=== PATIENT | male | born 1970 | race Hispanic/Latino ===

== ENCOUNTER 2024-02-09 08:09 | Inpatient (IN) | payer SELFPAY ==
[~2024-02-09] VITALS: Ht 175.3 cm; Wt 96.5 kg
--- NOTE | 2024-02-09 08:23 | EKG ---
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
--- NOTE | 2024-02-09 08:32 | ERN ---
General Chief Complaint: Shortness of Breath Stated Complaint: SOB X 1 MONTH Time Seen by MD: 08:11 Source: patient History of Present Illness Initial Comments Patient is a 54-year-old male coming in to be evaluated for shortness of breath. Per patient he has been having this shortness of breath every morning for one month. He states he walks around and the symptoms improved on their own. He also states that he has a history of high blood pressure but has not been taking his medication. Allergies: Coded Allergies: No Known Drug Allergies (Unverified Allergy, Intermediate, 02/09/24) Past Medical History Past Medical History: Hypertension Past Surgical History: None ROS Dictation CONSTITUTIONAL: No chills, no fever, no weakness, no diaphoresis, no malaise. HEAD/FACE: No signs of trauma. EENT: No eye pain, no blurred vision, no tearing, no double vision, no ear pain, no ear discharge, no nose pain, no nasal congestion, no throat pain, no throat swelling, no mouth pain. RESPIRATORY: No cough, no orthopnea, no SOB, no stridor, no wheezing. CARDIOVASCULAR: No chest pain, no edema, no palpitations, no syncope. GASTROINTESTINAL/ABDOMINAL: No abdominal pain, no constipation, no diarrhea, no nausea, no vomiting. GENITOURINARY: No abnormal discharge, no dysuria, no frequent urination, no hematuria. No complaints of pain in the genitals. MUSCULOSKELETAL: No back pain, no gout, no joint pain, no joint swelling, no muscle pain, no muscle stiffness, no neck pain. INTEGUMENTARY: No change in color, no change in hair/nails, no dryness, no lesion, no lumps, no rash. NEUROLOGICAL/PSYCH: No anxiety, not depressed, no emotional problem, no headache, no numbness, no pre-existing deficit, no history of seizures, no tremors, no weakness. HEMATOLOGIC/LYMPHATIC: Not anemic, no history of blood clots, no apparent bleeding, no bruising, glands not swollen. All Systems Negative, Except as Noted. Physical Exam Physical Exam Dictation VITAL SIGNS: Reviewed. GENERAL APPEARANCE: Alert, oriented x3, no acute distress, obese. HEAD AND FACE: Non-traumatic. EYES: PERRL, pink conjunctivas, eyelid no trauma, anterior chamber clear. EARS: Pinnas intact and no signs of trauma or erythema. Ear canals clear and no discharge. TMs no erythema. NOSE: No discharge, no bleeding. OROPHARYNX: Mouth normal, teeth no caries, tongue pink. Pharynx clear, no erythema. Tonsils no exudates, no abscesses noted. Mucous membrane moist. NECK: Supple, non-tender, no thyromegaly, no masses, no JVD, no bruits. BREAST: Deferred. CHEST: No tenderness, no crepitus, no paradoxical movement, no retractions. LUNGS: Clear, well-ventilated, symmetric, no rales, no wheezing, no rhonchi, no stridor, good breath sounds bilaterally. HEART: Regular rate, regular rhythm, no murmur, no gallops. VASCULAR: No peripheral edema. ABDOMEN: Soft, positive bowel sounds, nondistended, no guarding, nontender, no rebound, no masses no hepatomegaly, no splenomegaly, no Payne's sign, no hernias. RECTAL: Deferred. GENITAL: Deferred. NEUROLOGICAL: Normal speech, gross motor function intact, gross sensory function intact. MUSCULOSKELETAL: Neck nontender, full range of motion, back nontender, full range of motion. EXTREMITIES: Nontender, full range of motion. SKIN: Color pink, dry, no turgor, no rash, no lacerations, no abrasions, no contusions. LYMPHATICS: Deferred. Results Laboratory and Microbiology Lab and Micro Result Laboratory Tests Test 02/09/24 08:34 02/09/24 10:11 White Blood Count 6.1 K/uL (4.8-10.8) Red Blood Count 5.71 MIL/uL (4.50-6.20) Hemoglobin 16.6 g/dL (14.0-18.0) Hematocrit 48.9 % (42-54) Mean Corpuscular Volume 85.6 fL (79-99) Mean Corpuscular Hemoglobin 29.1 pg (27.0-33.0) Mean Corpuscular Hemoglobin Concent 33.9 g/dL (32.0-36.0) Red Cell Distribution Width 12.9 % (11.0-15.5) Platelet Count 156 K/uL (130-400) Mean Platelet Volume 10.8 fL (7.5-10.5) H Immature Granulocyte % (Auto) 0.2 % (0-1) Neutrophils (%) (Auto) 64.8 % (40.0-77.0) Lymphocytes (%) (Auto) 25.7 % (21.0-51.0) Monocytes (%) (Auto) 6.9 % (3.0-13.0) Eosinophils (%) (Auto) 2.1 % (0.0-8.0) Basophils (%) (Auto) 0.3 % (0.0-5.0) Neutrophils # (Auto) 3.9 K/uL (1.8-7.7) Lymphocytes # (Auto) 1.6 K/uL (1.0-4.8) Monocytes # (Auto) 0.4 K/uL (0.1-1.0) Eosinophils # (Auto) 0.13 K/uL (0.00-0.70) Basophils # (Auto) 0.02 K/uL (0.00-0.20) Absolute Immature Granulocyte (auto 0.01 K/uL (0-1) Nucleated Red Blood Cells 0.0 % (0.0-0.19) Prothrombin Time 10.6 SEC (9.6-11.6) Prothromb Time International Ratio 0.98 (0.85-1.15) Activated Partial Thromboplast Time 27.1 SEC (26.3-35.5) Sodium Level 143 mmol/L (136-145) Potassium Level 3.3 mmol/L (3.5-5.1) L Chloride Level 104 mmol/L (101-111) Carbon Dioxide Level 31 mmol/L (21-32) Blood Urea Nitrogen 8 mg/dL (7-18) Creatinine 0.9 mg/dL (0.5-1.3) Glomerular Filtration Rate Calc 100 mL/min (>90) Random Glucose 106 mg/dL (70-105) H Total Calcium 8.6 mg/dL (8.5-10.1) Magnesium Level 1.90 mg/dL (1.80-2.40) Total Creatine Kinase 126 U/L (21-232) Troponin I High Sensitivity 641 ng/L (4-75) *H 652 ng/L (4-75) *H B-Type Natriuretic Peptide 144 pg/mL (0-100) H Labs Reviewed?: Yes EKG/XRAY/US/CT/MRI EKG Comment 02/09/2024 time 7:49 a.m. Ventricular rate [address] wave elevation or depression [place] 182 MDM MDM: Differential diagnosis: Rationale: Tests considered and ordered secondary to shared decision making include: Previous outside records reviewed: Old ER visits. Risk of complication and/or morbidity or mortality of patient management: None Medications-Per medication reconciliation Need for hospitalization: Patient does not meet criteria for hospitalization. Need for emergency major/minor surgery: No There are no social concerns with this patient. Prescription drug management Prescriptions will include symptomatic care Patient's prior external medical records from other ER visits were reviewed by me as indicated. Prior testing and results from previous visits were reviewed. Prior tests were taken into account with medical decision making and resource utilization, independent historian/historians were used to obtain complete medical history. I independently interpreted the test that were performed, results were reviewed by me and considered findings on radiology if ordered. Medical management and examination interpretation discussions were had by me with other qualified healthcare professionals as indicated for the patient's care. ED Course Orders Procedure Category Date Status Time 12 Lead Ekg Tracing- EKG 02/09/24 Complete Technical 08:15 Cbc With Differential LAB 02/09/24 Complete 08:22 Prothrombin Time With LAB 02/09/24 Complete INR 08:22 B-Type Natriuretic LAB 02/09/24 Complete Peptide 08:22 Chest 1vw RAD 02/09/24 Resulted 08:22 Magnesium LAB 02/09/24 Complete 08:22 Creatine Kinase, Total LAB 02/09/24 Complete 08:22 Troponin I High LAB 02/09/24 Complete Sensitivity 08:22 Urinalysis Profile LAB 02/09/24 Logged 08:22 Partial LAB 02/09/24 Complete Thromboplastin Time 08:22 Basic Metabolic Panel LAB 02/09/24 Complete 08:22 Troponin I High LAB 02/09/24 Complete Sensitivity 09:50 Aspirin 325mg Tab PHA 02/09/24 Complete (Aspirin 325mg Tab) 10:00 Heparin 5,000 Unit PHA 02/09/24 In Process Vial (Heparin 5,000 U 10:00 Labetalol 20mg Syg PHA 02/09/24 Complete (Trandate 20mg Syg) 12:00 Clonidine Hcl 0.2 Mg PHA 02/09/24 Complete Tablet (Catapres 0. 12:00 Vital Signs(Adult CPOE 02/09/24 Transmitted Hospitalist) 12:02 Nurse To Enter Home CPOE 02/09/24 Transmitted Medication 12:02 Admit Orders ADM 02/09/24 Transmitted 12:02 Edm Admit Bridge Order ADM 02/09/24 Transmitted 12:02 Current Medications Medications (Trade) Dose Ordered Sig/Chris Route PRN Reason Start Time Stop Time Status Last Admin Dose Admin Aspirin (Aspirin 325mg Tab) 325 mg ONCE ONCE PO 02/09/24 10:00 02/09/24 10:01 DC Clonidine HCl (CATApres 0.2 MG TAB) 0.2 mg ONCE ONCE PO 02/09/24 12:00 02/09/24 12:01 DC Heparin Sodium (Porcine) (HEParin 5,000 UNIT VIAL) 5,000 unit Q12H SQ 02/09/24 10:00 03/10/24 09:59 Labetalol HCl (TRANdate 20MG SYG) 10 mg ONCE ONCE IV 02/09/24 12:00 02/09/24 12:02 DC Vital Signs Date Time Temp Pulse Resp B/P (MAP) Pulse Ox O2 Delivery O2 Flow Rate FiO2 02/09/24 08:11 98.6 101 20 226/145 96 Room Air 0 Critical Care Note Comments Critical Care Procedure Note Authorized and Performed by: Total critical care time: Approximately 36 minutes Due to a high probability of clinically significant, life threatening deterioration, the patient required my highest level of preparedness to intervene emergently and I personally spent this critical care time directly and personally managing the patient. This critical care time included obtaining a history; examining the patient; pulse oximetry; ordering and review of studies; arranging urgent treatment with development of a management plan; evaluation of patient's response to treatment; frequent reassessment; and, discussions with other providers. This critical care time was performed to assess and manage the high probability of imminent, life-threatening deterioration that could result in multi-organ failure. It was exclusive of separately billable procedures and treating other patients and teaching time. Please see MDM section and the rest of the note for further information on pa tient assessment and treatment. DX & DISP Disposition: Inpatient Decision to Admit Time: 12:17 Departure Impression: Primary Impression: NSTEMI (non-ST elevated myocardial infarction) Condition: Stable Referrals: NONE (PCP) I have reviewed, & agreed with my scribe's, documentation. (Entered by Carola Sam, acting as a scribe for Dr. Fay) I personally scribed for SIMIN FAY MD ([email or web address]) on 02/09/24 at 09:52. Electronically submitted by Carola Sam ([email or web address]). SIMIN FAY MD Feb 09, 2024 08:32
[2024-02-09 08:42] LABS: BASOPHILS # (AUTO) 0.02 K/uL (0.00-0.20); BASOPHILS % (AUTO) 0.3 % (0.0-5.0); EOSINOPHILS # (AUTO) 0.13 K/uL (0.00-0.70); EOSINOPHILS % (AUTO) 2.1 % (0.0-8.0); HEMATOCRIT 48.9 % (42-54); IMMATURE GRANULOCYTE ABSOLUTE 0.01 K/uL (0-1); LYMPHOCYTES # (AUTO) 1.6 K/uL (1.0-4.8); LYMPHOCYTES % (AUTO) 25.7 % (21.0-51.0); MEAN CORPUSCULAR HEMOGLOBIN 29.1 pg (27.0-33.0); MEAN CORPUSCULAR HGB CONC 33.9 g/dL (32.0-36.0); MEAN CORPUSCULAR VOLUME 85.6 fL (79-99); MONOCYTES # (AUTO) 0.4 K/uL (0.1-1.0); MONOCYTES % (AUTO) 6.9 % (3.0-13.0); NEUTROPHILS # (AUTO) 3.9 K/uL (1.8-7.7); NEUTROPHILS % (AUTO) 64.8 % (40.0-77.0); PLATELET COUNT (AUTO) 156 K/uL (130-400); RED BLOOD CELL COUNT(AUTO) 5.71 MIL/uL (4.50-6.20); RED CELL DISTRIBUTION WIDTH 12.9 % (11.0-15.5); WHITE BLOOD COUNT (AUTO) 6.1 K/uL (4.8-10.8)
[2024-02-09 08:50] LABS: CREATININE 0.9 mg/dL (0.5-1.3); POTASSIUM 3.3 mmol/L (3.5-5.1)
[2024-02-09 08:54] LABS: INR 0.98 (0.85-1.15); PROTHROMBIN TIME 10.6 SEC (9.6-11.6)
[2024-02-09 08:55] LABS: MAGNESIUM 1.9 mg/dL (1.80-2.40); PARTIAL THROMBOPLASTIN TIME 27.1 SEC (26.3-35.5)
[2024-02-09 09:11] LABS: B-TYPE NATRIURETIC PEPTIDE 144 pg/mL (0-100)
[2024-02-09] MEDS ORDERED: HEParin 5,000 UNIT VIAL SQ SCH (10:00)
--- NOTE | 2024-02-09 10:37 | HMCIMG ---
CHEST 1VW REASON: sob COMPARISON: None. FINDINGS: Single view of the chest was obtained. Lungs are clear. Heart size is normal. There is no pulmonary vascular congestion. Mediastinum and bony thorax appear unremarkable. IMPRESSION: 1. Normal single view chest x-ray.
[2024-02-09] MEDS ORDERED: LAbetaLOL 20MG SYG IV ONE (12:00)
--- NOTE | 2024-02-09 13:43 | HP ---
[facility] Date of Service: Feb 09, 2024 Time of Service: 13:28 HISTORY OF PRESENT ILLNESS: [ ] This is a 54-year-old male that presents in ER with concerns of shortness a breath. Onset one week, however today was different shortness of breast duration was longer. He reports he only happens in the morning when he is getting dressed to go to work. Patient also reports edema to lower extremity occasionally over the past week. Associated symptoms racing of the heart. Denied chest pain,or dizziness Patient denies smoking but does report drinks alcohol on a daily basis eight beers daily. Patient has significant medical history hypertension hyperlipidemia however noncompliance with medication treatment. Labs in ER: Troponin 641 and 652 with a BNP of 144. vital sign on arrival : Blood pressure on arrival of 226/145mmHg with a hr of 101. Labetalol 10 mg IV. We will start on losartan ACS protocol aspirin statin therapy initiated. ACS protocol was initiated in ED. REVIEW OF SYSTEMS CONSTITUTIONAL: Denies fevers, chills, or night sweats. No unintentional weight loss reported. NEUROLOGICAL: Denies headache, amaurosis fugax, motor weakness, sensory deficit, vertigo/spinning sensation, gait abnormalities, or tremors. ENT: No hearing loss, otalgia, otorrhea, rhinitis, rhinorrhea, hoarseness, or sore throat. CARDIOVASCULAR: Denies any exertional angina, dyspnea on exertion, orthopnea, paroxysmal nocturnal dyspnea, palpitations, life-threatening arrhythmias, claudication. PULMONARY: Denies any shortness of breath, cough, phlegm/sputum, hemoptysis, pleuritic chest pain. SLEEP: Denies morning headaches, daytime somnolence or napping. Denies difficulty falling asleep, staying asleep, waking from sleep. Denies knowledge of snoring. GASTROINTESTINAL: Denies any type of dysphagia to either liquids or solids. Denies nausea, vomiting, pyrosis, early satiety, abdominal pain, diarrhea, constipation, or changes in stool consistency or caliber. Denies coffee-ground emesis, hematemesis, hematochezia, or melanotic stools. GENITOURINARY: Denies frequency, urgency, nocturia, hematuria or incontinence (Storage/Irritative symptoms.) Low urinary stream, straining to void, urinary intermittency or hesitancy, splitting of the voiding stream, terminal dribbling. ENDOCRINOLOGIC: Denies polyuria, polydipsia, polyphagia or heat/cold intolerances. HEMATOLOGIC: Denies thrombophilia/previous clots, or coagulopathy/bleeding disorders. ONCOLOGIC: Denies personal history of malignancy. DERMATOLOGIC: Denies rashes or pruritus. PSYCHIATRIC: Denies any suicidal or homicidal ideation. Denies hallucinations. PAST MEDICAL HISTORY: [ ] HTN hyperlipidemia PAST SURGICAL HISTORY: [ ]None PAST SOCIAL HISTORY: [ ] Denies smoking tobacco products and marijuana cocaine use Drinks alcohol beers 8-12 on a daily basis FAMILY HISTORY: [ ] Heart disease Coded Allergies: No Known Drug Allergies (Unverified Allergy, Intermediate, 02/09/24) PHYSICAL EXAM GENERAL APPEARANCE: The patient is awake, alert, and oriented, in no acute cardiopulmonary distress. NEUROLOGICAL: Cranial nerves II-XII grossly intact. Motor is 5/5 in bilateral upper and lower extremities proximal to distal. No sensory deficits. HEENT: Face is symmetric. Pupils are equal and reactive. Extraocular movements are intact. NECK: Supple. No JVD. No thyromegaly. No submental, submandibular, pre- /postauricular, occipital or supraclavicular lymphadenopathy. CHEST: Normal chest expansion. No Telemetry. LUNGS: Absence of any rales, rhonchi or any wheezing. CARDIOVASCULAR: Regular. S1 and S2 normal. No appreciable rubs, murmurs or gallops. ABDOMEN: Soft, nontender, and nondistended. There is no rebound, voluntary guarding, or rigidity. : Deferred. No Keller. EXTREMITIES: Non-edematous and not cyanotic. No clubbing. Good capillary refill. SKIN: No skin breakdown. Vital Sign (Last 24 Hours) 02/09/24 08:11 Temp 98.6 Pulse 101 Resp 20 B/P (MAP) 226/145 Pulse Ox 96 O2 Delivery Room Air O2 Flow Rate 0 LABS: Laboratory: Test 02/09/24 10:11 02/09/24 08:34 Range/Units Troponin I High Sensitivity 652 *H 4-75 ng/L White Blood Count 6.1 4.8-10.8 K/uL Red Blood Count 5.71 4.50-6.20 MIL/uL Hemoglobin 16.6 14.0-18.0 g/dL Hematocrit 48.9 42-54 % Mean Corpuscular Volume 85.6 79-99 fL Mean Corpuscular Hemoglobin 29.1 27.0-33.0 pg Mean Corpuscular Hemoglobin Concent 33.9 32.0-36.0 g/dL Red Cell Distribution Width 12.9 11.0-15.5 % Platelet Count 156 130-400 K/uL Mean Platelet Volume 10.8 H 7.5-10.5 fL Immature Granulocyte % (Auto) 0.2 0-1 % Neutrophils (%) (Auto) 64.8 40.0-77.0 % Lymphocytes (%) (Auto) 25.7 21.0-51.0 % Monocytes (%) (Auto) 6.9 3.0-13.0 % Eosinophils (%) (Auto) 2.1 0.0-8.0 % Basophils (%) (Auto) 0.3 0.0-5.0 % Neutrophils # (Auto) 3.9 1.8-7.7 K/uL Lymphocytes # (Auto) 1.6 1.0-4.8 K/uL Monocytes # (Auto) 0.4 0.1-1.0 K/uL Eosinophils # (Auto) 0.13 0.00-0.70 K/uL Basophils # (Auto) 0.02 0.00-0.20 K/uL Absolute Immature Granulocyte (auto 0.01 0-1 K/uL Nucleated Red Blood Cells 0.0 0.0-0.19 % Prothrombin Time 10.6 9.6-11.6 SEC Prothromb Time International Ratio 0.98 0.85-1.15 Activated Partial Thromboplast Time 27.1 26.3-35.5 SEC Sodium Level 143 136-145 mmol/L Potassium Level 3.3 L 3.5-5.1 mmol/L Chloride Level 104 101-111 mmol/L Carbon Dioxide Level 31 21-32 mmol/L Blood Urea Nitrogen 8 7-18 mg/dL Creatinine 0.9 0.5-1.3 mg/dL Glomerular Filtration Rate Calc 100 >90 mL/min Random Glucose 106 H 70-105 mg/dL Total Calcium 8.6 8.5-10.1 mg/dL Magnesium Level 1.90 1.80-2.40 mg/dL Total Creatine Kinase 126 21-232 U/L B-Type Natriuretic Peptide 144 H 0-100 pg/mL Current Medications Medications (Trade) Dose Ordered Sig/Chris Route PRN Reason Start Time Stop Time Status Last Admin Dose Admin Heparin Sodium (Porcine) (HEParin 5,000 UNIT VIAL) 5,000 unit Q12H SQ 02/09/24 10:00 03/10/24 09:59 DIAGNOSTICS / RADIOLOGY: [ ] ASSESSMENT: NSTEMI POA suspecting type II UT in the setting of uncontrolled blood pressure POA HTN urgency POA Tachycardia POA Dyspnea with minimal exertion POA ETOH abuse POA hypokalemia POA PLAN: [ ] admit to [facility] consult: Conservation Biology Professor Test: Echo to evaluate LV function CE: x1 at 1400 -mountain or glacier guide Recommend against therapeutic anticoagulation at this time as troponin elevation likely secondary to uncontrolled HTN due to risk of subsequent bleeding labs: lipid panel, TSH ACS protocol: asa , statin and losartan 50 mg po daily. first dose now CIWA protocol provided counseling social work assistant for community resources. Replace electrolytes as needed per protocol goal is to keep potassium above four and magnesium above 2 PRN: MEDICATIONS Tylenol 650 mg po every 4 hrs for fever Zofran 4 mg IV every 6 hrs for n/v Hydralazine 10 mg IV every 4 hrs systolic pressure > 160 Supportive measures: DVT ppx, GI ppx all questions answered time spent: > 35 min Supervising MD: Dr. Sanderson c/d ATTESTATION BY PHYSICIAN I have seen and examined the patient. I reviewed the documentation, medical decision making, and treatment plan as noted by the mid-level provider above. I agree with the findings and plan of care. Mine Sanderson MD, ELIZABETH NP Feb 09, 2024 13:43
--- NOTE | 2024-02-09 13:59 | CONS ---
[facility] CARDIOLOGY CONSULTATION REPORT Cardiology consultation note dictated for Belia Crowe MD Date Patient Seen: Feb 09, 2024 Requesting Physician: Kathrine Alanis NP Reason for Consultation: NSTEMI History of Present Illness: This is a 54-year-old male with a past medical history of HTN, noncompliance, and drinks 12 bottles of 12oz beers daily who presented to the ED with complaints of shortness of breath for a 1 month duration. Cardiology was consulted for NSTEMI. The patient admits to daily shortness of breath upon waking and walking to the restroom first thing in the morning with orthopnea for approximately one month, but today was the worst he felt and decided to seek medical treatment. He currently denies chest pain, palpitations, dizziness, nausea, vomiting, fever or cough. EKG demonstrated NSR with a hr of 99bpm with LVH and left atrial enlargement. Troponin 641 and 652 with a BNP of 144. Blood pressure on arrival of 226/145mmHg with a hr of 101. Past Medical History: As per HPI and summarize below Past Surgical History: None. Family History: The patient's mother had hypertension and breast cancer. The patient's father had prostate cancer. Social History: The patient lives with a friend, he is in [place] working but lives in another state. Habits: The patient denies tobacco or illicit drug use. He drinks 12 bottles of 12oz beers daily. Home Meds: None Current Meds: Current Medications Medications Dose Ordered Sig/Chris Start Time Stop Time Status Last Admin Enoxaparin Sodium 80 mg DAILY 02/10/24 09:00 03/11/24 08:59 Acetaminophen 650 mg Q4H PRN 02/09/24 14:00 03/10/24 13:59 Aspirin 81 mg DAILY 02/10/24 09:00 03/11/24 08:59 Atorvastatin Calcium 20 mg HS 02/09/24 21:00 03/10/24 20:59 Magnesium Sulfate 50 ml @ 0 mls/hr PROTOCOL PRN 02/09/24 14:00 03/10/24 13:59 Potassium Chloride 100 ml @ 100 mls/hr AD PRN 02/09/24 14:00 03/10/24 13:59 Potassium Chloride 20 meq AD PRN 02/09/24 14:00 03/10/24 13:59 Potassium Chloride 20 meq AD PRN 02/09/24 14:00 03/10/24 13:59 Thiamine HCl 100 mg ONCE ONCE 02/09/24 14:00 02/09/24 14:01 Thiamine HCl 100 mg DAILY 02/10/24 09:00 03/11/24 08:59 Review of Systems: CONST: No fever, fatigue, or weight changes. EYES: No recent vision problems. ENT: No congestion, ear pain, or sore throat. C/V: No chest pain, palpitations, or edema. RESP: No cough, congestion, wheezing or shortness of breath. GI: No abdominal pain, nausea, vomiting, constipation, or diarrhea. : No incontinence or dysuria. SKIN: No rash. NEURO: No headache, focal numbness or weakness, dizziness, or seizures. PSYCH: No depression or anxiety. HEME: No abnormal bruising or bleeding. LYMPH: No swollen glands. Physical Examination: GENERAL: No acute distress. HEAD: Normal with no signs of head trauma. EYES: PERRLA, EOMI, conjunctiva and sclera normal. ENT: Hearing grossly intact, normal oropharynx. NECK: Supple without JVD. There is no tenderness, lymphadenopathy, or masses. No thyromegaly. Normal carotid upstrokes without bruits. LUNGS: Clear breath sounds bilaterally. No wheezes, or rhonchi. HEART: Normal rate and rhythm. Normal S1 and S2 without murmurs, gallop or rub. VASC: Peripheral pulses +2 bilaterally. ABD: Bowel sounds normal, soft, nontender, no masses, no organomegaly. No audible bruits. : Not examined LYMPH: No lymphadenopathy noted. EXT: No clubbing, cyanosis or edema. SKIN: No rashes or lesions noted. NEURO: Awake, alert, and oriented x3. No focal sensory or strength deficits noted. Vital Signs (last 8hr) Date Time Temp Pulse Resp B/P (MAP) Pulse Ox O2 Delivery O2 Flow Rate FiO2 02/09/24 08:11 98.6 101 20 226/145 96 Room Air 0 Laboratory: Hematology Labs: Test 02/09/24 08:34 Range/Units White Blood Count 6.1 4.8-10.8 K/uL Red Blood Count 5.71 4.50-6.20 MIL/uL Hemoglobin 16.6 14.0-18.0 g/dL Hematocrit 48.9 42-54 % Mean Corpuscular Volume 85.6 79-99 fL Mean Corpuscular Hemoglobin 29.1 27.0-33.0 pg Mean Corpuscular Hemoglobin Concent 33.9 32.0-36.0 g/dL Red Cell Distribution Width 12.9 11.0-15.5 % Platelet Count 156 130-400 K/uL Mean Platelet Volume 10.8 H 7.5-10.5 fL Immature Granulocyte % (Auto) 0.2 0-1 % Neutrophils (%) (Auto) 64.8 40.0-77.0 % Lymphocytes (%) (Auto) 25.7 21.0-51.0 % Monocytes (%) (Auto) 6.9 3.0-13.0 % Eosinophils (%) (Auto) 2.1 0.0-8.0 % Basophils (%) (Auto) 0.3 0.0-5.0 % Neutrophils # (Auto) 3.9 1.8-7.7 K/uL Lymphocytes # (Auto) 1.6 1.0-4.8 K/uL Monocytes # (Auto) 0.4 0.1-1.0 K/uL Eosinophils # (Auto) 0.13 0.00-0.70 K/uL Basophils # (Auto) 0.02 0.00-0.20 K/uL Absolute Immature Granulocyte (auto 0.01 0-1 K/uL Nucleated Red Blood Cells 0.0 0.0-0.19 % Chemistry Labs: Test 02/09/24 10:11 02/09/24 08:34 Range/Units Troponin I High Sensitivity 652 *H 4-75 ng/L Sodium Level 143 136-145 mmol/L Potassium Level 3.3 L 3.5-5.1 mmol/L Chloride Level 104 101-111 mmol/L Carbon Dioxide Level 31 21-32 mmol/L Blood Urea Nitrogen 8 7-18 mg/dL Creatinine 0.9 0.5-1.3 mg/dL Glomerular Filtration Rate Calc 100 >90 mL/min Random Glucose 106 H 70-105 mg/dL Total Calcium 8.6 8.5-10.1 mg/dL Magnesium Level 1.90 1.80-2.40 mg/dL Total Creatine Kinase 126 21-232 U/L B-Type Natriuretic Peptide 144 H 0-100 pg/mL Coagulation Labs: Test 02/09/24 08:34 Range/Units Prothrombin Time 10.6 9.6-11.6 SEC Prothromb Time International Ratio 0.98 0.85-1.15 Activated Partial Thromboplast Time 27.1 26.3-35.5 SEC Diagnostics / Radiology: Impression and Plan: Hypertensive emergency NSTEMI Noncompliance Daily alcohol consumption of 12 bottles of 12oz beers Hypertensive emergency Blood pressure at 0811 of 226/145mmHg with a hr of 101, no additional readings have been entered -Recheck BP NSTEMI, type II [place] in the setting of uncontrolled blood pressure EKG demonstrated NSR with a hr of 99bpm with LVH and left atrial enlargement Ti 641 and 652 -Echocardiogram to assess LV function -Continue aspirin and statin -Recommend against therapeutic anticoagulation at this time as troponin elevation likely secondary to uncontrolled HTN due to risk of subsequent bleeding. Will follow up with third troponin and if significant uptrend, with improved control of BP, can initiate heparin gtt pending further evaluation/echo. 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
[2024-02-09] MEDS ORDERED: MAGNESIUM 2GM PREMIX 50ML 50 ML IV PRN (14:00)
[2024-02-09] MEDS ORDERED: PoTASSium chloRIDE 20MEQ/100ML 100 ML IV PRN (14:00)
[2024-02-09] MEDS ORDERED: PoTASSium chl 10% ELIXIR 20MEQ 20 MEQ/15 ML UDCUP PO PRN (14:00)
[2024-02-09] MEDS ORDERED: acetaMINOPHEN 325 MG TAB PO PRN (14:00)
[2024-02-09 14:14] LABS: THYROID STIMULATING HORMONE 1.6 uIU/mL (0.36-3.74)
--- NOTE | 2024-02-09 15:49 | NUR ---
BEDDED TO ER 19 AT THIS TIME
[2024-02-09] MEDS: PoTASSium chloRIDE 20MEQ ER 20 MEQ ERTAB PO ONE (15:57)
[2024-02-09] MEDS: THIAMINE HCL 100 MG TABLET PO ONE (15:58)
[2024-02-09] MEDS: ASPIRIN 81MG CHEW TAB ONE (15:58)
[2024-02-09] MEDS: LoSARTan 50 MG TABLET PO ONE (15:58)
[2024-02-09] MEDS: cloNIDine HCL 0.2 MG TABLET PO ONE (15:58)
[2024-02-09] MEDS: ASPIRIN 325MG TAB PO ONE (16:01)
[2024-02-09] MEDS: ASPIRIN 325MG TAB ONE (16:06)
--- NOTE | 2024-02-09 16:09 | NUR ---
GIVEN URINAL FOR UA ORDER
[2024-02-09] MEDS: LAbetaLOL 20MG SYG IV PRN (17:28)
--- NOTE | 2024-02-09 18:10 | NUR ---
PATIENT STATES HAS ZERO HOME MEDICATIONS TO REPORT
[2024-02-09] MEDS: atorVAStatin 20 MG TABLET PO SCH (21:46)
--- NOTE | 2024-02-10 05:11 | HMCSR ---
APPROVED REPORT EXAM: Two-dimensional and M-mode echocardiogram with Doppler and color Doppler. INDICATION ICD: Shortness of breath R06.02 2D Dimensions RVDd4.0 cmLVEF(%)40.0 (>50%)LVED Vol(simp.)180.0 mL IVSd1.3 (0.7-1.1cm)FS(%)20 %LVES Vol(simp.)120.0 mL LVDd5.6 (3.8-5.6cm)LA (2D)4.9 (1.6-4.0cm)LVEF(%, simp.)33 % PWd1.4 (0.7-1.1cm)Ao Root(2D)3.5 (2.0-3.7cm)LA ESV INDEX (4CH)36.30 mL/m2 IVSs1.5 cmLVOT diam2.5 (1.8-2.4cm)LA ESV INDEX (2CH)44.20 mL/m2 LVDs4.5 (2.5-4.0cm)IVC diam1.9 cmLA ESV INDEX (BP)43.60 mL/m2 PWs2.2 cm Deformation Strain Apical 4-9.0 % Apical 2-10.0 % Apical 3-11.0 % Global Strain-10.0 % M-Mode Dimensions EPSS2.0 cm LA (MM)4.9 (1.6-4.0cm) Ao Root(MM)3.8 (2.0-3.7cm) Aortic Valve AoV VTI0.2 mAo Mean GR3.0 mmHgLVOT VTI0.13 m ALISHA (VMAX)3.4 cm2AVA (VTI) 3.4 cm2 Mitral Valve MV E Bmte986.0 cm/sDECEL Ounx431 ms MV A Vmax48.4 cm/sP 1/2 T82 ms E/A ratio2.4MVA (PHT)2.7 cm2 MR Max PG63 mmHg TDI E/E' Rbrdsj31.2E/E' Tmldkbb49.6 Medial E' Peak V4.30 cm/sLateral E' Peak V4.40 cm/s Pulmonary Valve PV VTI0.19 mPV Mean GR2 mmHg PI End Joana. Gil 133.0 cm/s Left Ventricle The left ventricle is mildly dilated. GLS -10% There is global hypokinesis of the left ventricle. Mil d concentric left ventricular hypertrophy. LVEF is 30-35%. Stage II diastolic dysfunction. Right Ventricle The right ventricle is normal size. The right ventricular systolic function is normal. Atria The left atrium is moderately dilated. The right atrium size is normal. Aortic Valve The aortic valve is normal in structure. No aortic regurgitation is present. There is no aortic valvu lar stenosis. Mitral Valve The mitral valve is normal in structure. There is trivial mitral valve regurgitation noted. There is no mitral valve stenosis. Tricuspid Valve The tricuspid valve is normal in structure. There is no tricuspid valve regurgitation noted. Pulmonic Valve The pulmonary valve is normal in structure. There is no pulmonic valvular regurgitation. Great Vessels The aortic root is normal in size. The IVC is normal in size and collapses >50% with inspiration. Pericardium There is no pericardial effusion. Other Information Quality : GoodRhythm : NSR Conclusion There is global hypokinesis of the left ventricle. LVEF is 30-35%. Mild concentric left ventricular hypertrophy. Stage II diastolic dysfunction. The left atrium is moderately dilated.
--- NOTE | 2024-02-10 05:30 | NUR ---
DR MOCK AT BEDSIDE TO EVALUATE PATIENT
--- NOTE | 2024-02-10 05:33 | PN ---
[facility] CARDIOLOGY PROGRESS NOTE Date Patient Seen: Feb 10, 2024 Time of Visit: 05:30 Problem List: Hypertension Elevated troponin Interval History: Seen in ER holding No complaints No chest pain this morning Denies dyspnea. Physical Examination: GENERAL: [No acute distress.] HEAD: [Normal with no signs of head trauma.] NECK: [Normal carotid upstrokes without bruits.] LUNGS: [Clear breath sounds bilaterally. No wheezes, or rhonchi.] HEART: [Normal rate and rhythm. Normal S1 and S2 without murmurs, gallop or rub.] VASC: [Peripheral pulses +2 bilaterally.] ABD: [Bowel sounds normal, soft, nontender] EXT: [No clubbing, cyanosis or edema.] SKIN: [No rashes or lesions noted.] NEURO: [Awake, alert, and oriented x3. No focal sensory or strength deficits noted.] Laboratory: [ ] Hematology Labs: Test 02/09/24 08:34 Range/Units White Blood Count 6.1 4.8-10.8 K/uL Red Blood Count 5.71 4.50-6.20 MIL/uL Hemoglobin 16.6 14.0-18.0 g/dL Hematocrit 48.9 42-54 % Mean Corpuscular Volume 85.6 79-99 fL Mean Corpuscular Hemoglobin 29.1 27.0-33.0 pg Mean Corpuscular Hemoglobin Concent 33.9 32.0-36.0 g/dL Red Cell Distribution Width 12.9 11.0-15.5 % Platelet Count 156 130-400 K/uL Mean Platelet Volume 10.8 H 7.5-10.5 fL Immature Granulocyte % (Auto) 0.2 0-1 % Neutrophils (%) (Auto) 64.8 40.0-77.0 % Lymphocytes (%) (Auto) 25.7 21.0-51.0 % Monocytes (%) (Auto) 6.9 3.0-13.0 % Eosinophils (%) (Auto) 2.1 0.0-8.0 % Basophils (%) (Auto) 0.3 0.0-5.0 % Neutrophils # (Auto) 3.9 1.8-7.7 K/uL Lymphocytes # (Auto) 1.6 1.0-4.8 K/uL Monocytes # (Auto) 0.4 0.1-1.0 K/uL Eosinophils # (Auto) 0.13 0.00-0.70 K/uL Basophils # (Auto) 0.02 0.00-0.20 K/uL Absolute Immature Granulocyte (auto 0.01 0-1 K/uL Nucleated Red Blood Cells 0.0 0.0-0.19 % Chemistry Labs: Test 02/09/24 15:18 02/09/24 10:11 02/09/24 08:34 Range/Units Troponin I High Sensitivity 578 *H 4-75 ng/L Triglycerides Level 232 H 30-200 mg/dL Cholesterol Level 180 <200 mg/dL LDL Cholesterol 94 0-99 mg/dL HDL Cholesterol 53 29-71 mg/dL Thyroid Stimulating Hormone (TSH) 1.60 0.36-3.74 uIU/mL Sodium Level 143 136-145 mmol/L Potassium Level 3.3 L 3.5-5.1 mmol/L Chloride Level 104 101-111 mmol/L Carbon Dioxide Level 31 21-32 mmol/L Blood Urea Nitrogen 8 7-18 mg/dL Creatinine 0.9 0.5-1.3 mg/dL Glomerular Filtration Rate Calc 100 >90 mL/min Random Glucose 106 H 70-105 mg/dL Total Calcium 8.6 8.5-10.1 mg/dL Magnesium Level 1.90 1.80-2.40 mg/dL Total Creatine Kinase 126 21-232 U/L B-Type Natriuretic Peptide 144 H 0-100 pg/mL Coagulation Labs: Test 02/09/24 15:18 02/09/24 08:34 Range/Units D-Dimer Quantitative (PE/DVT) 248 0-500 ng/mL Prothrombin Time 10.6 9.6-11.6 SEC Prothromb Time International Ratio 0.98 0.85-1.15 Activated Partial Thromboplast Time 27.1 26.3-35.5 SEC Diagnostics / Radiology: Conclusion There is global hypokinesis of the left ventricle. LVEF is 30-35%. Mild concentric left ventricular hypertrophy. Stage II diastolic dysfunction. The left atrium is moderately dilated. DICTATED BY: SHERLY MAXWELL DO DATE: 02/09/24 3255 Impression and Plan: Elevated troponin Hypertensive emergency New onset cardiomyopathy with LVEF 30-35% Heavy ETOH use Diastolic dysfunction Continue aspirin, statin Start terrell-i/arb due to underlying cardiomyopathy Add low dose beta michelle CCTA v lexiscan to evaluate for ischemia given cardiomyopathy SHERLY MAXWELL DO Feb 10, 2024 05:33
[2024-02-10] MEDS ORDERED: ENOXAPARIN SODIUM 80 MG/0.8 ML SQ SCH (09:00)
[2024-02-10] MEDS: ASPIRIN 81MG CHEW TAB PO SCH (09:14)
[2024-02-10] MEDS: LoSARTan 50 MG TABLET PO SCH (09:15)
[2024-02-10] MEDS: metoPROLOL tartRATE 25 MG TAB PO SCH (09:15)
[2024-02-10] MEDS: THIAMINE HCL 100 MG TABLET PO SCH (09:15)
[2024-02-10 09:41] LABS: APPEARANCE,URINE CLEAR (CLEAR); BILIRUBIN,URINE NEGATIVE (NEGATIVE); COLOR,URINE YELLOW (YELLOW); GLUCOSE, URINE (UA) NEGATIVE (NEGATIVE); KETONES,URINE NEGATIVE (NEGATIVE); LEUKOCYTE ESTERASE ,URINE NEGATIVE Leu/uL (NEGATIVE); NITRATE,URINE NEGATIVE (NEGATIVE); OCCULT BLOOD,URINE NEGATIVE (NEGATIVE); PH,URINE 5.5 (5.0-8.0); PROTEIN,URINE 20 mg/dL (NEGATIVE); UROBILINOGEN,URINE 0.2 mg/dL (0.2-1.0)
[2024-02-10 09:42] LABS: AMPHET/METH SCREEN,URINE NEGATIVE (NEGATIVE); BARBITURATE SCREEN, URINE NEGATIVE (NEGATIVE); BENZODIAZEPINES SCREEN,URINE NEGATIVE (NEGATIVE); CANNABINOID SCREEN,URINE NEGATIVE (NEGATIVE); COCAINE SCREEN,URINE NEGATIVE (NEGATIVE); OPIATE SCREEN,URINE NEGATIVE (NEGATIVE); PHENCYCLIDINE SCREEN,URINE NEGATIVE (NEGATIVE)
[2024-02-10 09:44] LABS: ADD UA MICROSCOPIC YES
[2024-02-10 09:46] LABS: MUCUS,URINE RARE LPF (None Seen); RBC,URINE 0-1 /HPF (0-1); SQUAMOUS EPITHELIAL CELL,UR RARE /HPF (0-2)
--- NOTE | 2024-02-10 10:33 | PN ---
[facility] PROGRESS NOTE Date of Service: Feb 10, 2024 Time of Service: 10:27 SUBJECTIVE: [ ] This is a 54-year-old male that presents in ER with concerns of shortness a breath. Onset one week, however today was different shortness of breast duration was longer. He reports he only happens in the morning when he is getting dressed to go to work. Patient also reports edema to lower extremity occasionally over the past week. Associated symptoms racing of the heart. Denied chest pain,or dizziness Patient denies smoking but does report drinks alcohol on a daily basis eight beers daily. Patient has significant medical history hypertension hyperlipidemia however noncompliance with medication treatment. 02/10/2024 patient is seen and examined in ER holding [address] Jimenez patient was seen by bolt man's appreciate their input. Echo new onset of cardiomyopathy with LV EF of 30-35% diastolic dysfunction. Scheduled CCTA with Lexiscan. Patient denies no chest pain or shortness a breath. We will follow- up on Lexiscan results. REVIEW OF SYSTEMS CONSTITUTIONAL: Denies fevers, chills, or night sweats. No unintentional weight loss reported. NEUROLOGICAL: Denies headache, amaurosis fugax, motor weakness, sensory deficit, vertigo/spinning sensation, gait abnormalities, or tremors. ENT: No hearing loss, otalgia, otorrhea, rhinitis, rhinorrhea, hoarseness, or sore throat. CARDIOVASCULAR: Denies any exertional angina, dyspnea on exertion, orthopnea, paroxysmal nocturnal dyspnea, palpitations, life-threatening arrhythmias, claudication. PULMONARY: Denies any shortness of breath, cough, phlegm/sputum, hemoptysis, pleuritic chest pain. SLEEP: Denies morning headaches, daytime somnolence or napping. Denies difficulty falling asleep, staying asleep, waking from sleep. Denies knowledge of snoring. GASTROINTESTINAL: Denies any type of dysphagia to either liquids or solids. Denies nausea, vomiting, pyrosis, early satiety, abdominal pain, diarrhea, constipation, or changes in stool consistency or caliber. Denies coffee-ground emesis, hematemesis, hematochezia, or melanotic stools. GENITOURINARY: Denies frequency, urgency, nocturia, hematuria or incontinence (Storage/Irritative symptoms.) Low urinary stream, straining to void, urinary intermittency or hesitancy, splitting of the voiding stream, terminal dribbling. ENDOCRINOLOGIC: Denies polyuria, polydipsia, polyphagia or heat/cold intoleranc es. HEMATOLOGIC: Denies thrombophilia/previous clots, or coagulopathy/bleeding disorders. ONCOLOGIC: Denies personal history of malignancy. DERMATOLOGIC: Denies rashes or pruritus. PSYCHIATRIC: Denies any suicidal or homicidal ideation. Denies hallucinations. PHYSICAL EXAM GENERAL APPEARANCE: The patient is awake, alert, and oriented, in no acute cardiopulmonary distress. NEUROLOGICAL: Cranial nerves II-XII grossly intact. Motor is 5/5 in bilateral upper and lower extremities proximal to distal. No sensory deficits. HEENT: Face is symmetric. Pupils are equal and reactive. Extraocular movements are intact. NECK: Supple. No JVD. No thyromegaly. No submental, submandibular, pre- /postauricular, occipital or supraclavicular lymphadenopathy. CHEST: Normal chest expansion. No Telemetry. LUNGS: Absence of any rales, rhonchi or any wheezing. CARDIOVASCULAR: Regular. S1 and S2 normal. No appreciable rubs, murmurs or gallops. ABDOMEN: Soft, nontender, and nondistended. There is no rebound, voluntary guarding, or rigidity. : Deferred. No Keller. EXTREMITIES: Non-edematous and not cyanotic. No clubbing. Good capillary refill. SKIN: No skin breakdown. Vital Signs (last 8hr) Date Time Temp Pulse Resp B/P (MAP) Pulse Ox O2 Delivery O2 Flow Rate FiO2 02/10/24 08:55 98.8 73 19 155/93 98 Room Air* 0 02/10/24 07:45 98.8 82 19 153/87 98 Room Air* 0 02/10/24 06:25 57 19 144/80 98 Room Air* 0 02/10/24 05:14 55 20 146/88 96 Room Air* 0 02/10/24 03:44 71 19 135/88 96 Room Air* 0 21 LABS: Laboratory: Test 02/10/24 09:27 02/09/24 15:18 02/09/24 10:11 02/09/24 08:34 Range/Units Urine Color YELLOW YELLOW Urine Appearance CLEAR CLEAR Urine pH 5.5 5.0-8.0 Urine Specific [place] 1.027 1.001-1.031 Urine Protein 20 H NEGATIVE mg/dL Urine Glucose (UA) NEGATIVE NEGATIVE mg/dL Urine Ketones NEGATIVE NEGATIVE mg/dL Urine Occult Blood NEGATIVE NEGATIVE Urine Nitrate NEGATIVE NEGATIVE Urine Bilirubin NEGATIVE NEGATIVE mg/dL Urine Urobilinogen 0.2 0.2-1.0 mg/dL Urine Leukocyte Esterase NEGATIVE NEGATIVE Shine/uL Urine RBC 0-1 0-1 /HPF Urine WBC 2-5 H 0-1 /HPF Urine Squamous Epithelial Cells RARE 0-2 /HPF Urine Bacteria None None Seen /HPF Urine Opiates Screen NEGATIVE NEGATIVE Urine Barbiturates Screen NEGATIVE NEGATIVE Urine Phencyclidine Screen NEGATIVE NEGATIVE Urine Amphetamines Screen NEGATIVE NEGATIVE Urine Benzodiazepines Screen NEGATIVE NEGATIVE Urine Cocaine Screen NEGATIVE NEGATIVE Urine Marijuana (THC) Screen NEGATIVE NEGATIVE D-Dimer Quantitative (PE/DVT) 248 0-500 ng/mL Troponin I High Sensitivity 578 *H 4-75 ng/L Triglycerides Level 232 H 30-200 mg/dL Cholesterol Level 180 <200 mg/dL LDL Cholesterol 94 0-99 mg/dL HDL Cholesterol 53 29-71 mg/dL Thyroid Stimulating Hormone (TSH) 1.60 0.36-3.74 uIU/mL White Blood Count 6.1 4.8-10.8 K/uL Red Blood Count 5.71 4.50-6.20 MIL/uL Hemoglobin 16.6 14.0-18.0 g/dL Hematocrit 48.9 42-54 % Mean Corpuscular Volume 85.6 79-99 fL Mean Corpuscular Hemoglobin 29.1 27.0-33.0 pg Mean Corpuscular Hemoglobin Concent 33.9 32.0-36.0 g/dL Red Cell Distribution Width 12.9 11.0-15.5 % Platelet Count 156 130-400 K/uL Mean Platelet Volume 10.8 H 7.5-10.5 fL Immature Granulocyte % (Auto) 0.2 0-1 % Neutrophils (%) (Auto) 64.8 40.0-77.0 % Lymphocytes (%) (Auto) 25.7 21.0-51.0 % Monocytes (%) (Auto) 6.9 3.0-13.0 % Eosinophils (%) (Auto) 2.1 0.0-8.0 % Basophils (%) (Auto) 0.3 0.0-5.0 % Neutrophils # (Auto) 3.9 1.8-7.7 K/uL Lymphocytes # (Auto) 1.6 1.0-4.8 K/uL Monocytes # (Auto) 0.4 0.1-1.0 K/uL Eosinophils # (Auto) 0.13 0.00-0.70 K/uL Basophils # (Auto) 0.02 0.00-0.20 K/uL Absolute Immature Granulocyte (auto 0.01 0-1 K/uL Nucleated Red Blood Cells 0.0 0.0-0.19 % Prothrombin Time 10.6 9.6-11.6 SEC Prothromb Time International Ratio 0.98 0.85-1.15 Activated Partial Thromboplast Time 27.1 26.3-35.5 SEC Sodium Level 143 136-145 mmol/L Potassium Level 3.3 L 3.5-5.1 mmol/L Chloride Level 104 101-111 mmol/L Carbon Dioxide Level 31 21-32 mmol/L Blood Urea Nitrogen 8 7-18 mg/dL Creatinine 0.9 0.5-1.3 mg/dL Glomerular Filtration Rate Calc 100 >90 mL/min Random Glucose 106 H 70-105 mg/dL Total Calcium 8.6 8.5-10.1 mg/dL Magnesium Level 1.90 1.80-2.40 mg/dL Total Creatine Kinase 126 21-232 U/L B-Type Natriuretic Peptide 144 H 0-100 pg/mL Current Medications Medications (Trade) Dose Ordered Sig/Chris Route PRN Reason Start Time Stop Time Status Last Admin Dose Admin Acetaminophen (TYLenol 325MG TAB) 650 mg Q4H PRN PO TEMPERATURE GREATER THAN 101.5 02/09/24 14:00 03/10/24 13:59 Aspirin (Aspirin 81mg Chew Tab) 81 mg DAILY PO 02/10/24 09:00 03/11/24 08:59 02/10/24 09:14 81 MG Atorvastatin Calcium (LIPItor 20MG) 20 mg HS PO 02/09/24 21:00 03/10/24 20:59 02/09/24 21:46 20 MG Enoxaparin Sodium (Lovenox 80mg) 80 mg DAILY SQ 02/10/24 09:00 02/09/24 14:53 DC Heparin Sodium (Porcine) (HEParin 5,000 UNIT VIAL) 5,000 unit Q12H SQ 02/09/24 10:00 02/09/24 13:46 DC Labetalol HCl (TRANdate 20MG SYG) 10 mg Q6H PRN IV systolic > 160 02/09/24 15:30 03/10/24 15:29 02/09/24 17:28 10 MG Losartan Potassium (CozAAR 50 mg TAB) 50 mg DAILY PO 02/10/24 09:00 03/11/24 08:59 02/10/24 09:15 50 MG Magnesium Sulfate 50 ml @ 0 mls/hr PROTOCOL PRN IV low mag level 02/09/24 14:00 03/10/24 13:59 Metoprolol Tartrate (loprESSOR) 12.5 mg BID PO 02/10/24 09:00 03/11/24 08:59 02/10/24 09:15 12.5 MG Potassium Chloride 100 ml @ 100 mls/hr AD PRN IV POTASSIUM PROTOCOL 02/09/24 14:00 03/10/24 13:59 Potassium Chloride (K-Dur/Klor-Con 20meq) 20 meq AD PRN PO POTASSIUM PROTOCOL 02/09/24 14:00 03/10/24 13:59 Potassium Chloride (KCl 10% Elixir 20meq/15ml) 20 meq AD PRN PO POTASSIUM PROTOCOL 02/09/24 14:00 03/10/24 13:59 Thiamine HCl (Vitamin B-1) 100 mg DAILY PO 02/10/24 09:00 03/11/24 08:59 02/10/24 09:15 100 MG DIAGNOSTICS / RADIOLOGY: [ ] ASSESSMENT: NSTEMI POA Acute heart failure with diastolic dysfunction EF of 30-35%. POA New onset of cardiomyopathy EF 30-35% POA suspecting type II [place] in the setting of uncontrolled blood pressure POA HTN urgency POA Tachycardia POA Dyspnea with minimal exertion POA ETOH abuse POA hypokalemia POA PLAN: [ ] admit to [facility] consult: Certified Anesthesiologist Assistant Test: Echo to evaluate LV function noted -bolt man scheduled for CCTA lexiscan Cardiology's started low dose metoprolol 12.5 twice a day losartan 50 mg p.o. daily. Continue aspirin and statin therapy [facility] protocol provided counseling social organization professor for community resources. Replace electrolytes as needed per protocol goal is to keep potassium above four and magnesium above 2 PRN: MEDICATIONS Tylenol 650 mg po every 4 hrs for fever Zofran 4 mg IV every 6 hrs for n/v Hydralazine 10 mg IV every 4 hrs systolic pressure > 160 Supportive measures: DVT ppx, GI ppx all questions answered Supervising MD: Dr. Jimenez c/d ATTESTATION BY PHYSICIAN I have seen and examined the patient. I reviewed the documentation, medical decision making, and treatment plan as noted by the mid-level provider above. I agree with the findings and plan of care. DOMO JIMENEZ MD, ELIZABETH NP Feb 10, 2024 10:33
[2024-02-10] MEDS ORDERED: metoPROLOL tartRATE 1 MG/ML 5ML VIAL IV ONE (13:10)
[2024-02-10] MEDS ORDERED: IOHEXOL 350 MG/ML 100ML INFUS..BTL IV ONE (13:13)
[2024-02-10] MEDS ORDERED: NITROGLYCERIN 4.1 GM SPRAY TL ONE (13:14)
--- NOTE | 2024-02-10 15:00 | HMCIMG ---
CT CARDIAC ANGIO W/CONT. CCTA REASON: ELEVATED TROPONIN COMPARISON: None TECHNIQUE: Images are obtained through the heart in the axial plane before and during bolus IV contrast infusion, 100 cc Omnipaque 350. 2-D and 3-D multiplanar reconstruction images were then performed. The injection had to be repeated once due to motion artifact on the first sequence, total contrast volume was 200 cc. FINDINGS: This dictation is for the noncardiac findings only. Cardiac and coronary artery findings are reported separately. Visualized portions of the lungs are clear. There is normal-appearing pulmonary interstitium. There is no hilar or mediastinal lymphadenopathy. Chest wall structures appear unremarkable. IMPRESSION: 1. Unremarkable noncardiac portions of CT cardiac angiography.
--- NOTE | 2024-02-10 15:39 | NUR ---
DCP: HOME Pt is from [place], in the [place] working. Pt states job will last thru Feb and then he will return. Pt rents a room here and has home in [place] with Cally Resendez [phone]. Pt states he is independent, no DME o in home care services. When needed, goes to Day clinic in [place], has no PCP or insurance. Pt eager to return work and will dc to rented room at pa Addendum: 02/10/24 at 1542 by SHANTEL VELARDE SS Amended: Links added.
[2024-02-10 16:50] VITALS: BP 166/92; PULSE 73; RESP 18; TEMP 97.8; O2SAT 97
[2024-02-10] MEDS: PoTASSium chloRIDE 20MEQ ER 20 MEQ ERTAB PO PRN (19:20)
[2024-02-10 20:00] VITALS: BP 178/109; PULSE 74; RESP 16; TEMP 97.8; O2SAT 97
[2024-02-10 23:55] VITALS: BP 183/103; PULSE 66; RESP 16; TEMP 97.8
[2024-02-11] VITALS (7 sets, daily range): BP systolic 142–189; BP diastolic 93–135; PULSE 64–80; RESP 18–20; TEMP 97.5–98.2; O2SAT 98
[2024-02-11] MEDS: hydrALAZine 20MG/ML VIAL IV PRN (00:23)
[2024-02-11 05:19] LABS: BASOPHILS # (AUTO) 0.02 K/uL (0.00-0.20); BASOPHILS % (AUTO) 0.3 % (0.0-5.0); EOSINOPHILS # (AUTO) 0.08 K/uL (0.00-0.70); EOSINOPHILS % (AUTO) 1.1 % (0.0-8.0); HEMATOCRIT 47.1 % (42-54); IMMATURE GRANULOCYTE ABSOLUTE 0.02 K/uL (0-1); LYMPHOCYTES # (AUTO) 1.9 K/uL (1.0-4.8); LYMPHOCYTES % (AUTO) 25.9 % (21.0-51.0); MEAN CORPUSCULAR HEMOGLOBIN 28.9 pg (27.0-33.0); MEAN CORPUSCULAR HGB CONC 32.3 g/dL (32.0-36.0); MEAN CORPUSCULAR VOLUME 89.5 fL (79-99); MONOCYTES # (AUTO) 0.6 K/uL (0.1-1.0); MONOCYTES % (AUTO) 7.5 % (3.0-13.0); NEUTROPHILS # (AUTO) 4.9 K/uL (1.8-7.7); NEUTROPHILS % (AUTO) 64.9 % (40.0-77.0); PLATELET COUNT (AUTO) 147 K/uL (130-400); RED BLOOD CELL COUNT(AUTO) 5.26 MIL/uL (4.50-6.20); RED CELL DISTRIBUTION WIDTH 13.2 % (11.0-15.5); WHITE BLOOD COUNT (AUTO) 7.5 K/uL (4.8-10.8)
[2024-02-11 05:29] LABS: MAGNESIUM 2.1 mg/dL (1.80-2.40); POTASSIUM 4.2 mmol/L (3.5-5.1)
--- NOTE | 2024-02-11 07:29 | PN ---
[facility] CARDIOLOGY PROGRESS NOTE Date Patient Seen: Feb 11, 2024 Time of Visit: 07:27 Problem List: Hypertension Elevated troponin Interval History: Pending CCTA results Physical Examination: GENERAL: [No acute distress.] HEAD: [Normal with no signs of head trauma.] NECK: [Normal carotid upstrokes without bruits.] LUNGS: [Clear breath sounds bilaterally. No wheezes, or rhonchi.] HEART: [Normal rate and rhythm. Normal S1 and S2 without murmurs, gallop or rub.] VASC: [Peripheral pulses +2 bilaterally.] ABD: [Bowel sounds normal, soft, nontender] EXT: [No clubbing, cyanosis or edema.] SKIN: [No rashes or lesions noted.] NEURO: [Awake, alert, and oriented x3. No focal sensory or strength deficits noted.] Laboratory: [ ] Hematology Labs: Test 02/11/24 05:13 Range/Units White Blood Count 7.5 4.8-10.8 K/uL Red Blood Count 5.26 4.50-6.20 MIL/uL Hemoglobin 15.2 14.0-18.0 g/dL Hematocrit 47.1 42-54 % Mean Corpuscular Volume 89.5 79-99 fL Mean Corpuscular Hemoglobin 28.9 27.0-33.0 pg Mean Corpuscular Hemoglobin Concent 32.3 32.0-36.0 g/dL Red Cell Distribution Width 13.2 11.0-15.5 % Platelet Count 147 130-400 K/uL Mean Platelet Volume 11.1 H 7.5-10.5 fL Immature Granulocyte % (Auto) 0.3 0-1 % Neutrophils (%) (Auto) 64.9 40.0-77.0 % Lymphocytes (%) (Auto) 25.9 21.0-51.0 % Monocytes (%) (Auto) 7.5 3.0-13.0 % Eosinophils (%) (Auto) 1.1 0.0-8.0 % Basophils (%) (Auto) 0.3 0.0-5.0 % Neutrophils # (Auto) 4.9 1.8-7.7 K/uL Lymphocytes # (Auto) 1.9 1.0-4.8 K/uL Monocytes # (Auto) 0.6 0.1-1.0 K/uL Eosinophils # (Auto) 0.08 0.00-0.70 K/uL Basophils # (Auto) 0.02 0.00-0.20 K/uL Absolute Immature Granulocyte (auto 0.02 0-1 K/uL Nucleated Red Blood Cells 0.0 0.0-0.19 % Chemistry Labs: Test 02/11/24 05:13 02/09/24 15:18 02/09/24 10:11 02/09/24 08:34 Range/Units Sodium Level 146 H 136-145 mmol/L Potassium Level 4.2 3.5-5.1 mmol/L Chloride Level 109 101-111 mmol/L Carbon Dioxide Level 32 21-32 mmol/L Blood Urea Nitrogen 12 7-18 mg/dL Creatinine 1.0 0.5-1.3 mg/dL Glomerular Filtration Rate Calc 88 >90 mL/min Random Glucose 99 70-105 mg/dL Total Calcium 8.9 8.5-10.1 mg/dL Magnesium Level 2.10 1.80-2.40 mg/dL Troponin I High Sensitivity 578 *H 4-75 ng/L Triglycerides Level 232 H 30-200 mg/dL Cholesterol Level 180 <200 mg/dL LDL Cholesterol 94 0-99 mg/dL HDL Cholesterol 53 29-71 mg/dL Thyroid Stimulating Hormone (TSH) 1.60 0.36-3.74 uIU/mL Total Creatine Kinase 126 21-232 U/L B-Type Natriuretic Peptide 144 H 0-100 pg/mL Coagulation Labs: Test 02/09/24 15:18 02/09/24 08:34 Range/Units D-Dimer Quantitative (PE/DVT) 248 0-500 ng/mL Prothrombin Time 10.6 9.6-11.6 SEC Prothromb Time International Ratio 0.98 0.85-1.15 Activated Partial Thromboplast Time 27.1 26.3-35.5 SEC Impression and Plan: Elevated troponin Hypertensive emergency New onset cardiomyopathy with LVEF 30-35% Heavy ETOH use Diastolic dysfunction Continue aspirin, statin Continue terrell/arb, with transition to ARNI as outpatient Continue beta michelle, transition to extended release upon discharge Pending CCTA results Hypertension continues to be uncontrolled. Add spironolactone as part of HFREF GDMT, for improved control of BP, in setting of hypokalemia Due to LVEF <35%, will arrange for LifeVest upon discharge. SHERLY MAXWELL 14, 2024 07:29
[2024-02-11] MEDS ORDERED: ASPI-1005 PO (08:17)
[2024-02-11] MEDS ORDERED: ATOR20TA65 PO (08:17)
[2024-02-11] MEDS ORDERED: THIA100T91 PO (08:17)
[2024-02-11] MEDS ORDERED: LOSA-418 PO (08:17)
[2024-02-11] MEDS ORDERED: SPIR25TA6 PO (08:17)
[2024-02-11] MEDS ORDERED: METO25 PO (08:17)
--- NOTE | 2024-02-11 08:23 | PN ---
[facility] PROGRESS NOTE Date of Service: Feb 11, 2024 Time of Service: 08:20 SUBJECTIVE: [ ] This is a 54-year-old male that presents in ER with concerns of shortness a breath. Onset one week, however today was different shortness of breast duration was longer. He reports he only happens in the morning when he is getting dressed to go to work. Patient also reports edema to lower extremity occasionally over the past week. Associated symptoms racing of the heart. Denied chest pain,or dizziness Patient denies smoking but does report drinks alcohol on a daily basis eight beers daily. Patient has significant medical history hypertension hyperlipidemia however noncompliance with medication treatment. 02/10/2024 patient is seen and examined in ER holding [address] Jimenez patient was seen by shadowgraph operator's appreciate their input. Echo new onset of cardiomyopathy with LV EF of 30-35% diastolic dysfunction. Scheduled CCTA with Lexiscan. Patient denies no chest pain or shortness a breath. We will follow- up on Lexiscan results. 02/11/24 patient is seen and examined with Dr. Jimenez room 321. Review shadowgraph operator's note in detail patient will need LifeVest upon discharge given to EF of 35%. Blood pressure medication being adjusted shadowgraph operator's added sp ironolactone this morning blood pressure 182/117 overnight patient was given hydralazine. This morning blood pressure 142/93. The patient complained of abd discomfort, having bowel movement will get CT abd/pelvis now will follow up results. REVIEW OF SYSTEMS CONSTITUTIONAL: Denies fevers, chills, or night sweats. No unintentional weight loss reported. NEUROLOGICAL: Denies headache, amaurosis fugax, motor weakness, sensory deficit, vertigo/spinning sensation, gait abnormalities, or tremors. ENT: No hearing loss, otalgia, otorrhea, rhinitis, rhinorrhea, hoarseness, or sore throat. CARDIOVASCULAR: Denies any exertional angina, dyspnea on exertion, orthopnea, paroxysmal nocturnal dyspnea, palpitations, life-threatening arrhythmias, claudication. PULMONARY: Denies any shortness of breath, cough, phlegm/sputum, hemoptysis, pleuritic chest pain. SLEEP: Denies morning headaches, daytime somnolence or napping. Denies difficulty falling asleep, staying asleep, waking from sleep. Denies knowledge of snoring. GASTROINTESTINAL: Denies any type of dysphagia to either liquids or solids. Denies nausea, vomiting, pyrosis, early satiety, abdominal pain, diarrhea, constipation, or changes in stool consistency or caliber. Denies coffee-ground emesis, hematemesis, hematochezia, or melanotic stools. GENITOURINARY: Denies frequency, urgency, nocturia, hematuria or incontinence (Storage/Irritative symptoms.) Low urinary stream, straining to void, urinary intermittency or hesitancy, splitting of the voiding stream, terminal dribbling. ENDOCRINOLOGIC: Denies polyuria, polydipsia, polyphagia or heat/cold intolerances. HEMATOLOGIC: Denies thrombophilia/previous clots, or coagulopathy/bleeding disorders. ONCOLOGIC: Denies personal history of malignancy. DERMATOLOGIC: Denies rashes or pruritus. PSYCHIATRIC: Denies any suicidal or homicidal ideation. Denies hallucinations. PHYSICAL EXAM GENERAL APPEARANCE: The patient is awake, alert, and oriented, in no acute cardiopulmonary distress. NEUROLOGICAL: Cranial nerves II-XII grossly intact. Motor is 5/5 in bilateral upper and lower extremities proximal to distal. No sensory deficits. HEENT: Face is symmetric. Pupils are equal and reactive. Extraocular movements are intact. NECK: Supple. No JVD. No thyromegaly. No submental, submandibular, pre- /postauricular, occipital or supraclavicular lymphadenopathy. CHEST: Normal chest expansion. No Telemetry. LUNGS: Absence of any rales, rhonchi or any wheezing. CARDIOVASCULAR: Regular. S1 and S2 normal. No appreciable rubs, murmurs or gallops. ABDOMEN: Soft, nontender, and nondistended. There is no rebound, voluntary guarding, or rigidity. : Deferred. No Keller. EXTREMITIES: Non-edematous and not cyanotic. No clubbing. Good capillary refill. SKIN: No skin breakdown. Vital Signs (last 8hr) Date Time Temp Pulse Resp B/P (MAP) Pulse Ox O2 Delivery O2 Flow Rate FiO2 02/11/24 04:14 72 142/93 02/11/24 03:33 98.1 75 20 182/117 98 Room Air 02/11/24 03:14 182/117 LABS: Laboratory: Test 02/11/24 05:13 02/10/24 09:27 02/09/24 15:18 02/09/24 10:11 Range/Units White Blood Count 7.5 4.8-10.8 K/uL Red Blood Count 5.26 4.50-6.20 MIL/uL Hemoglobin 15.2 14.0-18.0 g/dL Hematocrit 47.1 42-54 % Mean Corpuscular Volume 89.5 79-99 fL Mean Corpuscular Hemoglobin 28.9 27.0-33.0 pg Mean Corpuscular Hemoglobin Concent 32.3 32.0-36.0 g/dL Red Cell Distribution Width 13.2 11.0-15.5 % Platelet Count 147 130-400 K/uL Mean Platelet Volume 11.1 H 7.5-10.5 fL Immature Granulocyte % (Auto) 0.3 0-1 % Neutrophils (%) (Auto) 64.9 40.0-77.0 % Lymphocytes (%) (Auto) 25.9 21.0-51.0 % Monocytes (%) (Auto) 7.5 3.0-13.0 % Eosinophils (%) (Auto) 1.1 0.0-8.0 % Basophils (%) (Auto) 0.3 0.0-5.0 % Neutrophils # (Auto) 4.9 1.8-7.7 K/uL Lymphocytes # (Auto) 1.9 1.0-4.8 K/uL Monocytes # (Auto) 0.6 0.1-1.0 K/uL Eosinophils # (Auto) 0.08 0.00-0.70 K/uL Basophils # (Auto) 0.02 0.00-0.20 K/uL Absolute Immature Granulocyte (auto 0.02 0-1 K/uL Nucleated Red Blood Cells 0.0 0.0-0.19 % Sodium Level 146 H 136-145 mmol/L Potassium Level 4.2 3.5-5.1 mmol/L Chloride Level 109 101-111 mmol/L Carbon Dioxide Level 32 21-32 mmol/L Blood Urea Nitrogen 12 7-18 mg/dL Creatinine 1.0 0.5-1.3 mg/dL Glomerular Filtration Rate Calc 88 >90 mL/min Random Glucose 99 70-105 mg/dL Total Calcium 8.9 8.5-10.1 mg/dL Magnesium Level 2.10 1.80-2.40 mg/dL Urine Color YELLOW YELLOW Urine Appearance CLEAR CLEAR Urine pH 5.5 5.0-8.0 Urine Specific [place]actus 1.027 1.001-1.031 Urine Protein 20 H NEGATIVE mg/dL Urine Glucose (UA) NEGATIVE NEGATIVE mg/dL Urine Ketones NEGATIVE NEGATIVE mg/dL Urine Occult Blood NEGATIVE NEGATIVE Urine Nitrate NEGATIVE NEGATIVE Urine Bilirubin NEGATIVE NEGATIVE mg/dL Urine Urobilinogen 0.2 0.2-1.0 mg/dL Urine Leukocyte Esterase NEGATIVE NEGATIVE Shine/uL Urine RBC 0-1 0-1 /HPF Urine WBC 2-5 H 0-1 /HPF Urine Squamous Epithelial Cells RARE 0-2 /HPF Urine Bacteria None None Seen /HPF Urine Opiates Screen NEGATIVE NEGATIVE Urine Barbiturates Screen NEGATIVE NEGATIVE Urine Phencyclidine Screen NEGATIVE NEGATIVE Urine Amphetamines Screen NEGATIVE NEGATIVE Urine Benzodiazepines Screen NEGATIVE NEGATIVE Urine Cocaine Screen NEGATIVE NEGATIVE Urine Marijuana (THC) Screen NEGATIVE NEGATIVE D-Dimer Quantitative (PE/DVT) 248 0-500 ng/mL Troponin I High Sensitivity 578 *H 4-75 ng/L Triglycerides Level 232 H 30-200 mg/dL Cholesterol Level 180 <200 mg/dL LDL Cholesterol 94 0-99 mg/dL HDL Cholesterol 53 29-71 mg/dL Thyroid Stimulating Hormone (TSH) 1.60 0.36-3.74 uIU/mL Test 02/09/24 08:34 Range/Units Prothrombin Time 10.6 9.6-11.6 SEC Prothromb Time International Ratio 0.98 0.85-1.15 Activated Partial Thromboplast Time 27.1 26.3-35.5 SEC Total Creatine Kinase 126 21-232 U/L B-Type Natriuretic Peptide 144 H 0-100 pg/mL Current Medications Medications (Trade) Dose Ordered Sig/Chris Route PRN Reason Start Time Stop Time Status Last Admin Dose Admin Acetaminophen (TYLenol 325MG TAB) 650 mg Q4H PRN PO TEMPERATURE GREATER THAN 101.5 02/09/24 14:00 03/10/24 13:59 Aspirin (Aspirin 81mg Chew Tab) 81 mg DAILY PO 02/10/24 09:00 03/11/24 08:59 02/10/24 09:14 81 MG Atorvastatin Calcium (LIPItor 20MG) 20 mg HS PO 02/09/24 21:00 03/10/24 20:59 02/10/24 21:07 20 MG Enoxaparin Sodium (Lovenox 80mg) 80 mg DAILY SQ 02/10/24 09:00 02/09/24 14:53 DC Heparin Sodium (Porcine) (HEParin 5,000 UNIT VIAL) 5,000 unit Q12H SQ 02/09/24 10:00 02/09/24 13:46 DC Hydralazine HCl (APRESOLine 20MG INJ) 10 mg Q6H PRN IV ADMINISTER FOR SBP > 160 02/11/24 00:30 03/12/24 00:29 02/11/24 00:23 10 MG Labetalol HCl (TRANdate 20MG SYG) 10 mg Q6H PRN IV systolic > 160 02/09/24 15:30 03/10/24 15:29 02/11/24 03:14 10 MG Losartan Potassium (CozAAR 50 mg TAB) 50 mg DAILY PO 02/10/24 09:00 03/11/24 08:59 02/10/24 09:15 50 MG Magnesium Sulfate 50 ml @ 0 mls/hr PROTOCOL PRN IV low mag level 02/09/24 14:00 03/10/24 13:59 Metoprolol Tartrate (loprESSOR) 12.5 mg BID PO 02/10/24 09:00 03/11/24 08:59 02/10/24 21:07 12.5 MG Potassium Chloride 100 ml @ 100 mls/hr AD PRN IV POTASSIUM PROTOCOL 02/09/24 14:00 03/10/24 13:59 Potassium Chloride (K-Dur/Klor-Con 20meq) 20 meq AD PRN PO POTASSIUM PROTOCOL 02/09/24 14:00 03/10/24 13:59 02/11/24 01:28 20 MEQ Potassium Chloride (KCl 10% Elixir 20meq/15ml) 20 meq AD PRN PO POTASSIUM PROTOCOL 02/09/24 14:00 03/10/24 13:59 Spironolactone (Aldactone 25mg) 25 mg DAILY PO 02/11/24 09:00 03/12/24 08:59 Thiamine HCl (Vitamin B-1) 100 mg DAILY PO 02/10/24 09:00 03/11/24 08:59 02/10/24 09:15 100 MG DIAGNOSTICS / RADIOLOGY: [ ] ASSESSMENT: NSTEMI POA Acute heart failure with diastolic dysfunction EF of 30-35%. POA New onset of cardiomyopathy EF 30-35% POA suspecting type II NM in the setting of uncontrolled blood pressure POA HTN urgency POA Tachycardia POA Dyspnea with minimal exertion POA ETOH abuse POA hypokalemia POA abd pain PLAN: [ ] admit to PCCU with telemetry monitoring consult: [employer] LifeVest upon discharge -shadowgraph operator scheduled for CCTA lexiscan noted Cardiology's started low dose metoprolol 12.5 twice a day losartan 50 mg p.o. daily. Spironolactone was added for control of BP Continue aspirin and statin therapy CT abd/pelvis wo contrast CIWA protocol provided counseling community mental health social worker for community resources. Replace electrolytes as needed per protocol goal is to keep potassium above four and magnesium above 2 PRN: MEDICATIONS Tylenol 650 mg po every 4 hrs for fever Zofran 4 mg IV every 6 hrs for n/v Hydralazine 10 mg IV every 4 hrs systolic pressure > 160 Supportive measures: DVT ppx, GI ppx all questions answered Case management life vest Supervising MD: Dr. Jimenez c/d ATTESTATION BY PHYSICIAN I have seen and examined the patient. I reviewed the documentation, medical decision making, and treatment plan as noted by the mid-level provider above. I agree with the findings and plan of care. DOMO JIMENEZ MD, ELIZABETH NP Feb 11, 2024 08:23
[2024-02-11] MEDS: SPIRONOLACTONE 25 MG TAB PO SCH (09:22)
--- NOTE | 2024-02-11 15:19 | NUR ---
Discharge Planning: Contact number is for patient's daughter at . Pending Dr. Crowe to fill out Medical Order Form. Flagged and placed in front of chart. Nurse Kacy made aware. Spoke to Kari at [facility]. States to fax face sheet and clinicals to get account started. States will f/u tomorow with CM to continue referral. Will e-mail pre-filled Patient Assistance Program Application to be filled out and faxed back. (Pt. is non-funded)
--- NOTE | 2024-02-11 15:44 | HMCIMG ---
CT ABDOMEN/PELVIS W/O CONTRAST REASON: abd pain COMPARISON: None. FINDINGS: Lung bases are clear. There are no focal liver lesions. There are normal-appearing kidneys.. Spleen and pancreas appear unremarkable. The gallbladder appears normal as well. Bowel loops appear unremarkable. This includes normal appearance of the appendix There is no evidence of free fluid or intraperitoneal air. There are no focal fluid collections. Aorta and retroperitoneum appear normal as do pelvic soft tissue structures. There is a minimal periumbilical ventral hernia containing only mesenteric fat. Osseous structures appear unremarkable. IMPRESSION: 1. No acute finding on noncontrast CT abdomen and pelvis. 2. Minimal pedicle ventral hernia containing only mesenteric fat. CT was performed with one or more following dose reduction techniques: automated exposure control, adjustment of the mA and kv according to patient's size, or use of a iterative reconstruction technique.
[2024-02-11] MEDS: hydrALAZine 25MG TABLET PO SCH (16:59)
--- NOTE | 2024-02-11 18:00 | NUR ---
PATIENT ALERT, ORIENTED IN PERSON, TIME AND PLACE. NO SIGNS OF RESPIRATORY DISTRESS. BOWEL SOUNDS PRESENT IN ALL FOUR ABDOMINAL QUADRANTS. DORSALIS PEDIS PULSE PRESENT AND STRONG IN ALL FOUR ABDOMINAL QUADRANTS. PATIENT VERBALIZED NOT FEELING CHEST PAIN OR ANY DISCOMFORT THROUGHOUT HE DAY. NOTIFY [facility] NURSE PRACTITIONER AND DR. MAXWELL ABOUT PATIENTS ELEVATED BLOOD PRESSURE THROUGHOUT THE DAY. (SEE DOCTORS ORDERS) DISCUSSED PLAN OF CARE, PAIN MANAGEMENT. PATIENT VERBALIZED UNDERSTANDING.
[2024-02-11] MEDS: metoPROLOL tartRATE 25 MG TAB PO SCH (21:57)
[2024-02-12] VITALS (9 sets, daily range): BP systolic 150–185; BP diastolic 96–117; PULSE 56–76; RESP 16–20; TEMP 97.5–98.9; O2SAT 98
[2024-02-12 05:41] LABS: BASOPHILS # (AUTO) 0.02 K/uL (0.00-0.20); BASOPHILS % (AUTO) 0.3 % (0.0-5.0); EOSINOPHILS # (AUTO) 0.11 K/uL (0.00-0.70); EOSINOPHILS % (AUTO) 1.4 % (0.0-8.0); HEMATOCRIT 52.9 % (42-54); IMMATURE GRANULOCYTE ABSOLUTE 0.02 K/uL (0-1); LYMPHOCYTES # (AUTO) 2.5 K/uL (1.0-4.8); LYMPHOCYTES % (AUTO) 30.8 % (21.0-51.0); MEAN CORPUSCULAR HEMOGLOBIN 29.7 pg (27.0-33.0); MEAN CORPUSCULAR HGB CONC 32.5 g/dL (32.0-36.0); MEAN CORPUSCULAR VOLUME 91.4 fL (79-99); MONOCYTES # (AUTO) 0.5 K/uL (0.1-1.0); MONOCYTES % (AUTO) 6.8 % (3.0-13.0); NEUTROPHILS # (AUTO) 4.9 K/uL (1.8-7.7); NEUTROPHILS % (AUTO) 60.4 % (40.0-77.0); PLATELET COUNT (AUTO) 151 K/uL (130-400); RED BLOOD CELL COUNT(AUTO) 5.79 MIL/uL (4.50-6.20); RED CELL DISTRIBUTION WIDTH 13.3 % (11.0-15.5)
[2024-02-12 06:14] LABS: B-TYPE NATRIURETIC PEPTIDE 442 pg/mL (0-100)
[2024-02-12 06:20] LABS: ALBUMIN 3.7 g/dL (3.5-5.0); MAGNESIUM 2.1 mg/dL (1.80-2.40); POTASSIUM 3.9 mmol/L (3.5-5.1); TOTAL PROTEIN, SERUM 7.7 g/dL (6.0-8.3)
--- NOTE | 2024-02-12 07:36 | PN ---
[facility] CARDIOLOGY PROGRESS NOTE Date Patient Seen: Feb 12, 2024 Time of Visit: 07:34 Problem List: Hypertension Elevated troponin Interval History: Pending CCTA results Blood pressures continue to be uncontrolled. Patient reports feeling unwell at IV antihypertensive hydralazine administration again this AM. Physical Examination: GENERAL: [No acute distress.] HEAD: [Normal with no signs of head trauma.] NECK: [Normal carotid upstrokes without bruits.] LUNGS: [Clear breath sounds bilaterally. No wheezes, or rhonchi.] HEART: [Normal rate and rhythm. Normal S1 and S2 without murmurs, gallop or rub.] VASC: [Peripheral pulses +2 bilaterally.] ABD: [Bowel sounds normal, soft, nontender] EXT: [No clubbing, cyanosis or edema.] SKIN: [No rashes or lesions noted.] NEURO: [Awake, alert, and oriented x3. No focal sensory or strength deficits noted.] Laboratory: [ ] Hematology Labs: Test 02/12/24 04:59 Range/Units White Blood Count 8.0 4.8-10.8 K/uL Red Blood Count 5.79 4.50-6.20 MIL/uL Hemoglobin 17.2 14.0-18.0 g/dL Hematocrit 52.9 42-54 % Mean Corpuscular Volume 91.4 79-99 fL Mean Corpuscular Hemoglobin 29.7 27.0-33.0 pg Mean Corpuscular Hemoglobin Concent 32.5 32.0-36.0 g/dL Red Cell Distribution Width 13.3 11.0-15.5 % Platelet Count 151 130-400 K/uL Mean Platelet Volume 11.7 H 7.5-10.5 fL Immature Granulocyte % (Auto) 0.3 0-1 % Neutrophils (%) (Auto) 60.4 40.0-77.0 % Lymphocytes (%) (Auto) 30.8 21.0-51.0 % Monocytes (%) (Auto) 6.8 3.0-13.0 % Eosinophils (%) (Auto) 1.4 0.0-8.0 % Basophils (%) (Auto) 0.3 0.0-5.0 % Neutrophils # (Auto) 4.9 1.8-7.7 K/uL Lymphocytes # (Auto) 2.5 1.0-4.8 K/uL Monocytes # (Auto) 0.5 0.1-1.0 K/uL Eosinophils # (Auto) 0.11 0.00-0.70 K/uL Basophils # (Auto) 0.02 0.00-0.20 K/uL Absolute Immature Granulocyte (auto 0.02 0-1 K/uL Nucleated Red Blood Cells 0.0 0.0-0.19 % Chemistry Labs: Test 02/12/24 04:59 Range/Units Sodium Level 143 136-145 mmol/L Potassium Level 3.9 3.5-5.1 mmol/L Chloride Level 107 101-111 mmol/L Carbon Dioxide Level 26 21-32 mmol/L Blood Urea Nitrogen 13 7-18 mg/dL Creatinine 1.0 0.5-1.3 mg/dL Glomerular Filtration Rate Calc 88 >90 mL/min Random Glucose 96 70-105 mg/dL Total Calcium 9.2 8.5-10.1 mg/dL Magnesium Level 2.10 1.80-2.40 mg/dL Total Bilirubin 1.0 0.2-1.0 mg/dL Aspartate Amino Transf (AST/SGOT) 25 10-37 U/L Alanine Aminotransferase (ALT/SGPT) 34 12-78 U/L Alkaline Phosphatase 110 50-136 U/L B-Type Natriuretic Peptide 442 H 0-100 pg/mL Total Protein 7.7 6.0-8.3 g/dL Albumin 3.7 3.5-5.0 g/dL Impression and Plan: Elevated troponin Hypertensive emergency. Hypertension continues to be uncontrolled. New onset cardiomyopathy with LVEF 30-35% Heavy ETOH use Diastolic dysfunction Continue aspirin, statin Continue spironolactone. Discontinue losartan. Start Entresto 49-51 BID and uptitrate as tolerated. Increased beta michelle. Appears to be maximally tolerated due to HRs into the 50s. Will transition to once daily extended release for ease of use. Monitor for continued reaction (flushed, tachycardia) to hydralazine, with discontinuation if observed. Due to LVEF <35%, LifeVest upon discharge. Order signed 02/11/24. Pending CCTA results. If no significant coronary artery disease, blood pressure controlled with BP <150 mmHg, and LifeVest received, patient cleared for discharge. SHERLY MAXWELL DO Feb 12, 2024 07:36
[2024-02-12] MEDS: SACUBITRIL/VALSARTAN 1 EACH TABLET PO SCH (08:55)
[2024-02-12] MEDS: metOPROLol sucCINATE 50 MG TAB.SR.24H PO SCH (08:55)
--- NOTE | 2024-02-12 11:39 | PN ---
[facility] PROGRESS NOTE Date of Service: Feb 12, 2024 Time of Service: 11:32 SUBJECTIVE: [ ] This is a 54-year-old male that presents in ER with concerns of shortness a breath. Onset one week, however today was different shortness of breast duration was longer. He reports he only happens in the morning when he is getting dressed to go to work. Patient also reports edema to lower extremity occasionally over the past week. Associated symptoms racing of the heart. Denied chest pain,or dizziness Patient denies smoking but does report drinks alcohol on a daily basis eight beers daily. Patient has significant medical history hypertension hyperlipidemia however noncompliance with medication treatment. 02/10/2024 patient is seen and examined in ER holding [address] Jimenez patient was seen by java software developer's appreciate their input. Echo new onset of cardiomyopathy with LV EF of 30-35% diastolic dysfunction. Scheduled CCTA with Lexiscan. Patient denies no chest pain or shortness a breath. We will follow- up on Lexiscan results. 02/11/24 patient is seen and examined with Dr. Jimenez room 321. Review java software developer's note in detail patient will need LifeVest upon discharge given to EF of 35%. Blood pressure medication being adjusted java software developer's added sp ironolactone this morning blood pressure 182/117 overnight patient was given hydralazine. This morning blood pressure 142/93. The patient complained of abd discomfort, having bowel movement will get CT abd/pelvis now will follow up results. 02/12/24: patient seen and examined . Patient continues uncontrolled blood pressure java software developer's adjusted now patient is on Toprol-XL 50 p.o. daily Norvasc5 mg p.o. b.i.d. harm losartan 50 mg p.o. b.i.d. we will start hydralazine given to patient became flushed. Patient is pending LifeVest no chest pain events overnight. REVIEW OF SYSTEMS CONSTITUTIONAL: Denies fevers, chills, or night sweats. No unintentional weight loss reported. NEUROLOGICAL: Denies headache, amaurosis fugax, motor weakness, sensory deficit, vertigo/spinning sensation, gait abnormalities, or tremors. ENT: No hearing loss, otalgia, otorrhea, rhinitis, rhinorrhea, hoarseness, or sore throat. CARDIOVASCULAR: Denies any exertional angina, dyspnea on exertion, orthopnea, paroxysmal nocturnal dyspnea, palpitations, life-threatening arrhythmias, claudication. PULMONARY: Denies any shortness of breath, cough, phlegm/sputum, hemoptysis, pleuritic chest pain. SLEEP: Denies morning headaches, daytime somnolence or napping. Denies difficulty falling asleep, staying asleep, waking from sleep. Denies knowledge of snoring. GASTROINTESTINAL: Denies any type of dysphagia to either liquids or solids. Denies nausea, vomiting, pyrosis, early satiety, abdominal pain, diarrhea, constipation, or changes in stool consistency or caliber. Denies coffee-ground emesis, hematemesis, hematochezia, or melanotic stools. GENITOURINARY: Denies frequency, urgency, nocturia, hematuria or incontinence (Storage/Irritative symptoms.) Low urinary stream, straining to void, urinary intermittency or hesitancy, splitting of the voiding stream, terminal dribbling. ENDOCRINOLOGIC: Denies polyuria, polydipsia, polyphagia or heat/cold intolerances. HEMATOLOGIC: Denies thrombophilia/previous clots, or coagulopathy/bleeding disorders. ONCOLOGIC: Denies personal history of malignancy. DERMATOLOGIC: Denies rashes or pruritus. PSYCHIATRIC: Denies any suicidal or homicidal ideation. Denies hallucinations. PHYSICAL EXAM GENERAL APPEARANCE: The patient is awake, alert, and oriented, in no acute cardiopulmonary distress. NEUROLOGICAL: Cranial nerves II-XII grossly intact. Motor is 5/5 in bilateral upper and lower extremities proximal to distal. No sensory deficits. HEENT: Face is symmetric. Pupils are equal and reactive. Extraocular movements are intact. NECK: Supple. No JVD. No thyromegaly. No submental, submandibular, pre- /postauricular, occipital or supraclavicular lymphadenopathy. CHEST: Normal chest expansion. No Telemetry. LUNGS: Absence of any rales, rhonchi or any wheezing. CARDIOVASCULAR: Regular. S1 and S2 normal. No appreciable rubs, murmurs or gallops. ABDOMEN: Soft, nontender, and nondistended. There is no rebound, voluntary guarding, or rigidity. : Deferred. No Keller. EXTREMITIES: Non-edematous and not cyanotic. No clubbing. Good capillary refill. SKIN: No skin breakdown. Vital Signs (last 8hr) Date Time Temp Pulse Resp B/P (MAP) Pulse Ox O2 Delivery O2 Flow Rate FiO2 02/12/24 08:00 98.1 76 18 150/96 98 Room Air 02/12/24 04:00 99.0 56 20 172/112 98 Room Air LABS: Laboratory: Test 02/12/24 04:59 Range/Units White Blood Count 8.0 4.8-10.8 K/uL Red Blood Count 5.79 4.50-6.20 MIL/uL Hemoglobin 17.2 14.0-18.0 g/dL Hematocrit 52.9 42-54 % Mean Corpuscular Volume 91.4 79-99 fL Mean Corpuscular Hemoglobin 29.7 27.0-33.0 pg Mean Corpuscular Hemoglobin Concent 32.5 32.0-36.0 g/dL Red Cell Distribution Width 13.3 11.0-15.5 % Platelet Count 151 130-400 K/uL Mean Platelet Volume 11.7 H 7.5-10.5 fL Immature Granulocyte % (Auto) 0.3 0-1 % Neutrophils (%) (Auto) 60.4 40.0-77.0 % Lymphocytes (%) (Auto) 30.8 21.0-51.0 % Monocytes (%) (Auto) 6.8 3.0-13.0 % Eosinophils (%) (Auto) 1.4 0.0-8.0 % Basophils (%) (Auto) 0.3 0.0-5.0 % Neutrophils # (Auto) 4.9 1.8-7.7 K/uL Lymphocytes # (Auto) 2.5 1.0-4.8 K/uL Monocytes # (Auto) 0.5 0.1-1.0 K/uL Eosinophils # (Auto) 0.11 0.00-0.70 K/uL Basophils # (Auto) 0.02 0.00-0.20 K/uL Absolute Immature Granulocyte (auto 0.02 0-1 K/uL Nucleated Red Blood Cells 0.0 0.0-0.19 % Sodium Level 143 136-145 mmol/L Potassium Level 3.9 3.5-5.1 mmol/L Chloride Level 107 101-111 mmol/L Carbon Dioxide Level 26 21-32 mmol/L Blood Urea Nitrogen 13 7-18 mg/dL Creatinine 1.0 0.5-1.3 mg/dL Glomerular Filtration Rate Calc 88 >90 mL/min Random Glucose 96 70-105 mg/dL Total Calcium 9.2 8.5-10.1 mg/dL Magnesium Level 2.10 1.80-2.40 mg/dL Total Bilirubin 1.0 0.2-1.0 mg/dL Aspartate Amino Transf (AST/SGOT) 25 10-37 U/L Alanine Aminotransferase (ALT/SGPT) 34 12-78 U/L Alkaline Phosphatase 110 50-136 U/L B-Type Natriuretic Peptide 442 H 0-100 pg/mL Total Protein 7.7 6.0-8.3 g/dL Albumin 3.7 3.5-5.0 g/dL Current Medications Medications (Trade) Dose Ordered Sig/Chris Route PRN Reason Start Time Stop Time Status Last Admin Dose Admin Acetaminophen (TYLenol 325MG TAB) 650 mg Q4H PRN PO TEMPERATURE GREATER THAN 101.5 02/09/24 14:00 03/10/24 13:59 Aspirin (Aspirin 81mg Chew Tab) 81 mg DAILY PO 02/10/24 09:00 03/11/24 08:59 02/12/24 08:55 81 MG Atorvastatin Calcium (LIPItor 20MG) 20 mg HS PO 02/09/24 21:00 03/10/24 20:59 02/11/24 21:57 20 MG Enoxaparin Sodium (Lovenox 80mg) 80 mg DAILY SQ 02/10/24 09:00 02/09/24 14:53 DC Heparin Sodium (Porcine) (HEParin 5,000 UNIT VIAL) 5,000 unit Q12H SQ 02/09/24 10:00 02/09/24 13:46 DC Hydralazine HCl (APRESOLine 20MG INJ) 10 mg Q6H PRN IV ADMINISTER FOR SBP > 160 02/11/24 00:30 03/12/24 00:29 02/12/24 04:23 10 MG Hydralazine HCl ([id number] TAB) 25 mg TID PO 02/11/24 16:00 02/12/24 10:44 DC 02/12/24 08:55 25 MG Labetalol HCl (TRANdate 20MG SYG) 10 mg Q6H PRN IV systolic > 160 02/09/24 15:30 03/10/24 15:29 02/11/24 13:07 10 MG Losartan Potassium (CozAAR 50 mg TAB) 50 mg DAILY PO 02/10/24 09:00 02/12/24 07:34 DC 02/11/24 09:22 50 MG Magnesium Sulfate 50 ml @ 0 mls/hr PROTOCOL PRN IV low mag level 02/09/24 14:00 03/10/24 13:59 Metoprolol Succinate (TopROL XL) 50 mg DAILY PO 02/12/24 09:00 03/13/24 08:59 02/12/24 08:55 50 MG Metoprolol Tartrate (loprESSOR) 12.5 mg BID PO 02/10/24 09:00 02/11/24 18:02 DC 02/11/24 09:22 12.5 MG Metoprolol Tartrate (loprESSOR) 25 mg BID PO 02/11/24 21:00 02/12/24 07:38 DC 02/11/24 21:57 25 MG Potassium Chloride 100 ml @ 100 mls/hr AD PRN IV POTASSIUM PROTOCOL 02/09/24 14:00 03/10/24 13:59 Potassium Chloride (K-Dur/Klor-Con 20meq) 20 meq AD PRN PO POTASSIUM PROTOCOL 02/09/24 14:00 03/10/24 13:59 02/11/24 01:28 20 MEQ Potassium Chloride (KCl 10% Elixir 20meq/15ml) 20 meq AD PRN PO POTASSIUM PROTOCOL 02/09/24 14:00 03/10/24 13:59 Sacubitril/ Valsartan (Entresto 49 Mg-51 Mg Tablet) 1 each [id number] PO 02/12/24 09:00 03/13/24 08:59 02/12/24 08:55 1 EACH Spironolactone (Aldactone 25mg) 25 mg DAILY PO 02/11/24 09:00 03/12/24 08:59 02/12/24 08:56 25 MG Thiamine HCl (Vitamin B-1) 100 mg DAILY PO 02/10/24 09:00 03/11/24 08:59 02/12/24 08:56 100 MG DIAGNOSTICS / RADIOLOGY: [ ] ASSESSMENT: NSTEMI POA Acute heart failure with diastolic dysfunction EF of 30-35%. POA New onset of cardiomyopathy EF 30-35% POA suspecting type II [place] in the setting of uncontrolled blood pressure POA HTN urgency POA Tachycardia POA Dyspnea with minimal exertion POA ETOH abuse POA hypokalemia POA abd pain PLAN: [ ] admit to PCCU with telemetry monitoring consult: Machine Filler LifeVest upon discharge case management; order was signed changes made to BP meds: started the patient on toprol xl 50 mg daily losartan 50 mg po bid, Norvasc 5 mg bid. will stop Hydralazine po due to flushing to skin. will cont with Spironolactone, aspirin and statin therapy CT abd/pelvis wo contrast noted CIWA protocol provided counseling social scientist for community resources. Replace electrolytes as needed per protocol goal is to keep potassium above four and magnesium above 2 PRN: MEDICATIONS Tylenol 650 mg po every 4 hrs for fever Zofran 4 mg IV every 6 hrs for n/v Hydralazine 10 mg IV every 4 hrs systolic pressure > 160 Supportive measures: DVT ppx, GI ppx all questions answered Case management life vest in process Supervising MD: Dr. Jimenez c/d ATTESTATION BY PHYSICIAN I have seen and examined the patient. I reviewed the documentation, medical decision making, and treatment plan as noted by the mid-level provider above. I agree with the findings and plan of care. DOMO JIMENEZ MD, ELIZABETH NP Feb 12, 2024 11:39
--- NOTE | 2024-02-12 12:34 | CARDIOLOGY ---
RAD REPORT: [facility] CT ANGIO RADIOLOGY REPORT: CORONARY CT ANGIOGRAPHY DATE: Feb 12, 2024 QUALITY: Excellent CLINICAL HISTORY AND INDICATION: [ HTN ] TECHNIQUE: After obtaining a preliminary rig manager image, contrast imaging performed on an Aquillon [id number] scanner. A dedicated, limited window, coronary imaging protocol was used, with single breath-hold, retrospective ECG gating, and automated arrhythmia rejection. 100 cc of low osmolar contrast agent: Omnipaque 350 was delivered via a 18-gauge IV catheter in the right antecubital fossa, using a power injector and followed by 60 cc of normal saline bolus as a chaser. Collimated images were reformatted at 0.5 mm intervals, and sent to an offline independent workstation for interpretation, using 3D anatomic reconstructions: Curved multiplanar reconstructions, maximum intensity projections, and multiplanar imaging. 10 mg IV metoprolol was administered prior to scanning. 0.8 mg SL nitroglycerin was given. CORONARY ARTERY DESCRIPTIONS: The coronary arteries arise in normal position. Left main coronary artery: Normal caliber vessel that bifurcates into the LAD and LCx. No stenosis. Left anterior descending coronary artery: Normal caliber vessel and gives rise to diagonal and septal branches. Heavily calcified proximal LAD. Left circumflex coronary artery: Normal caliber, nondominant and gives rise to a large OM branch. Heavily calcified proximal to mid LCx. Right coronary artery: Large, dominant vessel giving rise to the PL and PDA branches. No stenosis. Lila Topete MD Cardiovascular Disease [facility] LILA TOPETE MD Feb 12, 2024 12:34
--- NOTE | 2024-02-12 13:00 | NUR ---
cm note referral faxed to [employer]. and spoke to michelle russell at [employer], and states still pending some info from pt, met with pt regarding attempting to get bria life vest. and states that he has been trying to get a w2 or paystub from bank and unable to obtain. will continue to call his work. requested info on priciing. call made to Michelle russell with [email or web address] at [phone] and states did receive clinical, but still pending info on bria assist, informed pt trying to obtaine still. pt requested private pay rates. states private pay rate for pt is $4,350 for life vest rental for one month. and will need a supervisor food checkers and cashiers's check for full amount. updated Tavon AHUJA and states to continue to work with pt and try to get info needed for [employer]. for now.
--- NOTE | 2024-02-12 13:11 | NUR ---
NOTIFY DR MAXWELL OF BP 169/113. ORDERS RECEIVE TO PROCEED WITH PRN LABETALOL
[2024-02-13] VITALS (8 sets, daily range): BP systolic 154–175; BP diastolic 91–131; PULSE 57–68; RESP 17–20; TEMP 97.8–98.2; O2SAT 96–98
--- NOTE | 2024-02-13 09:31 | PN ---
[facility] PROGRESS NOTE Date of Service: Feb 13, 2024 Time of Service: 09:26 SUBJECTIVE: [ ] This is a 54-year-old male that presents in ER with concerns of shortness a breath. Onset one week, however today was different shortness of breast duration was longer. He reports he only happens in the morning when he is getting dressed to go to work. Patient also reports edema to lower extremity occasionally over the past week. Associated symptoms racing of the heart. Denied chest pain,or dizziness Patient denies smoking but does report drinks alcohol on a daily basis eight beers daily. Patient has significant medical history hypertension hyperlipidemia however noncompliance with medication treatment. 02/10/2024 patient is seen and examined in ER holding [address] Hicks patient was seen by die try out worker's appreciate their input. Echo new onset of cardiomyopathy with LV EF of 30-35% diastolic dysfunction. Scheduled CCTA with Lexiscan. Patient denies no chest pain or shortness a breath. We will follow- up on Lexiscan results. 02/11/24 patient is seen and examined with Dr. Hicks room 321. Review die try out worker's note in detail patient will need LifeVest upon discharge given to EF of 35%. Blood pressure medication being adjusted die try out worker's added sp ironolactone this morning blood pressure 182/117 overnight patient was given hydralazine. This morning blood pressure 142/93. The patient complained of abd discomfort, having bowel movement will get CT abd/pelvis now will follow up results. 02/12/24: patient seen and examined . Patient continues uncontrolled blood pressure die try out worker's adjusted now patient is on Toprol-XL 50 p.o. daily Norvasc5 mg p.o. b.i.d. harm losartan 50 mg p.o. b.i.d. we will start hydralazine given to patient became flushed. Patient is pending LifeVest no chest pain events overnight. 02/13/24 patient is seen and examined reviewed chart. Case management to arrange LifeVest in process. Blood pressure continues [id number] we will increase spironolactone to 50 mg daily. We will continue to monitor blood pressure. Patient denied chest pain, shortness a breath. REVIEW OF SYSTEMS CONSTITUTIONAL: Denies fevers, chills, or night sweats. No unintentional weight loss reported. NEUROLOGICAL: Denies headache, amaurosis fugax, motor weakness, sensory deficit, vertigo/spinning sensation, gait abnormalities, or tremors. ENT: No hearing loss, otalgia, otorrhea, rhinitis, rhinorrhea, hoarseness, or sore throat. CARDIOVASCULAR: Denies any exertional angina, dyspnea on exertion, orthopnea, paroxysmal nocturnal dyspnea, palpitations, life-threatening arrhythmias, claudication. PULMONARY: Denies any shortness of breath, cough, phlegm/sputum, hemoptysis, pleuritic chest pain. SLEEP: Denies morning headaches, daytime somnolence or napping. Denies difficulty falling asleep, staying asleep, waking from sleep. Denies knowledge of snoring. GASTROINTESTINAL: Denies any type of dysphagia to either liquids or solids. Denies nausea, vomiting, pyrosis, early satiety, abdominal pain, diarrhea, constipation, or changes in stool consistency or caliber. Denies coffee-ground emesis, hematemesis, hematochezia, or melanotic stools. GENITOURINARY: Denies frequency, urgency, nocturia, hematuria or incontinence (Storage/Irritative symptoms.) Low urinary stream, straining to void, urinary intermittency or hesitancy, splitting of the voiding stream, terminal dribbling. ENDOCRINOLOGIC: Denies polyuria, polydipsia, polyphagia or heat/cold intolerances. HEMATOLOGIC: Denies thrombophilia/previous clots, or coagulopathy/bleeding disorders. ONCOLOGIC: Denies personal history of malignancy. DERMATOLOGIC: Denies rashes or pruritus. PSYCHIATRIC: Denies any suicidal or homicidal ideation. Denies hallucinations. PHYSICAL EXAM GENERAL APPEARANCE: The patient is awake, alert, and oriented, in no acute cardiopulmonary distress. NEUROLOGICAL: Cranial nerves II-XII grossly intact. Motor is 5/5 in bilateral upper and lower extremities proximal to distal. No sensory deficits. HEENT: Face is symmetric. Pupils are equal and reactive. Extraocular movements are intact. NECK: Supple. No JVD. No thyromegaly. No submental, submandibular, pre- /postauricular, occipital or supraclavicular lymphadenopathy. CHEST: Normal chest expansion. No Telemetry. LUNGS: Absence of any rales, rhonchi or any wheezing. CARDIOVASCULAR: Regular. S1 and S2 normal. No appreciable rubs, murmurs or gallops. ABDOMEN: Soft, nontender, and nondistended. There is no rebound, voluntary guarding, or rigidity. : Deferred. No Keller. EXTREMITIES: Non-edematous and not cyanotic. No clubbing. Good capillary refill. SKIN: No skin breakdown. Vital Signs (last 8hr) Date Time Temp Pulse Resp B/P (MAP) Pulse Ox O2 Delivery O2 Flow Rate FiO2 02/13/24 03:53 97.9 57 17 154/91 98 Room Air LABS: Laboratory: Test 02/12/24 04:59 Range/Units White Blood Count 8.0 4.8-10.8 K/uL Red Blood Count 5.79 4.50-6.20 MIL/uL Hemoglobin 17.2 14.0-18.0 g/dL Hematocrit 52.9 42-54 % Mean Corpuscular Volume 91.4 79-99 fL Mean Corpuscular Hemoglobin 29.7 27.0-33.0 pg Mean Corpuscular Hemoglobin Concent 32.5 32.0-36.0 g/dL Red Cell Distribution Width 13.3 11.0-15.5 % Platelet Count 151 130-400 K/uL Mean Platelet Volume 11.7 H 7.5-10.5 fL Immature Granulocyte % (Auto) 0.3 0-1 % Neutrophils (%) (Auto) 60.4 40.0-77.0 % Lymphocytes (%) (Auto) 30.8 21.0-51.0 % Monocytes (%) (Auto) 6.8 3.0-13.0 % Eosinophils (%) (Auto) 1.4 0.0-8.0 % Basophils (%) (Auto) 0.3 0.0-5.0 % Neutrophils # (Auto) 4.9 1.8-7.7 K/uL Lymphocytes # (Auto) 2.5 1.0-4.8 K/uL Monocytes # (Auto) 0.5 0.1-1.0 K/uL Eosinophils # (Auto) 0.11 0.00-0.70 K/uL Basophils # (Auto) 0.02 0.00-0.20 K/uL Absolute Immature Granulocyte (auto 0.02 0-1 K/uL Nucleated Red Blood Cells 0.0 0.0-0.19 % Sodium Level 143 136-145 mmol/L Potassium Level 3.9 3.5-5.1 mmol/L Chloride Level 107 101-111 mmol/L Carbon Dioxide Level 26 21-32 mmol/L Blood Urea Nitrogen 13 7-18 mg/dL Creatinine 1.0 0.5-1.3 mg/dL Glomerular Filtration Rate Calc 88 >90 mL/min Random Glucose 96 70-105 mg/dL Total Calcium 9.2 8.5-10.1 mg/dL Magnesium Level 2.10 1.80-2.40 mg/dL Total Bilirubin 1.0 0.2-1.0 mg/dL Aspartate Amino Transf (AST/SGOT) 25 10-37 U/L Alanine Aminotransferase (ALT/SGPT) 34 12-78 U/L Alkaline Phosphatase 110 50-136 U/L B-Type Natriuretic Peptide 442 H 0-100 pg/mL Total Protein 7.7 6.0-8.3 g/dL Albumin 3.7 3.5-5.0 g/dL Current Medications Medications (Trade) Dose Ordered Sig/Chris Route PRN Reason Start Time Stop Time Status Last Admin Dose Admin Acetaminophen (TYLenol 325MG TAB) 650 mg Q4H PRN PO TEMPERATURE GREATER THAN 101.5 02/09/24 14:00 03/10/24 13:59 Aspirin (Aspirin 81mg Chew Tab) 81 mg DAILY PO 02/10/24 09:00 03/11/24 08:59 02/13/24 08:46 81 MG Atorvastatin Calcium (LIPItor 20MG) 20 mg HS PO 02/09/24 21:00 03/10/24 20:59 02/12/24 20:24 20 MG Enoxaparin Sodium (Lovenox 80mg) 80 mg DAILY SQ 02/10/24 09:00 02/09/24 14:53 DC Heparin Sodium (Porcine) (HEParin 5,000 UNIT VIAL) 5,000 unit Q12H SQ 02/09/24 10:00 02/09/24 13:46 DC Hydralazine HCl (APRESOLine 20MG INJ) 10 mg Q6H PRN IV ADMINISTER FOR SBP > 160 02/11/24 00:30 03/12/24 00:29 02/12/24 04:23 10 MG Hydralazine HCl ([id number] TAB) 25 mg TID PO 02/11/24 16:00 02/12/24 10:44 DC 02/12/24 08:55 25 MG Labetalol HCl (TRANdate 20MG SYG) 10 mg Q6H PRN IV systolic > 160 02/09/24 15:30 03/10/24 15:29 02/12/24 20:26 10 MG Losartan Potassium (CozAAR 50 mg TAB) 50 mg DAILY PO 02/10/24 09:00 02/12/24 07:34 DC 02/11/24 09:22 50 MG Magnesium Sulfate 50 ml @ 0 mls/hr PROTOCOL PRN IV low mag level 02/09/24 14:00 03/10/24 13:59 Metoprolol Succinate (TopROL XL) 50 mg DAILY PO 02/12/24 09:00 03/13/24 08:59 02/13/24 08:46 50 MG Metoprolol Tartrate (loprESSOR) 12.5 mg BID PO 02/10/24 09:00 02/11/24 18:02 DC 02/11/24 09:22 12.5 MG Metoprolol Tartrate (loprESSOR) 25 mg BID PO 02/11/24 21:00 02/12/24 07:38 DC 02/11/24 21:57 25 MG Potassium Chloride 100 ml @ 100 mls/hr AD PRN IV POTASSIUM PROTOCOL 02/09/24 14:00 03/10/24 13:59 Potassium Chloride (K-Dur/Klor-Con 20meq) 20 meq AD PRN PO POTASSIUM PROTOCOL 02/09/24 14:00 03/10/24 13:59 02/11/24 01:28 20 MEQ Potassium Chloride (KCl 10% Elixir 20meq/15ml) 20 meq AD PRN PO POTASSIUM PROTOCOL 02/09/24 14:00 03/10/24 13:59 Sacubitril/ Valsartan (Entresto 49 Mg-51 Mg Tablet) 1 each [id number] PO 02/12/24 09:00 03/13/24 08:59 02/13/24 06:35 1 EACH Spironolactone (Aldactone 25mg) 25 mg DAILY PO 02/11/24 09:00 03/12/24 08:59 02/13/24 08:46 25 MG Thiamine HCl (Vitamin B-1) 100 mg DAILY PO 02/10/24 09:00 03/11/24 08:59 02/13/24 08:46 100 MG DIAGNOSTICS / RADIOLOGY: [ ] ASSESSMENT: NSTEMI POA Acute heart failure with diastolic dysfunction EF of 30-35%. POA New onset of cardiomyopathy EF 30-35% POA suspecting type II [place] in the setting of uncontrolled blood pressure POA HTN urgency POA Tachycardia POA Dyspnea with minimal exertion POA ETOH abuse POA hypokalemia POA abd pain PLAN: [ ] admit to PCCU with telemetry monitoring consult: Recreation Coordinator LifeVest upon discharge case management; order was signed changes made to BP meds: started the patient on toprol xl 50 mg daily losartan 50 mg po bid, Norvasc 5 mg bid. will stop Hydralazine po due to flushing to skin. will cont with [id number] mg po daily we will get an extra dose25 mg we will see if blood pressure improves with extra dose if so we will be on 50 mg daily starting tomorrow aspirin and statin therapy CT abd/pelvis wo contrast noted CIWA protocol provided counseling secondary social studies teacher for community resources. Replace electrolytes as needed per protocol goal is to keep potassium above four and magnesium above 2 PRN: MEDICATIONS Tylenol 650 mg po every 4 hrs for fever Zofran 4 mg IV every 6 hrs for n/v Hydralazine 10 mg IV every 4 hrs systolic pressure > 160 Supportive measures: DVT ppx, GI ppx all questions answered Case management life vest in process Supervising MD: Dr. Hicks c/d ATTESTATION BY PHYSICIAN I have seen and examined the patient. I reviewed the documentation, medical decision making, and treatment plan as noted by the resident provider above. I agree with the findings and plan of care. Abad Sanderson MD, ELIZABETH NP Feb 13, 2024 09:31
--- NOTE | 2024-02-13 09:55 | PN ---
[facility] CARDIOLOGY PROGRESS NOTE Date Patient Seen: Feb 13, 2024 Time of Visit: 09:38 Interval History: This is a 54-year-old Latin-I[place]ian male with a past medical history of hypertension, hyperlipidemia, noncompliance and alcohol abuse admitting to drink ing 12 bottles of 12oz beers daily who presented to the ED with a 1 month history of dyspnea on exertion, with the associated abdominal bloating and subsequent developing orthopnea. He was having difficulties with dyspnea even while showering. His symptoms became worse prompting ER assessment on 02/09/2024. He was noted to have hypertensive emergency with blood pressure of 226/145. He had elevated troponins in the range of 641, 652 and 578. His admission BNP was 144. He has been found to have evidence of cardiomyopathy with an LVEF of 30-35%, stage II diastolic dysfunction and mild concentric LVH on 2D echocardiogram 02/09/2024. In addition, he underwent further assessment with a CT coronary angiogram on 02/12/2024 demonstrating a heavy calcified prox imal LAD and heavy calcified mid left circumflex. He offers no orthopnea or PND. He has been initiated on metoprolol, Entresto, spironolactone, aspirin and statin therapy. His blood pressure remains elevated this morning but his Entresto was just initiated yesterday. 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 HEAD: Normal with no signs of head trauma. EYES: PERRLA, EOMI, conjunctiva and sclera normal. NECK: Supple without JVD. There is no tenderness, lymphadenopathy, or masses. No thyromegaly. Normal carotid upstrokes without bruits. LUNGS: Clear breath sounds bilaterally. No wheezes, or rhonchi. HEART: Normal rate and rhythm. Normal S1 and S2 without murmurs, gallop or rub. VASC: Peripheral pulses +2 bilaterally. EXT: No clubbing, cyanosis or edema. NEURO: Awake, alert, and oriented x3. No focal neurological deficits noted. Laboratory: Hematology Labs: Test 02/12/24 04:59 Range/Units White Blood Count 8.0 4.8-10.8 K/uL Red Blood Count 5.79 4.50-6.20 MIL/uL Hemoglobin 17.2 14.0-18.0 g/dL Hematocrit 52.9 42-54 % Mean Corpuscular Volume 91.4 79-99 fL Mean Corpuscular Hemoglobin 29.7 27.0-33.0 pg Mean Corpuscular Hemoglobin Concent 32.5 32.0-36.0 g/dL Red Cell Distribution Width 13.3 11.0-15.5 % Platelet Count 151 130-400 K/uL Mean Platelet Volume 11.7 H 7.5-10.5 fL Immature Granulocyte % (Auto) 0.3 0-1 % Neutrophils (%) (Auto) 60.4 40.0-77.0 % Lymphocytes (%) (Auto) 30.8 21.0-51.0 % Monocytes (%) (Auto) 6.8 3.0-13.0 % Eosinophils (%) (Auto) 1.4 0.0-8.0 % Basophils (%) (Auto) 0.3 0.0-5.0 % Neutrophils # (Auto) 4.9 1.8-7.7 K/uL Lymphocytes # (Auto) 2.5 1.0-4.8 K/uL Monocytes # (Auto) 0.5 0.1-1.0 K/uL Eosinophils # (Auto) 0.11 0.00-0.70 K/uL Basophils # (Auto) 0.02 0.00-0.20 K/uL Absolute Immature Granulocyte (auto 0.02 0-1 K/uL Nucleated Red Blood Cells 0.0 0.0-0.19 % Chemistry Labs: Test 02/12/24 04:59 Range/Units Sodium Level 143 136-145 mmol/L Potassium Level 3.9 3.5-5.1 mmol/L Chloride Level 107 101-111 mmol/L Carbon Dioxide Level 26 21-32 mmol/L Blood Urea Nitrogen 13 7-18 mg/dL Creatinine 1.0 0.5-1.3 mg/dL Glomerular Filtration Rate Calc 88 >90 mL/min Random Glucose 96 70-105 mg/dL Total Calcium 9.2 8.5-10.1 mg/dL Magnesium Level 2.10 1.80-2.40 mg/dL Total Bilirubin 1.0 0.2-1.0 mg/dL Aspartate Amino Transf (AST/SGOT) 25 10-37 U/L Alanine Aminotransferase (ALT/SGPT) 34 12-78 U/L Alkaline Phosphatase 110 50-136 U/L B-Type Natriuretic Peptide 442 H 0-100 pg/mL Total Protein 7.7 6.0-8.3 g/dL Albumin 3.7 3.5-5.0 g/dL Diagnostics / Radiology: 2D echocardiogram 02/09/2024: Conclusion There is global hypokinesis of the left ventricle. LVEF is 30-35%. Mild concentric left ventricular hypertrophy. Stage II diastolic dysfunction. The left atrium is moderately dilated. Impression and Plan: Hypertensive emergency with admission blood pressure of 226/145 -the patient has been initiated on metoprolol, Entresto and spironolactone -monitor blood pressure response over the next 24 hours (Entresto initiated yesterday) Type II non ST segment elevation [place] in the setting of hypertensive emergency with troponins in a flat pattern of 641, 652 and 578 Probable nonischemic cardiomyopathy with an LVEF of 30-35% by 2D echocardiogram 02/09/2024 Coronary artery disease with heavy calcified proximal LAD and heavy calcified proximal to mid left circumflex on CT coronary angiogram 02/12/2024: -he has been initiated on guideline directed medical therapy with spironolactone, Entresto and metoprolol succinate ER -given his findings on his CT coronary angiogram, may suggest stenosis (possible left main equivalent) in the proximal and proximal to mid left circumflex. I have advised patient proceeding with invasive cardiac assessment with a left heart catheterization on Thursday to define his coronary anatomy. He is willing to continue inpatient hospitalization to undergo further invasive assessment on Thursday -a LifeVest has been requested and this will be readdressed pending further invasive cardiac assessment. -continue aspirin and statin therapy Acute on chronic combined systolic and diastolic congestive heart failure: -admission BNP of 144 rising to 442 on 02/12/2024 -obtain a follow-up chest x-ray today -we will consider addition of furosemide or SGLT2 inhibitor Hyperlipidemia: -a lipid panel on 02/09/2024 demonstrated a total cholesterol of 180, triglycerides 232, HDL 53 and LDL of 94 -continue current atorvastatin therapy, atorvastatin 20 mg p.o. daily Alcohol abuse reporting 12, 12 oz beers daily: -Advised on efforts at cessation of alcohol use Probable sleep apnea: -the patient reports loud snoring and his significant other has reported periods of apnea nocturnally and the patient has had daytime fatigue and somnolence -place patient on pulse oximeter overnight and nursing to report any desaturations nocturnally and periods of apnea PHYSICIAN ATTESTATION OF PHYSICIAN WHITE LEAD FILTERER DOCUMENTATION: I attest that I was physically present for the ansari portions of the service and evaluated the patient with the Physician Aemt, and I reviewed and discussed the case with the Physician Aemt and made modifications to the Physician Aemt's findings and plans of care as documented above FRANCIS FU Feb 13, 2024 09:55 SEAMUS RAYA MD Feb 13, 2024 17:50
[2024-02-13] MEDS: SPIRONOLACTONE 25 MG TAB PO ONE (11:29)
--- NOTE | 2024-02-13 11:29 | HMCIMG ---
PORTABLE CHEST RADIOGRAPH INDICATION: eval CHF COMPARISON: 02/09/2024 FINDINGS: cryptographic center specialist leads overlie the field of view. Heart size is normal. The pulmonary vascularity and imani appear normal. No abnormal pulmonary parenchymal opacity or consolidation identified. No significant pleural effusion noted. No pneumothorax detected. IMPRESSION: No radiographic evidence for any acute cardiopulmonary process.
[2024-02-13] MEDS ORDERED: EMPAGLIFLOZIN 10MG TABLET PO ONE (13:30)
[2024-02-14] VITALS (7 sets, daily range): BP systolic 142–176; BP diastolic 97–113; PULSE 58–70; RESP 17–22; TEMP 97.4–98; O2SAT 96
[2024-02-14] MEDS: SACUBITRIL/VALSARTAN 1 EACH TABLET PO SCH ×2 (09:00→10:18)
--- NOTE | 2024-02-14 09:01 | PN ---
[facility] PROGRESS NOTE Date of Service: Feb 14, 2024 Time of Service: 08:53 SUBJECTIVE: [ ] This is a 54-year-old male that presents in ER with concerns of shortness a breath. Onset one week, however today was different shortness of breast duration was longer. He reports he only happens in the morning when he is getting dressed to go to work. Patient also reports edema to lower extremity occasionally over the past week. Associated symptoms racing of the heart. Denied chest pain,or dizziness Patient denies smoking but does report drinks alcohol on a daily basis eight beers daily. Patient has significant medical history hypertension hyperlipidemia however noncompliance with medication treatment. 02/10/2024 patient is seen and examined in ER holding [address] Hicks patient was seen by environmental coordinator's appreciate their input. Echo new onset of cardiomyopathy with LV EF of 30-35% diastolic dysfunction. Scheduled CCTA with Lexiscan. Patient denies no chest pain or shortness a breath. We will follow- up on Lexiscan results. 02/11/24 patient is seen and examined with Dr. Hicks room 321. Review environmental coordinator's note in detail patient will need LifeVest upon discharge given to EF of 35%. Blood pressure medication being adjusted environmental coordinator's added sp ironolactone this morning blood pressure 182/117 overnight patient was given hydralazine. This morning blood pressure 142/93. The patient complained of abd discomfort, having bowel movement will get CT abd/pelvis now will follow up results. 02/12/24: patient seen and examined . Patient continues uncontrolled blood pressure environmental coordinator's adjusted now patient is on Toprol-XL 50 p.o. daily Norvasc5 mg p.o. b.i.d. harm losartan 50 mg p.o. b.i.d. we will start hydralazine given to patient became flushed. Patient is pending LifeVest no chest pain events overnight. 02/13/24 patient is seen and examined reviewed chart. Case management to arrange LifeVest in process. Blood pressure continues [id number] we will increase spironolactone to 50 mg daily. We will continue to monitor blood pressure. Patient denied chest pain, shortness a breath. 02/14/24 patient is seen and examined with attending reviewed chart, no chest pain events overnight. blood pressure continues systolic above 160. Jardiance was just initiated this morning Entresto dosage was increased per environmental coordinator's patient with dyspnea at rest patient is scheduled for a left heart catheterization in a.m... We will monitor BP. Life vest in process REVIEW OF SYSTEMS CONSTITUTIONAL: Denies fevers, chills, or night sweats. No unintentional weight loss reported. NEUROLOGICAL: Denies headache, amaurosis fugax, motor weakness, sensory deficit, vertigo/spinning sensation, gait abnormalities, or tremors. ENT: No hearing loss, otalgia, otorrhea, rhinitis, rhinorrhea, hoarseness, or sore throat. CARDIOVASCULAR: Denies any exertional angina, dyspnea on exertion, orthopnea, paroxysmal nocturnal dyspnea, palpitations, life-threatening arrhythmias, claudication. PULMONARY: Denies any shortness of breath, cough, phlegm/sputum, hemoptysis, pleuritic chest pain. SLEEP: Denies morning headaches, daytime somnolence or napping. Denies difficulty falling asleep, staying asleep, waking from sleep. Denies knowledge of snoring. GASTROINTESTINAL: Denies any type of dysphagia to either liquids or solids. Denies nausea, vomiting, pyrosis, early satiety, abdominal pain, diarrhea, constipation, or changes in stool consistency or caliber. Denies coffee-ground emesis, hematemesis, hematochezia, or melanotic stools. GENITOURINARY: Denies frequency, urgency, nocturia, hematuria or incontinence (Storage/Irritative symptoms.) Low urinary stream, straining to void, urinary intermittency or hesitancy, splitting of the voiding stream, terminal dribbling. ENDOCRINOLOGIC: Denies polyuria, polydipsia, polyphagia or heat/cold intolerances. HEMATOLOGIC: Denies thrombophilia/previous clots, or coagulopathy/bleeding disorders. ONCOLOGIC: Denies personal history of malignancy. DERMATOLOGIC: Denies rashes or pruritus. PSYCHIATRIC: Denies any suicidal or homicidal ideation. Denies hallucinations. PHYSICAL EXAM GENERAL APPEARANCE: The patient is awake, alert, and oriented, in no acute cardiopulmonary distress. NEUROLOGICAL: Cranial nerves II-XII grossly intact. Motor is 5/5 in bilateral upper and lower extremities proximal to distal. No sensory deficits. HEENT: Face is symmetric. Pupils are equal and reactive. Extraocular movements are intact. NECK: Supple. No JVD. No thyromegaly. No submental, submandibular, pre- /postauricular, occipital or supraclavicular lymphadenopathy. CHEST: Normal chest expansion. No Telemetry. LUNGS: Absence of any rales, rhonchi or any wheezing. CARDIOVASCULAR: Regular. S1 and S2 normal. No appreciable rubs, murmurs or gallops. ABDOMEN: Soft, nontender, and nondistended. There is no rebound, voluntary guarding, or rigidity. : Deferred. No Keller. EXTREMITIES: Non-edematous and not cyanotic. No clubbing. Good capillary refill. SKIN: No skin breakdown. Vital Signs (last 8hr) Date Time Temp Pulse Resp B/P (MAP) Pulse Ox O2 Delivery O2 Flow Rate FiO2 02/14/24 08:01 97.5 59 20 176/113 96 Room Air 02/14/24 03:53 98.1 70 17 160/107 96 Room Air LABS: Laboratory: Test 02/13/24 10:15 Range/Units B-Type Natriuretic Peptide 116 H 0-100 pg/mL Current Medications Medications (Trade) Dose Ordered Sig/Chris Route PRN Reason Start Time Stop Time Status Last Admin Dose Admin Acetaminophen (TYLenol 325MG TAB) 650 mg Q4H PRN PO TEMPERATURE GREATER THAN 101.5 02/09/24 14:00 03/10/24 13:59 Aspirin (Aspirin 81mg Chew Tab) 81 mg DAILY PO 02/10/24 09:00 03/11/24 08:59 02/14/24 08:39 81 MG Atorvastatin Calcium (LIPItor 20MG) 20 mg HS PO 02/09/24 21:00 03/10/24 20:59 02/13/24 20:57 20 MG Empaglifozin (Jardiance 10mg) 10 mg DAILY PO 02/14/24 09:00 03/15/24 08:59 UNV Enoxaparin Sodium (Lovenox 80mg) 80 mg DAILY SQ 02/10/24 09:00 02/09/24 14:53 DC Heparin Sodium (Porcine) (HEParin 5,000 UNIT VIAL) 5,000 unit Q12H SQ 02/09/24 10:00 02/09/24 13:46 DC Hydralazine HCl (APRESOLine 20MG INJ) 10 mg Q6H PRN IV ADMINISTER FOR SBP > 160 02/11/24 00:30 03/12/24 00:29 02/12/24 04:23 10 MG Hydralazine HCl ([id number] TAB) 25 mg TID PO 02/11/24 16:00 02/12/24 10:44 DC 02/12/24 08:55 25 MG Labetalol HCl (TRANdate 20MG SYG) 10 mg Q6H PRN IV systolic > 160 02/09/24 15:30 02/13/24 10:19 DC 02/12/24 20:26 10 MG Losartan Potassium (CozAAR 50 mg TAB) 50 mg DAILY PO 02/10/24 09:00 02/12/24 07:34 DC 02/11/24 09:22 50 MG Magnesium Sulfate 50 ml @ 0 mls/hr PROTOCOL PRN IV low mag level 02/09/24 14:00 03/10/24 13:59 Metoprolol Succinate (TopROL XL) 50 mg DAILY PO 02/12/24 09:00 03/13/24 08:59 02/14/24 08:39 50 MG Metoprolol Tartrate (loprESSOR) 12.5 mg BID PO 02/10/24 09:00 02/11/24 18:02 DC 02/11/24 09:22 12.5 MG Metoprolol Tartrate (loprESSOR) 25 mg BID PO 02/11/24 21:00 02/12/24 07:38 DC 02/11/24 21:57 25 MG Potassium Chloride 100 ml @ 100 mls/hr AD PRN IV POTASSIUM PROTOCOL 02/09/24 14:00 03/10/24 13:59 Potassium Chloride (K-Dur/Klor-Con 20meq) 20 meq AD PRN PO POTASSIUM PROTOCOL 02/09/24 14:00 03/10/24 13:59 02/11/24 01:28 20 MEQ Potassium Chloride (KCl 10% Elixir 20meq/15ml) 20 meq AD PRN PO POTASSIUM PROTOCOL 02/09/24 14:00 03/10/24 13:59 Sacubitril/ Valsartan (Entresto 49 Mg-51 Mg Tablet) 1 each [id number] PO 02/12/24 09:00 02/14/24 08:49 DC 02/14/24 05:54 1 EACH Sacubitril/ Valsartan (Entresto 97 Mg-103 Mg Tablet) 1 each BID PO 02/14/24 09:00 03/15/24 08:59 UNV Spironolactone (Aldactone 25mg) 25 mg DAILY PO 02/11/24 09:00 03/12/24 08:59 02/14/24 08:39 25 MG Thiamine HCl (Vitamin B-1) 100 mg DAILY PO 02/10/24 09:00 03/11/24 08:59 02/14/24 08:39 100 MG DIAGNOSTICS / RADIOLOGY: [ ] ASSESSMENT: NSTEMI POA Acute heart failure with diastolic dysfunction EF of 30-35%. POA New onset of cardiomyopathy EF 30-35% POA suspecting type II [place] in the setting of uncontrolled blood pressure POA HTN urgency POA Tachycardia POA Dyspnea with minimal exertion POA ETOH abuse POA hypokalemia POA abd pain PLAN: [ ] admit to PCCU with telemetry monitoring consult: Upholsterer Apprentice LifeVest upon discharge case management; order was signed Upholsterer Apprentice's schedule patient for left heart catheterization in a.m.. changes made to BP meds: started the patient on toprol xl 50 mg daily losartan 50 mg po bid, Norvasc 5 mg bid. Entresto b.i.d. dosage was increased. Jardiance was started today will cont with [id number] mg po daily aspirin and statin therapy 6 minute walk close to discharge. [facility] protocol provided counseling social service manager for community resources. Replace electrolytes as needed per protocol goal is to keep potassium above four and magnesium above 2 PRN: MEDICATIONS Tylenol 650 mg po every 4 hrs for fever Zofran 4 mg IV every 6 hrs for n/v Hydralazine 10 mg IV every 4 hrs systolic pressure > 160 Supportive measures: DVT ppx, GI ppx all questions answered Case management life vest in process Supervising MD: Dr. Abad Sanderson c/d ATTESTATION BY PHYSICIAN I have seen and examined the patient. I reviewed the documentation, medical dec ision making, and treatment plan as noted by the resident provider above. I agree with the findings and plan of care. Abad Sanderson MD, ELIZABETH NP Feb 14, 2024 09:01
--- NOTE | 2024-02-14 10:03 | PN ---
[facility] CARDIOLOGY PROGRESS NOTE Date Patient Seen: Feb 14, 2024 Time of Visit: 09:59 Interval History: This is a 54-year-old [place] Citizen male with a past medical history of hypertension, hyperlipidemia, noncompliance and alcohol abuse admitting to drink ing 12 bottles of 12oz beers daily who presented to the ED with a 1 month history of dyspnea on exertion, with the associated abdominal bloating and subsequent developing orthopnea. He was having difficulties with dyspnea even while showering. His symptoms became worse prompting ER assessment on 02/09/2024. He was noted to have hypertensive emergency with blood pressure of 226/145. He had elevated troponins in the range of 641, 652 and 578. His admission BNP was 144. He has been found to have evidence of cardiomyopathy with an LVEF of 30-35%, stage II diastolic dysfunction and mild concentric LVH on 2D echocardiogram 02/09/2024. In addition, he underwent further assessment with a CT coronary angiogram on 02/12/2024 demonstrating a heavy calcified prox imal LAD and heavy calcified proximal to mid left circumflex. He has been initiated on guideline directed medical therapy with metoprolol succinate ER, Entresto, spironolactone, antiplatelet therapy and statin therapy. His blood pressure remains elevated today 176/103 There is also suspicion of possible sleep apnea. He were pulse oximeter overnight and nursing reports his O2 sat lowest reading was 90% and the patient was observed snoring at that time. He was awakened and O2 sat edouard into the high 90% range. Physical Examination: GENERAL: No acute distress. HEAD: Normal with no signs of head trauma. EYES: PERRLA, EOMI, conjunctiva and sclera normal. NECK: Supple without JVD. There is no tenderness, lymphadenopathy, or masses. No thyromegaly. Normal carotid upstrokes without bruits. LUNGS: Clear breath sounds bilaterally. No wheezes, or rhonchi. HEART: Normal rate and rhythm. Normal S1 and S2 without murmurs, gallop or rub. VASC: Peripheral pulses +2 bilaterally. EXT: No clubbing, cyanosis or edema. NEURO: Awake, alert, and oriented x3. No focal neurological deficits noted. Laboratory: Chemistry Labs: Test 02/13/24 10:15 Range/Units B-Type Natriuretic Peptide 116 H 0-100 pg/mL Diagnostics / Radiology: 2D echocardiogram 02/09/2024: Conclusion There is global hypokinesis of the left ventricle. LVEF is 30-35%. Mild concentric left ventricular hypertrophy. Stage II diastolic dysfunction. The left atrium is moderately dilated. Impression and Plan: Hypertensive emergency with admission blood pressure of 226/145 -the patient has been initiated on metoprolol, Entresto and spironolactone -blood pressure remains uncontrolled and we will advanced Entresto to 97/103 mg p.o. b.i.d. -add Jardiance 10 mg p.o. daily to his medical regimen -heart rate precludes advancing his metoprolol -consider the addition of amlodipine if needed for added blood pressure control Type II non ST segment elevation [place] in the setting of hypertensive emergency with troponins in a flat pattern of 641, 652 and 578 Probable nonischemic cardiomyopathy with an LVEF of 30-35% by 2D echocardiogram 02/09/2024 Coronary artery disease with heavy calcified proximal LAD and heavy calcified p roximal to mid left circumflex on CT coronary angiogram 02/12/2024: -he has been initiated on guideline directed medical therapy with spironolactone, Entresto and metoprolol succinate ER, add Jardiance 10 mg p.o. today -given his findings on his CT coronary angiogram, may suggest stenosis (possible left main equivalent) in the proximal and proximal to mid left circumflex. He has been advised on proceeding with invasive cardiac assessment with a left heart catheterization in a.m. to define his coronary anatomy. Risks, benefits and alternatives have been discussed included but not limited to 0.1% risk of [place], stroke or and he wishes to proceed -NPO after midnight for left heart catheterization in a.m. -a LifeVest has been requested and this will be readdressed pending further invasive cardiac assessment. -continue aspirin and statin therapy Acute on chronic combined systolic and diastolic congestive heart failure: -admission BNP of 144 rising to 442 on 02/12/2024 and improving to 116 yesterday -continue with plans to add Jardiance 10 mg p.o. daily Hyperlipidemia: -a lipid panel on 02/09/2024 demonstrated a total cholesterol of 180, triglycerides 232, HDL 53 and LDL of 94 -continue current atorvastatin therapy, atorvastatin 20 mg p.o. daily Alcohol abuse reporting 12, 12 oz beers daily: -Advised on efforts at cessation of alcohol use Probable sleep apnea: -the patient reports loud snoring and his significant other has reported periods of apnea nocturnally and the patient has had daytime fatigue and somnolence -O2 sat overnight was noted to be 90% and patient was snoring -we will require outpatient follow-up for sleep study assessment PHYSICIAN ATTESTATION OF PHYSICIAN REAR ADMIRAL DOCUMENTATION: I attest that I was physically present for the ansari portions of the service and evaluated the patient with the Physician Jewel Bearing Grinder, and I reviewed and discussed the case with the Physician Jewel Bearing Grinder and made modifications to the Physician Jewel Bearing Grinder's findings and plans of care as documented above FRANCIS FU Feb 14, 2024 10:03 SEAMUS RAYA MD Feb 14, 2024 15:43
[2024-02-14] MEDS: EMPAGLIFLOZIN 10MG TABLET PO SCH (10:18)
[2024-02-15] VITALS (12 sets, daily range): BP systolic 136–178; BP diastolic 82–104; PULSE 60–98; RESP 16–20; TEMP 97.1–99.1; O2SAT 96–100
[2024-02-15 04:37] LABS: BASOPHILS # (AUTO) 0.02 K/uL (0.00-0.20); BASOPHILS % (AUTO) 0.3 % (0.0-5.0); EOSINOPHILS # (AUTO) 0.15 K/uL (0.00-0.70); HEMATOCRIT 54.4 % (42-54); IMMATURE GRANULOCYTE ABSOLUTE 0.02 K/uL (0-1); LYMPHOCYTES # (AUTO) 2.6 K/uL (1.0-4.8); LYMPHOCYTES % (AUTO) 34.1 % (21.0-51.0); MEAN CORPUSCULAR HEMOGLOBIN 29.6 pg (27.0-33.0); MEAN CORPUSCULAR HGB CONC 32.5 g/dL (32.0-36.0); MEAN CORPUSCULAR VOLUME 91.1 fL (79-99); MONOCYTES # (AUTO) 0.7 K/uL (0.1-1.0); MONOCYTES % (AUTO) 9.3 % (3.0-13.0); NEUTROPHILS # (AUTO) 4.1 K/uL (1.8-7.7); PLATELET COUNT (AUTO) 145 K/uL (130-400); RED BLOOD CELL COUNT(AUTO) 5.97 MIL/uL (4.50-6.20); RED CELL DISTRIBUTION WIDTH 13.1 % (11.0-15.5); WHITE BLOOD COUNT (AUTO) 7.6 K/uL (4.8-10.8)
[2024-02-15 04:48] LABS: INR 1.02 (0.85-1.15)
[2024-02-15 04:49] LABS: PARTIAL THROMBOPLASTIN TIME 28.2 SEC (26.3-35.5)
[2024-02-15 05:16] LABS: ALBUMIN 3.5 g/dL (3.5-5.0); BILIRUBIN,TOTAL 0.8 mg/dL (0.2-1.0); CREATININE 1.1 mg/dL (0.5-1.3); MAGNESIUM 2.1 mg/dL (1.80-2.40); TOTAL PROTEIN, SERUM 7.5 g/dL (6.0-8.3)
--- NOTE | 2024-02-15 09:16 | PN ---
[facility] CARDIOLOGY PROGRESS NOTE Date Patient Seen: Feb 15, 2024 Time of Visit: 09:14 Problem List: Hypertension Elevated troponin Interval History: NPO pending [facility] No complaints Physical Examination: GENERAL: [No acute distress.] LUNGS: [Clear breath sounds bilaterally. No wheezes, or rhonchi.] HEART: [Normal rate and rhythm. Normal S1 and S2 without murmurs, gallop or rub.] EXT: [No clubbing, cyanosis or edema.] SKIN: [No rashes or lesions noted.] NEURO: [Awake, alert, and oriented x3. No focal sensory or strength deficits noted.] Laboratory: [ ] Hematology Labs: Test 02/15/24 04:17 Range/Units White Blood Count 7.6 4.8-10.8 K/uL Red Blood Count 5.97 4.50-6.20 MIL/uL Hemoglobin 17.7 14.0-18.0 g/dL Hematocrit 54.4 H 42-54 % Mean Corpuscular Volume 91.1 79-99 fL Mean Corpuscular Hemoglobin 29.6 27.0-33.0 pg Mean Corpuscular Hemoglobin Concent 32.5 32.0-36.0 g/dL Red Cell Distribution Width 13.1 11.0-15.5 % Platelet Count 145 130-400 K/uL Mean Platelet Volume 11.0 H 7.5-10.5 fL Immature Granulocyte % (Auto) 0.3 0-1 % Neutrophils (%) (Auto) 54.0 40.0-77.0 % Lymphocytes (%) (Auto) 34.1 21.0-51.0 % Monocytes (%) (Auto) 9.3 3.0-13.0 % Eosinophils (%) (Auto) 2.0 0.0-8.0 % Basophils (%) (Auto) 0.3 0.0-5.0 % Neutrophils # (Auto) 4.1 1.8-7.7 K/uL Lymphocytes # (Auto) 2.6 1.0-4.8 K/uL Monocytes # (Auto) 0.7 0.1-1.0 K/uL Eosinophils # (Auto) 0.15 0.00-0.70 K/uL Basophils # (Auto) 0.02 0.00-0.20 K/uL Absolute Immature Granulocyte (auto 0.02 0-1 K/uL Nucleated Red Blood Cells 0.0 0.0-0.19 % Chemistry Labs: Test 02/15/24 04:17 02/13/24 10:15 Range/Units Sodium Level 141 136-145 mmol/L Potassium Level 4.0 3.5-5.1 mmol/L Chloride Level 105 101-111 mmol/L Carbon Dioxide Level 29 21-32 mmol/L Blood Urea Nitrogen 14 7-18 mg/dL Creatinine 1.1 0.5-1.3 mg/dL Glomerular Filtration Rate Calc 79 >90 mL/min Random Glucose 99 70-105 mg/dL Total Calcium 9.0 8.5-10.1 mg/dL Magnesium Level 2.10 1.80-2.40 mg/dL Total Bilirubin 0.8 0.2-1.0 mg/dL Aspartate Amino Transf (AST/SGOT) 19 10-37 U/L Alanine Aminotransferase (ALT/SGPT) 34 12-78 U/L Alkaline Phosphatase 96 50-136 U/L Total Protein 7.5 6.0-8.3 g/dL Albumin 3.5 3.5-5.0 g/dL B-Type Natriuretic Peptide 116 H 0-100 pg/mL Coagulation Labs: Test 02/15/24 04:17 Range/Units Prothrombin Time 11.0 9.6-11.6 SEC Prothromb Time International Ratio 1.02 0.85-1.15 Activated Partial Thromboplast Time 28.2 26.3-35.5 SEC Impression and Plan: Elevated troponin Hypertensive emergency. Hypertension continues to be uncontrolled. New onset cardiomyopathy with LVEF 30-35% Heavy ETOH use Diastolic dysfunction Continue aspirin, statin Continue GDMT for HFREF : Entresto, beta michelle, spironolactone, jardiance. Blood pressure shows improved control Due to LVEF <35%, LifeVest upon discharge. Order signed 02/11/24. CCTA performed due to elevated troponin and reduction in LVEF. Unable to clearly visualize entirety of LAD and LCX due to calcification which may represent hemodynamically significant stenoses. He is pending [facility], coronary angiography with possible PCI today. SHELRY MAXWELL DO Feb 15, 2024 09:16
--- NOTE | 2024-02-15 09:30 | PN ---
[facility] PROGRESS NOTE Date of Service: Feb 15, 2024 Time of Service: 09:26 SUBJECTIVE: [ ] This is a 54-year-old male that presents in ER with concerns of shortness a breath. Onset one week, however today was different shortness of breast duration was longer. He reports he only happens in the morning when he is getting dressed to go to work. Patient also reports edema to lower extremity occasionally over the past week. Associated symptoms racing of the heart. Denied chest pain,or dizziness Patient denies smoking but does report drinks alcohol on a daily basis eight beers daily. Patient has significant medical history hypertension hyperlipidemia however noncompliance with medication treatment. 02/10/2024 patient is seen and examined in ER holding [address] Jimenez patient was seen by secondary social studies teacher's appreciate their input. Echo new onset of cardiomyopathy with LV EF of 30-35% diastolic dysfunction. Scheduled CCTA with Lexiscan. Patient denies no chest pain or shortness a breath. We will follow- up on Lexiscan results. 02/11/24 patient is seen and examined with Dr. Jimenez room 321. Review secondary social studies teacher's note in detail patient will need LifeVest upon discharge given to EF of 35%. Blood pressure medication being adjusted secondary social studies teacher's added sp ironolactone this morning blood pressure 182/117 overnight patient was given hydralazine. This morning blood pressure 142/93. The patient complained of abd discomfort, having bowel movement will get CT abd/pelvis now will follow up results. 02/12/24: patient seen and examined . Patient continues uncontrolled blood pressure secondary social studies teacher's adjusted now patient is on Toprol-XL 50 p.o. daily Norvasc5 mg p.o. b.i.d. harm losartan 50 mg p.o. b.i.d. we will start hydralazine given to patient became flushed. Patient is pending LifeVest no chest pain events overnight. 02/13/24 patient is seen and examined reviewed chart. Case management to arrange LifeVest in process. Blood pressure continues [id number] we will increase spironolactone to 50 mg daily. We will continue to monitor blood pressure. Patient denied chest pain, shortness a breath. 02/14/24 patient is seen and examined with attending reviewed chart, no chest pain events overnight. blood pressure continues systolic above 160. Jardiance was just initiated this morning Entresto dosage was increased per secondary social studies teacher's patient with dyspnea at rest patient is scheduled for a left heart catheterization in a.m... We will monitor BP. Life vest in process 02/15/24 patient is seen and examined with attending Dr. Jimenez reviewed chart. Patient is alert oriented x3. no chest pain events overnight. we appreciate secondary social studies teacher's input patient's blood pressure is much controlled now. Patient is pending left heart catheterization coronary angiography with possible PCI REVIEW OF SYSTEMS CONSTITUTIONAL: Denies fevers, chills, or night sweats. No unintentional weight loss reported. NEUROLOGICAL: Denies headache, amaurosis fugax, motor weakness, sensory deficit, vertigo/spinning sensation, gait abnormalities, or tremors. ENT: No hearing loss, otalgia, otorrhea, rhinitis, rhinorrhea, hoarseness, or sore throat. CARDIOVASCULAR: Denies any exertional angina, dyspnea on exertion, orthopnea, paroxysmal nocturnal dyspnea, palpitations, life-threatening arrhythmias, emerson ication. PULMONARY: Denies any shortness of breath, cough, phlegm/sputum, hemoptysis, pleuritic chest pain. SLEEP: Denies morning headaches, daytime somnolence or napping. Denies difficulty falling asleep, staying asleep, waking from sleep. Denies knowledge of snoring. GASTROINTESTINAL: Denies any type of dysphagia to either liquids or solids. Denies nausea, vomiting, pyrosis, early satiety, abdominal pain, diarrhea, constipation, or changes in stool consistency or caliber. Denies coffee-ground emesis, hematemesis, hematochezia, or melanotic stools. GENITOURINARY: Denies frequency, urgency, nocturia, hematuria or incontinence (Storage/Irritative symptoms.) Low urinary stream, straining to void, urinary intermittency or hesitancy, splitting of the voiding stream, terminal dribbling. ENDOCRINOLOGIC: Denies polyuria, polydipsia, polyphagia or heat/cold intolerances. HEMATOLOGIC: Denies thrombophilia/previous clots, or coagulopathy/bleeding disorders. ONCOLOGIC: Denies personal history of malignancy. DERMATOLOGIC: Denies rashes or pruritus. PSYCHIATRIC: Denies any suicidal or homicidal ideation. Denies hallucinations. PHYSICAL EXAM GENERAL APPEARANCE: The patient is awake, alert, and oriented, in no acute cardiopulmonary distress. NEUROLOGICAL: Cranial nerves II-XII grossly intact. Motor is 5/5 in bilateral upper and lower extremities proximal to distal. No sensory deficits. HEENT: Face is symmetric. Pupils are equal and reactive. Extraocular movements are intact. NECK: Supple. No JVD. No thyromegaly. No submental, submandibular, pre- /postauricular, occipital or supraclavicular lymphadenopathy. CHEST: Normal chest expansion. No Telemetry. LUNGS: Absence of any rales, rhonchi or any wheezing. CARDIOVASCULAR: Regular. S1 and S2 normal. No appreciable rubs, murmurs or gallops. ABDOMEN: Soft, nontender, and nondistended. There is no rebound, voluntary guarding, or rigidity. : Deferred. No Keller. EXTREMITIES: Non-edematous and not cyanotic. No clubbing. Good capillary refill. SKIN: No skin breakdown. Vital Signs (last 8hr) Date Time Temp Pulse Resp B/P (MAP) Pulse Ox O2 Delivery O2 Flow Rate FiO2 02/15/24 08:00 98.2 70 20 136/87 96 Room Air 02/15/24 04:00 97.2 71 20 178/99 96 Nasal Cannula LABS: Laboratory: Test 02/15/24 04:17 02/13/24 10:15 Range/Units White Blood Count 7.6 4.8-10.8 K/uL Red Blood Count 5.97 4.50-6.20 MIL/uL Hemoglobin 17.7 14.0-18.0 g/dL Hematocrit 54.4 H 42-54 % Mean Corpuscular Volume 91.1 79-99 fL Mean Corpuscular Hemoglobin 29.6 27.0-33.0 pg Mean Corpuscular Hemoglobin Concent 32.5 32.0-36.0 g/dL Red Cell Distribution Width 13.1 11.0-15.5 % Platelet Count 145 130-400 K/uL Mean Platelet Volume 11.0 H 7.5-10.5 fL Immature Granulocyte % (Auto) 0.3 0-1 % Neutrophils (%) (Auto) 54.0 40.0-77.0 % Lymphocytes (%) (Auto) 34.1 21.0-51.0 % Monocytes (%) (Auto) 9.3 3.0-13.0 % Eosinophils (%) (Auto) 2.0 0.0-8.0 % Basophils (%) (Auto) 0.3 0.0-5.0 % Neutrophils # (Auto) 4.1 1.8-7.7 K/uL Lymphocytes # (Auto) 2.6 1.0-4.8 K/uL Monocytes # (Auto) 0.7 0.1-1.0 K/uL Eosinophils # (Auto) 0.15 0.00-0.70 K/uL Basophils # (Auto) 0.02 0.00-0.20 K/uL Absolute Immature Granulocyte (auto 0.02 0-1 K/uL Nucleated Red Blood Cells 0.0 0.0-0.19 % Prothrombin Time 11.0 9.6-11.6 SEC Prothromb Time International Ratio 1.02 0.85-1.15 Activated Partial Thromboplast Time 28.2 26.3-35.5 SEC Sodium Level 141 136-145 mmol/L Potassium Level 4.0 3.5-5.1 mmol/L Chloride Level 105 101-111 mmol/L Carbon Dioxide Level 29 21-32 mmol/L Blood Urea Nitrogen 14 7-18 mg/dL Creatinine 1.1 0.5-1.3 mg/dL Glomerular Filtration Rate Calc 79 >90 mL/min Random Glucose 99 70-105 mg/dL Total Calcium 9.0 8.5-10.1 mg/dL Magnesium Level 2.10 1.80-2.40 mg/dL Total Bilirubin 0.8 0.2-1.0 mg/dL Aspartate Amino Transf (AST/SGOT) 19 10-37 U/L Alanine Aminotransferase (ALT/SGPT) 34 12-78 U/L Alkaline Phosphatase 96 50-136 U/L Total Protein 7.5 6.0-8.3 g/dL Albumin 3.5 3.5-5.0 g/dL B-Type Natriuretic Peptide 116 H 0-100 pg/mL Current Medications Medications (Trade) Dose Ordered Sig/Chris Route PRN Reason Start Time Stop Time Status Last Admin Dose Admin Acetaminophen (TYLenol 325MG TAB) 650 mg Q4H PRN PO TEMPERATURE GREATER THAN 101.5 02/09/24 14:00 03/10/24 13:59 Aspirin (Aspirin 81mg Chew Tab) 81 mg DAILY PO 02/10/24 09:00 03/11/24 08:59 02/14/24 08:39 81 MG Atorvastatin Calcium (LIPItor 20MG) 20 mg HS PO 02/09/24 21:00 03/10/24 20:59 02/14/24 21:05 20 MG Empaglifozin (Jardiance 10mg) 10 mg DAILY PO 02/14/24 09:00 03/15/24 08:59 02/14/24 10:18 10 MG Enoxaparin Sodium (Lovenox 80mg) 80 mg DAILY SQ 02/10/24 09:00 02/09/24 14:53 DC Heparin Sodium (Porcine) (HEParin 5,000 UNIT VIAL) 5,000 unit Q12H SQ 02/09/24 10:00 02/09/24 13:46 DC Hydralazine HCl (APRESOLine 20MG INJ) 10 mg Q6H PRN IV ADMINISTER FOR SBP > 160 02/11/24 00:30 03/12/24 00:29 02/14/24 16:21 10 MG Hydralazine HCl ([id number] TAB) 25 mg TID PO 02/11/24 16:00 02/12/24 10:44 DC 02/12/24 08:55 25 MG Labetalol HCl (TRANdate 20MG SYG) 10 mg Q6H PRN IV systolic > 160 02/09/24 15:30 02/13/24 10:19 DC 02/12/24 20:26 10 MG Losartan Potassium (CozAAR 50 mg TAB) 50 mg DAILY PO 02/10/24 09:00 02/12/24 07:34 DC 02/11/24 09:22 50 MG Magnesium Sulfate 50 ml @ 0 mls/hr PROTOCOL PRN IV low mag level 02/09/24 14:00 03/10/24 13:59 Metoprolol Succinate (TopROL XL) 50 mg DAILY PO 02/12/24 09:00 03/13/24 08:59 02/14/24 08:39 50 MG Metoprolol Tartrate (loprESSOR) 12.5 mg BID PO 02/10/24 09:00 02/11/24 18:02 DC 02/11/24 09:22 12.5 MG Metoprolol Tartrate (loprESSOR) 25 mg BID PO 02/11/24 21:00 02/12/24 07:38 DC 02/11/24 21:57 25 MG Potassium Chloride 100 ml @ 100 mls/hr AD PRN IV POTASSIUM PROTOCOL 02/09/24 14:00 03/10/24 13:59 Potassium Chloride (K-Dur/Klor-Con 20meq) 20 meq AD PRN PO POTASSIUM PROTOCOL 02/09/24 14:00 03/10/24 13:59 02/11/24 01:28 20 MEQ Potassium Chloride (KCl 10% Elixir 20meq/15ml) 20 meq AD PRN PO POTASSIUM PROTOCOL 02/09/24 14:00 03/10/24 13:59 Sacubitril/ Valsartan (Entresto 24 Mg-26 Mg Tablet) 1 each ONCE PO 02/14/24 10:00 02/14/24 10:01 DC 02/14/24 10:18 1 EACH Sacubitril/ Valsartan (Entresto 49 Mg-51 Mg Tablet) 1 each [id number] PO 02/12/24 09:00 02/14/24 08:49 DC 02/14/24 05:54 1 EACH Sacubitril/ Valsartan (Entresto 97 Mg-103 Mg Tablet) 1 each BID PO 02/14/24 09:00 03/15/24 08:59 02/14/24 21:05 1 EACH Spironolactone (Aldactone 25mg) 25 mg DAILY PO 02/11/24 09:00 03/12/24 08:59 02/14/24 08:39 25 MG Thiamine HCl (Vitamin B-1) 100 mg DAILY PO 02/10/24 09:00 03/11/24 08:59 02/14/24 08:39 100 MG DIAGNOSTICS / RADIOLOGY: [ ] ASSESSMENT: NSTEMI POA Acute heart failure with diastolic dysfunction EF of 30-35%. POA New onset of cardiomyopathy EF 30-35% POA suspecting type II VT in the setting of uncontrolled blood pressure POA HTN urgency POA Tachycardia POA Dyspnea with minimal exertion POA ETOH abuse POA hypokalemia POA abd pain PLAN: [ ] admit to PCCU with telemetry monitoring consult: Reconditioning Associate LifeVest upon discharge case management; order was signed Reconditioning Associate's schedule patient for left heart catheterization in a.m.. changes made to BP meds: started the patient on toprol xl 50 mg daily losartan 50 mg po bid, Norvasc 5 mg bid. Entresto b.i.d. dosage was increased. Jardiance was started today will cont with [id number] mg po daily aspirin and statin therapy 6 minute walk close to discharge. [facility] protocol provided counseling social security assessor for community resources. Replace electrolytes as needed per protocol goal is to keep potassium above four and magnesium above 2 PRN: MEDICATIONS Tylenol 650 mg po every 4 hrs for fever Zofran 4 mg IV every 6 hrs for n/v Hydralazine 10 mg IV every 4 hrs systolic pressure > 160 Supportive measures: DVT ppx, GI ppx all questions answered Case management life vest in process Supervising MD: Dr.Ellis Tavon barber/blanca ATTESTATION BY PHYSICIAN I have seen and examined the patient. I reviewed the documentation, medical decision making, and treatment plan as noted by the mid-level provider above. I agree with the findings and plan of care. DOMO JIMENEZ MD, ELIZABETH NP Feb 15, 2024 09:30
[2024-02-15] MEDS ORDERED: LIDOCAINE HCL 400MG/20ML VIAL ONE (15:14)
[2024-02-15] MEDS ORDERED: NITROGLYCERIN 50MG VIAL ONE (15:14)
[2024-02-15] MEDS ORDERED: HEParin 10,000 UNIT/10ML (1,000 UNIT/ML) VIAL ONE (15:14)
[2024-02-15] MEDS ORDERED: HEParin-NS 1,000 UNIT/500 ML 1,000 ML IV ONE (15:14)
[2024-02-15] MEDS ORDERED: IOHEXOL 350 MG/ML 100ML INFUS..BTL IV ONE (15:14)
[2024-02-15] MEDS ORDERED: BIVALIRUDIN 250 MG/VIAL IV ONE (15:14)
[2024-02-15] MEDS ORDERED: FENTanyl CITRate PF 50 MCG/1 ML 2ML VIAL ONE (15:43)
[2024-02-15] MEDS ORDERED: MIDAZOLAM HCL 1 MG/ML 2ML VIAL ONE (15:44)
[2024-02-15] MEDS ORDERED: TICAGrelor 90 MG TABLET ONE (16:37)
[2024-02-15] MEDS ORDERED: ASPIRIN 81MG CHEW TAB ONE (16:37)
[2024-02-15] MEDS ORDERED: LAbetaLOL 20MG SYG IV ONE (16:46)
--- NOTE | 2024-02-15 16:58 | PRN ---
PROCEDURES: 1. Right common femoral arterial sheath placement. 2. Selective coronary angiogram. 3. Left heart catheterization. 4. Intravascular ultrasound of LAD 5. Lithotripsy angioplasty to proximal and mid LAD with a 4 mm x 12 mm balloon deployed up to six atmospheres for a total of six treatments overlapping fashion 6. Stent placement to proximal mid LAD with the use of a 4 mm x 34 mm resolute keo stent deployed to 4.30 mm INDICATION: Non-STEMI DESCRIPTION OF PROCEDURE: The patient was brought to the catheterization suite and prepped and draped in sterile fashion. IV was started, and not already in place and both groins were exposed for arterial access. 1% lidocaine was used for local anesthesia and then a micropuncture kit was used to gain access once free-flowing blood was seen, modified Seldinger technique was utilized to place a 6 [place] sheath into the right common femoral artery. Next, preformed JL4 and JR 4 catheters were used to selectively engage the [place] coronary vessels and multiple hand contrast injections were performed in different views to define the coronary anatomy. The JR4 catheter also used to cross the aortic valve and pressure measurements were obtained. A left ventriculogram however was not performed. FINDINGS: The left main artery is short with no stenosis present. The left anterior descending artery in its mid segment has an 85-90% stenosis which was heavily calcified. The left circumflex artery is a codominant system giving rise to the left posterolateral branch. Obtuse marginal branch system is large and free of stenosis. The body of the left circumflex and left posterolateral branch are free of stenosis. The right coronary artery is a codominant system giving rise to the RPDA. There are luminal irregularities noted but no significant stenosis seen. LVEDP is normal INTERVENTIONAL REPORT: After diagnostic angiography was performed it was felt intervention should be done to LAD. This was felt to be the infarct-related vessel. This was heavily calcified and it was felt intravascular ultrasound should be performed. Therefore a six [place]uv[place] q.4 guide catheter was placed in the left coronary system and a choice PT extra-support 0.014 in wire was then placed in the distal ongoing apical LAD under fluoroscopic guidance. Intravascular ultrasound catheter was then used to interrogate the proximal mid and distal LAD. Vessel size was noted to be likely 4.5 mm. There was greater than 270 to 300 of calcium noted in the mid LAD. It was felt lithotripsy an gioplasty should be performed therefore a 4 mm x 12 mm lithotripsy balloon was then placed into the proximal and mid LAD in overlapping fashion with a total of six treatments administered. Highest inflation of balloon was at six atmospheres. Next a 4 mm x 34 mm resolute keo stent was then placed in the proximal mid LAD and deployed. This was deployed to 4.30 mm. Follow up cont rast injection with Lovenox of dissection or perforation. There was slight pinching noted of diagonal branch 2. With GISELLA three flow noted in all vessels. At end of case sheath was sewn into place and no complications occurred. RECOMMENDATIONS: Continue with dual antiplatelet therapy uninterrupted for a minimum of three months and then consider single agent thereafter Possible discharge in a.m. Optimize blood pressure control with beta blockade and ARB High-dose statin Consider outpatient Jardiance are FELA Hillman MD Feb 15, 2024 16:58
[2024-02-15] MEDS: 0.9%NACL 1000ML 1,000 ML IV SCH (18:05)
[2024-02-15] MEDS: traMADol HCL 50 MG TABLET PO ONE (18:36)
--- NOTE | 2024-02-15 21:45 | NUR ---
BLOOD PRESSURE 1900- 157/89 1999-159/92 2014-159/100 2024-160/97- PRN HYDRALAZINE ADMINISTERED 2144-138/91 WITH HEART RATE 60-62 BPM 0- 6fr SHEATH REMOVED BY OLI MCLAUGHLIN. PATIENT BECAME SYMPTOMATIC SOON SHEATH WAS REMOVED. PATIENT DIAPHORETIC. 2153- BLOOD PRESSURE 113/68 WITH HEART RATE 46-49 BPM. HEART RATE SUSTAINING IN 46-50 BPM. BLOOD PRESSURE DROPPED TO 73/41. ADMINISTERED ATROPINE X1. 2214- BLOOD PRESSURE 135/89 WITH A HEART RATE OF 89. MANUAL PRESSURE HELD BY OLI MCLAUGHLIN FOR 20 MIN. HEMOSTASIS ACHIEVED. D-STAT PLACED T0 RIGHT GROIN PER ORDER. NO HEMATOMA, NO ACTIVE BLEEDING, PEDAL PULSES PALPABLE. PATIENT NO LONGER DIAPHORETIC OR SYMPTOMATIC.
[2024-02-15] MEDS: ATROPINE 1MG SYG IVP ONE (21:55)
[2024-02-16] VITALS (10 sets, daily range): BP systolic 115–171; BP diastolic 90–106; PULSE 62–87; RESP 16–20; TEMP 97.9–98.8; O2SAT 96–100
--- NOTE | 2024-02-16 08:15 | PN ---
[facility] PROGRESS NOTE Date of Service: Feb 16, 2024 Time of Service: 08:09 SUBJECTIVE: [ ] This is a 54-year-old male that presents in ER with concerns of shortness a breath. Onset one week, however today was different shortness of breast duration was longer. He reports he only happens in the morning when he is getting dressed to go to work. Patient also reports edema to lower extremity occasionally over the past week. Associated symptoms racing of the heart. Denied chest pain,or dizziness Patient denies smoking but does report drinks alcohol on a daily basis eight beers daily. Patient has significant medical history hypertension hyperlipidemia however noncompliance with medication treatment. 02/10/2024 patient is seen and examined in ER holding [address] Jimenez patient was seen by air crew officer's appreciate their input. Echo new onset of cardiomyopathy with LV EF of 30-35% diastolic dysfunction. Scheduled CCTA with Lexiscan. Patient denies no chest pain or shortness a breath. We will follow- up on Lexiscan results. 02/11/24 patient is seen and examined with Dr. Jimenez room 321. Review air crew officer's note in detail patient will need LifeVest upon discharge given to EF of 35%. Blood pressure medication being adjusted air crew officer's added sp ironolactone this morning blood pressure 182/117 overnight patient was given hydralazine. This morning blood pressure 142/93. The patient complained of abd discomfort, having bowel movement will get CT abd/pelvis now will follow up results. 02/12/24: patient seen and examined . Patient continues uncontrolled blood pressure air crew officer's adjusted now patient is on Toprol-XL 50 p.o. daily Norvasc5 mg p.o. b.i.d. harm losartan 50 mg p.o. b.i.d. we will start hydralazine given to patient became flushed. Patient is pending LifeVest no chest pain events overnight. 02/13/24 patient is seen and examined reviewed chart. Case management to arrange LifeVest in process. Blood pressure continues [id number] we will increase spironolactone to 50 mg daily. We will continue to monitor blood pressure. Patient denied chest pain, shortness a breath. 02/14/24 patient is seen and examined with attending reviewed chart, no chest pain events overnight. blood pressure continues systolic above 160. Jardiance was just initiated this morning Entresto dosage was increased per air crew officer's patient with dyspnea at rest patient is scheduled for a left heart catheterization in a.m... We will monitor BP. Life vest in process 02/15/24 patient is seen and examined with attending Dr. Jimenez reviewed chart. Patient is alert oriented x3. no chest pain events overnight. we appreciate air crew officer's input patient's blood pressure is much controlled now. Patient is pending left heart catheterization coronary angiography with possible PCI 02/16/24 patient is seen and examined with Dr. Jimenez reviewed chart: status post left heart catheterization5. Lithotripsy angioplasty to proximal and mid LAD with a 4 mm x 12 mm balloon deployed up to six atmospheres for a total of six treatments overlapping fashion . Stent placement to proximal mid LAD with the use of a 4 mm x 34 mm resolute keo stent deployed to 4.30 mm as per air crew officer's recommendations dual antiplatelet therapy uninterrupted for a minimum of three months then consider single agent thereafter high dose statin therapy and consider outpatient Jardiance and Farxiga. We will wait for air crew officer's clearance in final recommendations on medications. We continue to wait for LifeVest being arranged by case management REVIEW OF SYSTEMS CONSTITUTIONAL: Denies fevers, chills, or night sweats. No unintentional weight loss reported. NEUROLOGICAL: Denies headache, amaurosis fugax, motor weakness, sensory defic it, vertigo/spinning sensation, gait abnormalities, or tremors. ENT: No hearing loss, otalgia, otorrhea, rhinitis, rhinorrhea, hoarseness, or sore throat. CARDIOVASCULAR: Denies any exertional angina, dyspnea on exertion, orthopnea, paroxysmal nocturnal dyspnea, palpitations, life-threatening arrhythmias, claudication. PULMONARY: Denies any shortness of breath, cough, phlegm/sputum, hemoptysis, pleuritic chest pain. SLEEP: Denies morning headaches, daytime somnolence or napping. Denies difficulty falling asleep, staying asleep, waking from sleep. Denies knowledge of snoring. GASTROINTESTINAL: Denies any type of dysphagia to either liquids or solids. Denies nausea, vomiting, pyrosis, early satiety, abdominal pain, diarrhea, constipation, or changes in stool consistency or caliber. Denies coffee-ground emesis, hematemesis, hematochezia, or melanotic stools. GENITOURINARY: Denies frequency, urgency, nocturia, hematuria or incontinence (Storage/Irritative symptoms.) Low urinary stream, straining to void, urinary intermittency or hesitancy, splitting of the voiding stream, terminal dribbling. ENDOCRINOLOGIC: Denies polyuria, polydipsia, polyphagia or heat/cold intolerances. HEMATOLOGIC: Denies thrombophilia/previous clots, or coagulopathy/bleeding disorders. ONCOLOGIC: Denies personal history of malignancy. DERMATOLOGIC: Denies rashes or pruritus. PSYCHIATRIC: Denies any suicidal or homicidal ideation. Denies hallucinations. PHYSICAL EXAM GENERAL APPEARANCE: The patient is awake, alert, and oriented, in no acute cardiopulmonary distress. NEUROLOGICAL: Cranial nerves II-XII grossly intact. Motor is 5/5 in bilateral upper and lower extremities proximal to distal. No sensory deficits. HEENT: Face is symmetric. Pupils are equal and reactive. Extraocular movements are intact. NECK: Supple. No JVD. No thyromegaly. No submental, submandibular, pre- /postauricular, occipital or supraclavicular lymphadenopathy. CHEST: Normal chest expansion. No Telemetry. LUNGS: Absence of any rales, rhonchi or any wheezing. CARDIOVASCULAR: Regular. S1 and S2 normal. No appreciable rubs, murmurs or gallops. ABDOMEN: Soft, nontender, and nondistended. There is no rebound, voluntary guarding, or rigidity. : Deferred. No Keller. EXTREMITIES: Non-edematous and not cyanotic. No clubbing. Good capillary refill. SKIN: No skin breakdown. Vital Signs (last 8hr) Date Time Temp Pulse Resp B/P (MAP) Pulse Ox O2 Delivery O2 Flow Rate FiO2 02/16/24 07:15 100 Room Air* 0 21 02/16/24 03:13 98.8 87 18 149/95 98 Room Air LABS: Laboratory: Test 02/16/24 05:07 02/15/24 19:05 02/15/24 04:17 Range/Units Whole Blood Glucose 119 H 70-110 MG/DL Activated Partial Thromboplast Time 60.6 #H 26.3-35.5 SEC White Blood Count 7.6 4.8-10.8 K/uL Red Blood Count 5.97 4.50-6.20 MIL/uL Hemoglobin 17.7 14.0-18.0 g/dL Hematocrit 54.4 H 42-54 % Mean Corpuscular Volume 91.1 79-99 fL Mean Corpuscular Hemoglobin 29.6 27.0-33.0 pg Mean Corpuscular Hemoglobin Concent 32.5 32.0-36.0 g/dL Red Cell Distribution Width 13.1 11.0-15.5 % Platelet Count 145 130-400 K/uL Mean Platelet Volume 11.0 H 7.5-10.5 fL Immature Granulocyte % (Auto) 0.3 0-1 % Neutrophils (%) (Auto) 54.0 40.0-77.0 % Lymphocytes (%) (Auto) 34.1 21.0-51.0 % Monocytes (%) (Auto) 9.3 3.0-13.0 % Eosinophils (%) (Auto) 2.0 0.0-8.0 % Basophils (%) (Auto) 0.3 0.0-5.0 % Neutrophils # (Auto) 4.1 1.8-7.7 K/uL Lymphocytes # (Auto) 2.6 1.0-4.8 K/uL Monocytes # (Auto) 0.7 0.1-1.0 K/uL Eosinophils # (Auto) 0.15 0.00-0.70 K/uL Basophils # (Auto) 0.02 0.00-0.20 K/uL Absolute Immature Granulocyte (auto 0.02 0-1 K/uL Nucleated Red Blood Cells 0.0 0.0-0.19 % Prothrombin Time 11.0 9.6-11.6 SEC Prothromb Time International Ratio 1.02 0.85-1.15 Sodium Level 141 136-145 mmol/L Potassium Level 4.0 3.5-5.1 mmol/L Chloride Level 105 101-111 mmol/L Carbon Dioxide Level 29 21-32 mmol/L Blood Urea Nitrogen 14 7-18 mg/dL Creatinine 1.1 0.5-1.3 mg/dL Glomerular Filtration Rate Calc 79 >90 mL/min Random Glucose 99 70-105 mg/dL Total Calcium 9.0 8.5-10.1 mg/dL Magnesium Level 2.10 1.80-2.40 mg/dL Total Bilirubin 0.8 0.2-1.0 mg/dL Aspartate Amino Transf (AST/SGOT) 19 10-37 U/L Alanine Aminotransferase (ALT/SGPT) 34 12-78 U/L Alkaline Phosphatase 96 50-136 U/L Total Protein 7.5 6.0-8.3 g/dL Albumin 3.5 3.5-5.0 g/dL Current Medications Medications (Trade) Dose Ordered Sig/Chris Route PRN Reason Start Time Stop Time Status Last Admin Dose Admin Acetaminophen (TYLenol 325MG TAB) 650 mg Q4H PRN PO TEMPERATURE GREATER THAN 101.5 02/09/24 14:00 03/10/24 13:59 Aspirin (Aspirin 81mg Chew Tab) 81 mg DAILY PO 02/10/24 09:00 03/11/24 08:59 02/14/24 08:39 81 MG Atorvastatin Calcium (LIPItor 20MG) 20 mg HS PO 02/09/24 21:00 03/10/24 20:59 02/15/24 20:25 20 MG Empaglifozin (Jardiance 10mg) 10 mg DAILY PO 02/14/24 09:00 03/15/24 08:59 02/14/24 10:18 10 MG Enoxaparin Sodium (Lovenox 80mg) 80 mg DAILY SQ 02/10/24 09:00 02/09/24 14:53 DC Heparin Sodium (Porcine) (HEParin 5,000 UNIT VIAL) 5,000 unit Q12H SQ 02/09/24 10:00 02/09/24 13:46 DC Hydralazine HCl (APRESOLine 20MG INJ) 10 mg Q6H PRN IV ADMINISTER FOR SBP > 160 02/11/24 00:30 03/12/24 00:29 02/15/24 20:25 10 MG Hydralazine HCl ([id number] TAB) 25 mg TID PO 02/11/24 16:00 02/12/24 10:44 DC 02/12/24 08:55 25 MG Labetalol HCl (TRANdate 20MG SYG) 10 mg Q6H PRN IV systolic > 160 02/09/24 15:30 02/13/24 10:19 DC 02/12/24 20:26 10 MG Losartan Potassium (CozAAR 50 mg TAB) 50 mg DAILY PO 02/10/24 09:00 02/12/24 07:34 DC 02/11/24 09:22 50 MG Magnesium Sulfate 50 ml @ 0 mls/hr PROTOCOL PRN IV low mag level 02/09/24 14:00 03/10/24 13:59 Metoprolol Succinate (TopROL XL) 50 mg DAILY PO 02/12/24 09:00 03/13/24 08:59 02/14/24 08:39 50 MG Metoprolol Tartrate (loprESSOR) 12.5 mg BID PO 02/10/24 09:00 02/11/24 18:02 DC 02/11/24 09:22 12.5 MG Metoprolol Tartrate (loprESSOR) 25 mg BID PO 02/11/24 21:00 02/12/24 07:38 DC 02/11/24 21:57 25 MG Potassium Chloride 100 ml @ 100 mls/hr AD PRN IV POTASSIUM PROTOCOL 02/09/24 14:00 03/10/24 13:59 Potassium Chloride (K-Dur/Klor-Con 20meq) 20 meq AD PRN PO POTASSIUM PROTOCOL 02/09/24 14:00 03/10/24 13:59 02/11/24 01:28 20 MEQ Potassium Chloride (KCl 10% Elixir 20meq/15ml) 20 meq AD PRN PO POTASSIUM PROTOCOL 02/09/24 14:00 03/10/24 13:59 Sacubitril/ Valsartan (Entresto 24 Mg-26 Mg Tablet) 1 each ONCE PO 02/14/24 10:00 02/14/24 10:01 DC 02/14/24 10:18 1 EACH Sacubitril/ Valsartan (Entresto 49 Mg-51 Mg Tablet) 1 each [id number] PO 02/12/24 09:00 02/14/24 08:49 DC 02/14/24 05:54 1 EACH Sacubitril/ Valsartan (Entresto 97 Mg-103 Mg Tablet) 1 each BID PO 02/14/24 09:00 03/15/24 08:59 02/15/24 20:25 1 EACH Sodium Chloride 1,000 ml @ 100 mls/hr Q10H IV 02/15/24 17:00 02/15/24 22:59 DC 02/15/24 18:05 100 MLS/HR Spironolactone (Aldactone 25mg) 25 mg DAILY PO 02/11/24 09:00 03/12/24 08:59 02/14/24 08:39 25 MG Thiamine HCl (Vitamin B-1) 100 mg DAILY PO 02/10/24 09:00 03/11/24 08:59 02/14/24 08:39 100 MG DIAGNOSTICS / RADIOLOGY: [ ] ASSESSMENT: NSTEMI POA status post left heart catheterization Lithotripsy angioplasty to proximal and mid LAD with a 4 mm x 12 mm balloon deployed up to six atmospheres for a total of six treatments overlapping fashion and Stent placement to proximal mid LAD with the use of a 4 mm x 34 mm resolute keo stent deployed to 4.30 mm Acute heart failure with diastolic dysfunction EF of 30-35%. POA New onset of cardiomyopathy EF 30-35% POA suspecting type II SD in the setting of uncontrolled blood pressure POA HTN urgency POA Tachycardia POA Dyspnea with minimal exertion POA ETOH abuse POA hypokalemia POA abd pain PLAN: [ ] admit to [facility]U with telemetry monitoring consult: Orthopedic Radiologic Technologist LifeVest upon discharge case management; order was signed Orthopedic Radiologic Technologist's schedule patient for left heart catheterization in a.m.. changes made to BP meds: started the patient on toprol xl 50 mg daily losartan 50 mg po bid, Norvasc 5 mg bid. Entresto b.i.d. dosage was increased. Jardiance continues will cont with [id number] mg po daily aspirin and statin therapy we will be changed to a high dose prior to discharge patient needs to be on dual anti platelet therapy for three months [facility] protocol provided counseling pediatric social worker for community resources. Replace electrolytes as needed per protocol goal is to keep potassium above four and magnesium above 2 PRN: MEDICATIONS Tylenol 650 mg po every 4 hrs for fever Zofran 4 mg IV every 6 hrs for n/v Hydralazine 10 mg IV every 4 hrs systolic pressure > 160 Supportive measures: DVT ppx, GI ppx all questions answered Case management life vest in process waiting for documents from Bank Supervising MD: Dr.Ellis Tavon barber/blanca ATTESTATION BY PHYSICIAN I have seen and examined the patient. I reviewed the documentation, medical decision making, and treatment plan as noted by the mid-level provider above. I agree with the findings and plan of care. DOMO JIMENEZ MD, ELIZABETH NP Feb 16, 2024 08:15
[2024-02-16 08:36] LABS: BASOPHILS # (AUTO) 0.02 K/uL (0.00-0.20); BASOPHILS % (AUTO) 0.2 % (0.0-5.0); EOSINOPHILS # (AUTO) 0.05 K/uL (0.00-0.70); EOSINOPHILS % (AUTO) 0.5 % (0.0-8.0); HEMATOCRIT 49.3 % (42-54); IMMATURE GRANULOCYTE ABSOLUTE 0.02 K/uL (0-1); LYMPHOCYTES % (AUTO) 21.7 % (21.0-51.0); MEAN CORPUSCULAR HEMOGLOBIN 29.5 pg (27.0-33.0); MEAN CORPUSCULAR HGB CONC 33.5 g/dL (32.0-36.0); MONOCYTES # (AUTO) 0.7 K/uL (0.1-1.0); MONOCYTES % (AUTO) 7.8 % (3.0-13.0); NEUTROPHILS # (AUTO) 6.3 K/uL (1.8-7.7); NEUTROPHILS % (AUTO) 69.6 % (40.0-77.0); PLATELET COUNT (AUTO) 143 K/uL (130-400); RED CELL DISTRIBUTION WIDTH 13.1 % (11.0-15.5); WHITE BLOOD COUNT (AUTO) 9.1 K/uL (4.8-10.8)
[2024-02-16 08:54] LABS: ALBUMIN 3.6 g/dL (3.5-5.0); BILIRUBIN,TOTAL 1.1 mg/dL (0.2-1.0); CREATININE 1.1 mg/dL (0.5-1.3); POTASSIUM 3.8 mmol/L (3.5-5.1); TOTAL PROTEIN, SERUM 7.2 g/dL (6.0-8.3)
--- NOTE | 2024-02-16 09:02 | NUR ---
Discharge Update: Patient transferred to 2nd floor S/P [facility]. Patient is still pending Life Vest. Called and spoke to Michelle this morning for an update. [phone] States patient is still pending to obtain information for financial dept. States will call back with more information.
--- NOTE | 2024-02-16 11:21 | NUR ---
CM NOTE/LIFE VEST CM spoke to Fouzia with [employer] Life Vest. States they have received all pending documentation and are pending review. CM notified Fouzia that patient is pending discharge today. States they will reach out to CM once approved.
--- NOTE | 2024-02-16 12:10 | NUR ---
Nursing note-Shortness of breath Patient called out stating feeling short of breath and jittery. Patient states that feels can not take deep breath. SPO2 reading at 96 % on room air. Patient's blood glucose was evaluated and revealed 157. Patient states he feels that it's because he is taking a lot more medications than he is used to. Patient states he does not monitor blood pressure at home and only takes one medication for blood pressure. MICHELLE Alanis made aware. [id number] Alanis and Dr. Hicks rounding on patient and made aware of how patient has been feeling. Pending Life Vest to be arranged and delivered.
[2024-02-16] MEDS: TICAGrelor 90 MG TABLET PO ONE (13:05)
--- NOTE | 2024-02-16 15:37 | PN ---
[facility] CARDIOLOGY PROGRESS NOTE Date Patient Seen: Feb 16, 2024 Time of Visit: 15:35 Problem List: Hypertension Elevated troponin Cardiomyopathy Interval History: POD 1 from [facility] with LAD stenting Reports shortness of breath this AM, new Physical Examination: GENERAL: [No acute distress.] LUNGS: [Clear breath sounds bilaterally. No wheezes, or rhonchi.] HEART: [Normal rate and rhythm. Normal S1 and S2 without murmurs, gallop or rub.] EXT: [No clubbing, cyanosis or edema.] SKIN: [No rashes or lesions noted.] VASC: Right groin access site mildly tender, 2+ pulse, no hematoma or ecchymoses. R DP palpable. NEURO: [Awake, alert, and oriented x3. No focal sensory or strength deficits noted.] Laboratory: [ ] Hematology Labs: Test 02/16/24 08:30 Range/Units White Blood Count 9.1 4.8-10.8 K/uL Red Blood Count 5.60 4.50-6.20 MIL/uL Hemoglobin 16.5 14.0-18.0 g/dL Hematocrit 49.3 42-54 % Mean Corpuscular Volume 88.0 79-99 fL Mean Corpuscular Hemoglobin 29.5 27.0-33.0 pg Mean Corpuscular Hemoglobin Concent 33.5 32.0-36.0 g/dL Red Cell Distribution Width 13.1 11.0-15.5 % Platelet Count 143 130-400 K/uL Mean Platelet Volume 10.9 H 7.5-10.5 fL Immature Granulocyte % (Auto) 0.2 0-1 % Neutrophils (%) (Auto) 69.6 40.0-77.0 % Lymphocytes (%) (Auto) 21.7 21.0-51.0 % Monocytes (%) (Auto) 7.8 3.0-13.0 % Eosinophils (%) (Auto) 0.5 0.0-8.0 % Basophils (%) (Auto) 0.2 0.0-5.0 % Neutrophils # (Auto) 6.3 1.8-7.7 K/uL Lymphocytes # (Auto) 2.0 1.0-4.8 K/uL Monocytes # (Auto) 0.7 0.1-1.0 K/uL Eosinophils # (Auto) 0.05 0.00-0.70 K/uL Basophils # (Auto) 0.02 0.00-0.20 K/uL Absolute Immature Granulocyte (auto 0.02 0-1 K/uL Nucleated Red Blood Cells 0.0 0.0-0.19 % Chemistry Labs: Test 02/16/24 10:42 02/16/24 08:30 Range/Units Whole Blood Glucose 157 H 70-110 MG/DL Sodium Level 139 136-145 mmol/L Potassium Level 3.8 3.5-5.1 mmol/L Chloride Level 104 101-111 mmol/L Carbon Dioxide Level 23 21-32 mmol/L Blood Urea Nitrogen 15 7-18 mg/dL Creatinine 1.1 0.5-1.3 mg/dL Glomerular Filtration Rate Calc 79 >90 mL/min Random Glucose 122 H 70-105 mg/dL Total Calcium 8.5 8.5-10.1 mg/dL Magnesium Level 2.00 1.80-2.40 mg/dL Total Bilirubin 1.1 H 0.2-1.0 mg/dL Aspartate Amino Transf (AST/SGOT) 21 10-37 U/L Alanine Aminotransferase (ALT/SGPT) 32 12-78 U/L Alkaline Phosphatase 86 50-136 U/L Total Protein 7.2 6.0-8.3 g/dL Albumin 3.6 3.5-5.0 g/dL Coagulation Labs: Test 02/15/24 19:05 02/15/24 04:17 Range/Units Activated Partial Thromboplast Time 60.6 #H 26.3-35.5 SEC Prothrombin Time 11.0 9.6-11.6 SEC Prothromb Time International Ratio 1.02 0.85-1.15 Impression and Plan: Coronary artery disease NSTEMI [facility] on 02/14 : Lithotripsy angioplasty to proximal and mid LAD with a 4 mm x 12 mm balloon deployed up to six atmospheres for a total of six treatments overlapping fashion, Stent placement to proximal mid LAD with the use of a 4 mm x 34 mm resolute keo stent deployed to 4.30 mm under IVUS guidance with Dr Moriah Armstrong Hypertensive emergency on presentation New onset cardiomyopathy with LVEF 30-35% Heavy ETOH use Diastolic dysfunction Continue aspirin, statin Continue GDMT for HFREF : Entresto, beta michelle, spironolactone, jardiance. Due to LVEF <35%, LifeVest upon discharge. Order signed 02/11/24. Continue uninterrupted DAPT with aspirin 81 mg q daily. Will transition from ticagrelor to prasugrel due to complaint of shortness of breath, which he states is new and may be adverse effect of medication. Will need re-load with prasugrel 60mg once now and prasugrel 10mg daily thereafter. Uninterrupted DAPT x12 months with plans for lifelong monotherapy with aspirin. Will see the patient in follow up as outpatient. OK for d/c once LifeVest arranged. SHERLY MAXWELL DO Feb 16, 2024 15:37
[2024-02-16] MEDS: PRASUGREL HCL 10 MG TABLET PO ONE (16:44)
--- NOTE | 2024-02-16 16:47 | NUR ---
CM NOTE CM f/u with patient regarding pending documents. States he has called his bank and he was told it will take 2 days for requested documents. CM explained that patient assistance application is pending approval because of missing documents. Verbalized understanding. CM updated Michelle with [employer]. States they can follow up with patient and continue process at home. CM to update Dr. Hicks in AM about clearance for home without life vest.
[2024-02-16] MEDS ORDERED: TICAGrelor 90 MG TABLET PO SCH (21:00)
[2024-02-17] VITALS (7 sets, daily range): BP systolic 130–158; BP diastolic 91–101; PULSE 59–66; RESP 18–20; TEMP 98.1–98.9; O2SAT 98
[2024-02-17] MEDS: PRASUGREL HCL 10 MG TABLET PO SCH (08:31)
--- NOTE | 2024-02-17 08:42 | PN ---
[facility] PROGRESS NOTE Date of Service: Feb 17, 2024 Time of Service: 08:32 SUBJECTIVE: [ ] This is a 54-year-old male that presents in ER with concerns of shortness a breath. Onset one week, however today was different shortness of breast duration was longer. He reports he only happens in the morning when he is getting dressed to go to work. Patient also reports edema to lower extremity occasionally over the past week. Associated symptoms racing of the heart. Denied chest pain,or dizziness Patient denies smoking but does report drinks alcohol on a daily basis eight beers daily. Patient has significant medical history hypertension hyperlipidemia however noncompliance with medication treatment. 02/10/2024 patient is seen and examined in ER holding [address] Jimenez patient was seen by executive recruiter's appreciate their input. Echo new onset of cardiomyopathy with LV EF of 30-35% diastolic dysfunction. Scheduled CCTA with Lexiscan. Patient denies no chest pain or shortness a breath. We will follow- up on Lexiscan results. 02/11/24 patient is seen and examined with Dr. Jimenez room 321. Review executive recruiter's note in detail patient will need LifeVest upon discharge given to EF of 35%. Blood pressure medication being adjusted executive recruiter's added sp ironolactone this morning blood pressure 182/117 overnight patient was given hydralazine. This morning blood pressure 142/93. The patient complained of abd discomfort, having bowel movement will get CT abd/pelvis now will follow up results. 02/12/24: patient seen and examined . Patient continues uncontrolled blood pressure executive recruiter's adjusted now patient is on Toprol-XL 50 p.o. daily Norvasc5 mg p.o. b.i.d. harm losartan 50 mg p.o. b.i.d. we will start hydralazine given to patient became flushed. Patient is pending LifeVest no chest pain events overnight. 02/13/24 patient is seen and examined reviewed chart. Case management to arrange LifeVest in process. Blood pressure continues [id number] we will increase spironolactone to 50 mg daily. We will continue to monitor blood pressure. Patient denied chest pain, shortness a breath. 02/14/24 patient is seen and examined with attending reviewed chart, no chest pain events overnight. blood pressure continues systolic above 160. Jardiance was just initiated this morning Entresto dosage was increased per executive recruiter's patient with dyspnea at rest patient is scheduled for a left heart catheterization in a.m... We will monitor BP. Life vest in process 02/15/24 patient is seen and examined with attending Dr. Jimenez reviewed chart. Patient is alert oriented x3. no chest pain events overnight. we appreciate executive recruiter's input patient's blood pressure is much controlled now. Patient is pending left heart catheterization coronary angiography with possible PCI 02/16/24 patient is seen and examined with Dr. Jimenez reviewed chart: status post left heart catheterization5. Lithotripsy angioplasty to proximal and mid LAD with a 4 mm x 12 mm balloon deployed up to six atmospheres for a total of six treatments overlapping fashion . Stent placement to proximal mid LAD with the use of a 4 mm x 34 mm resolute keo stent deployed to 4.30 mm as per executive recruiter's recommendations dual antiplatelet therapy uninterrupted for a minimum of three months then consider single agent thereafter high dose statin therapy and consider outpatient Jardiance and Farxiga. We will wait for executive recruiter's clearance in final recommendations on medications. We continue to wait for LifeVest being arranged by case management 02/17/2024 patient is seen and examined with Dr. Jimenez reviewed chart appreciate executive recruiter's input. patient we will be on no interruption dapt therapy for12 months with Prasurgel 10 mg po daily with plan for long long monotherapy with baby aspirin we continue to wait for LifeVest. Patient denies chest pain or shortness for breath at this time however did not noted patient having tremors most likely alcohol withdrawals [facility] protocol. REVIEW OF SYSTEMS CONSTITUTIONAL: Denies fevers, chills, or night sweats. No unintentional weight loss reported. NEUROLOGICAL: Denies headache, amaurosis fugax, motor weakness, sensory deficit, vertigo/spinning sensation, gait abnormalities, or tremors. ENT: No hearing loss, otalgia, otorrhea, rhinitis, rhinorrhea, hoarseness, or sore throat. CARDIOVASCULAR: Denies any exertional angina, dyspnea on exertion, orthopnea, paroxysmal nocturnal dyspnea, palpitations, life-threatening arrhythmias, claudication. PULMONARY: Denies any shortness of breath, cough, phlegm/sputum, hemoptysis, pleuritic chest pain. SLEEP: Denies morning headaches, daytime somnolence or napping. Denies difficulty falling asleep, staying asleep, waking from sleep. Denies knowledge of snoring. GASTROINTESTINAL: Denies any type of dysphagia to either liquids or solids. Denies nausea, vomiting, pyrosis, early satiety, abdominal pain, diarrhea, constipation, or changes in stool consistency or caliber. Denies coffee-ground emesis, hematemesis, hematochezia, or melanotic stools. GENITOURINARY: Denies frequency, urgency, nocturia, hematuria or incontinence (Storage/Irritative symptoms.) Low urinary stream, straining to void, urinary intermittency or hesitancy, splitting of the voiding stream, terminal dribbling. ENDOCRINOLOGIC: Denies polyuria, polydipsia, polyphagia or heat/cold intolerances. HEMATOLOGIC: Denies thrombophilia/previous clots, or coagulopathy/bleeding disorders. ONCOLOGIC: Denies personal history of malignancy. DERMATOLOGIC: Denies rashes or pruritus. PSYCHIATRIC: Denies any suicidal or homicidal ideation. Denies hallucinations. PHYSICAL EXAM GENERAL APPEARANCE: The patient is awake, alert, and oriented, in no acute cardiopulmonary distress. NEUROLOGICAL: Cranial nerves II-XII grossly intact. Motor is 5/5 in bilateral upper and lower extremities proximal to distal. No sensory deficits. HEENT: Face is symmetric. Pupils are equal and reactive. Extraocular movements are intact. NECK: Supple. No JVD. No thyromegaly. No submental, submandibular, pre- /postauricular, occipital or supraclavicular lymphadenopathy. CHEST: Normal chest expansion. No Telemetry. LUNGS: Absence of any rales, rhonchi or any wheezing. CARDIOVASCULAR: Regular. S1 and S2 normal. No appreciable rubs, murmurs or gallops. ABDOMEN: Soft, nontender, and nondistended. There is no rebound, voluntary guarding, or rigidity. : Deferred. No Keller. EXTREMITIES: Non-edematous and not cyanotic. No clubbing. Good capillary refill. SKIN: No skin breakdown. Vital Signs (last 8hr) Date Time Temp Pulse Resp B/P (MAP) Pulse Ox O2 Delivery O2 Flow Rate FiO2 02/17/24 08:28 99.0 64 18 158/101 98 Room Air 02/17/24 07:11 98 Room Air* 0 21 02/17/24 03:22 98.2 62 18 154/93 97 Room Air LABS: Laboratory: Test 02/17/24 05:28 02/16/24 08:30 02/15/24 19:05 Range/Units Whole Blood Glucose 114 H 70-110 MG/DL White Blood Count 9.1 4.8-10.8 K/uL Red Blood Count 5.60 4.50-6.20 MIL/uL Hemoglobin 16.5 14.0-18.0 g/dL Hematocrit 49.3 42-54 % Mean Corpuscular Volume 88.0 79-99 fL Mean Corpuscular Hemoglobin 29.5 27.0-33.0 pg Mean Corpuscular Hemoglobin Concent 33.5 32.0-36.0 g/dL Red Cell Distribution Width 13.1 11.0-15.5 % Platelet Count 143 130-400 K/uL Mean Platelet Volume 10.9 H 7.5-10.5 fL Immature Granulocyte % (Auto) 0.2 0-1 % Neutrophils (%) (Auto) 69.6 40.0-77.0 % Lymphocytes (%) (Auto) 21.7 21.0-51.0 % Monocytes (%) (Auto) 7.8 3.0-13.0 % Eosinophils (%) (Auto) 0.5 0.0-8.0 % Basophils (%) (Auto) 0.2 0.0-5.0 % Neutrophils # (Auto) 6.3 1.8-7.7 K/uL Lymphocytes # (Auto) 2.0 1.0-4.8 K/uL Monocytes # (Auto) 0.7 0.1-1.0 K/uL Eosinophils # (Auto) 0.05 0.00-0.70 K/uL Basophils # (Auto) 0.02 0.00-0.20 K/uL Absolute Immature Granulocyte (auto 0.02 0-1 K/uL Nucleated Red Blood Cells 0.0 0.0-0.19 % Sodium Level 139 136-145 mmol/L Potassium Level 3.8 3.5-5.1 mmol/L Chloride Level 104 101-111 mmol/L Carbon Dioxide Level 23 21-32 mmol/L Blood Urea Nitrogen 15 7-18 mg/dL Creatinine 1.1 0.5-1.3 mg/dL Glomerular Filtration Rate Calc 79 >90 mL/min Random Glucose 122 H 70-105 mg/dL Total Calcium 8.5 8.5-10.1 mg/dL Magnesium Level 2.00 1.80-2.40 mg/dL Total Bilirubin 1.1 H 0.2-1.0 mg/dL Aspartate Amino Transf (AST/SGOT) 21 10-37 U/L Alanine Aminotransferase (ALT/SGPT) 32 12-78 U/L Alkaline Phosphatase 86 50-136 U/L Total Protein 7.2 6.0-8.3 g/dL Albumin 3.6 3.5-5.0 g/dL Activated Partial Thromboplast Time 60.6 #H 26.3-35.5 SEC Current Medications Medications (Trade) Dose Ordered Sig/Chris Route PRN Reason Start Time Stop Time Status Last Admin Dose Admin Acetaminophen (TYLenol 325MG TAB) 650 mg Q4H PRN PO TEMPERATURE GREATER THAN 101.5 02/09/24 14:00 03/10/24 13:59 Aspirin (Aspirin 81mg Chew Tab) 81 mg DAILY PO 02/10/24 09:00 03/11/24 08:59 02/16/24 08:42 81 MG Atorvastatin Calcium (LIPItor 20MG) 20 mg HS PO 02/09/24 21:00 03/10/24 20:59 02/16/24 20:18 20 MG Empaglifozin (Jardiance 10mg) 10 mg DAILY PO 02/14/24 09:00 03/15/24 08:59 02/16/24 08:43 10 MG Enoxaparin Sodium (Lovenox 80mg) 80 mg DAILY SQ 02/10/24 09:00 02/09/24 14:53 DC Heparin Sodium (Porcine) (HEParin 5,000 UNIT VIAL) 5,000 unit Q12H SQ 02/09/24 10:00 02/09/24 13:46 DC Hydralazine HCl (APRESOLine 20MG INJ) 10 mg Q6H PRN IV ADMINISTER FOR SBP > 160 02/11/24 00:30 03/12/24 00:29 02/16/24 11:18 10 MG Hydralazine HCl ([id number] TAB) 25 mg TID PO 02/11/24 16:00 02/12/24 10:44 DC 02/12/24 08:55 25 MG Labetalol HCl (TRANdate 20MG SYG) 10 mg Q6H PRN IV systolic > 160 02/09/24 15:30 02/13/24 10:19 DC 02/12/24 20:26 10 MG Losartan Potassium (CozAAR 50 mg TAB) 50 mg DAILY PO 02/10/24 09:00 02/12/24 07:34 DC 02/11/24 09:22 50 MG Magnesium Sulfate 50 ml @ 0 mls/hr PROTOCOL PRN IV low mag level 02/09/24 14:00 03/10/24 13:59 Metoprolol Succinate (TopROL XL) 50 mg DAILY PO 02/12/24 09:00 03/13/24 08:59 02/16/24 08:42 50 MG Metoprolol Tartrate (loprESSOR) 12.5 mg BID PO 02/10/24 09:00 02/11/24 18:02 DC 02/11/24 09:22 12.5 MG Metoprolol Tartrate (loprESSOR) 25 mg BID PO 02/11/24 21:00 02/12/24 07:38 DC 02/11/24 21:57 25 MG Potassium Chloride 100 ml @ 100 mls/hr AD PRN IV POTASSIUM PROTOCOL 02/09/24 14:00 03/10/24 13:59 Potassium Chloride (K-Dur/Klor-Con 20meq) 20 meq AD PRN PO POTASSIUM PROTOCOL 02/09/24 14:00 03/10/24 13:59 02/11/24 01:28 20 MEQ Potassium Chloride (KCl 10% Elixir 20meq/15ml) 20 meq AD PRN PO POTASSIUM PROTOCOL 02/09/24 14:00 03/10/24 13:59 Prasugrel (Effient 10mg) 10 mg DAILY PO 02/17/24 09:00 03/18/24 08:59 02/17/24 08:31 10 MG Sacubitril/ Valsartan (Entresto 24 Mg-26 Mg Tablet) 1 each ONCE PO 02/14/24 10:00 02/14/24 10:01 DC 02/14/24 10:18 1 EACH Sacubitril/ Valsartan (Entresto 49 Mg-51 Mg Tablet) 1 each [id number] PO 02/12/24 09:00 02/14/24 08:49 DC 02/14/24 05:54 1 EACH Sacubitril/ Valsartan (Entresto 97 Mg-103 Mg Tablet) 1 each BID PO 02/14/24 09:00 03/15/24 08:59 02/16/24 20:18 1 EACH Sodium Chloride 1,000 ml @ 100 mls/hr Q10H IV 02/15/24 17:00 02/15/24 22:59 DC 02/15/24 18:05 100 MLS/HR Spironolactone (Aldactone 25mg) 25 mg DAILY PO 02/11/24 09:00 03/12/24 08:59 02/16/24 08:42 25 MG Thiamine HCl (Vitamin B-1) 100 mg DAILY PO 02/10/24 09:00 03/11/24 08:59 02/16/24 08:42 100 MG Ticagrelor (BRILinta) 90 mg BID PO 02/16/24 21:00 02/16/24 16:09 DC DIAGNOSTICS / RADIOLOGY: [ ] ASSESSMENT: NSTEMI POA status post left heart catheterization Lithotripsy angioplasty to proximal and mid LAD with a 4 mm x 12 mm balloon deployed up to six atmospheres for a total of six treatments overlapping fashion and Stent placement to proximal mid LAD with the use of a 4 mm x 34 mm resolute keo stent deployed to 4.30 mm Acute heart failure with diastolic dysfunction EF of 30-35%. POA New onset of cardiomyopathy EF 30-35% POA suspecting type II ID in the setting of uncontrolled blood pressure POA HTN urgency POA Tachycardia POA Dyspnea with minimal exertion POA ETOH abuse POA hypokalemia POA abd pain PLAN: [ ] admit to [facility] with telemetry monitoring consult: [employer] LifeVest upon discharge case management; order was signed [employer]'s schedule patient for left heart catheterization in a.m.. changes made to BP meds: started the patient on toprol xl 50 mg daily losartan 50 mg po bid, Norvasc 5 mg bid. Entresto b.i.d. dosage was increased. Jardiance continues will cont with [id number] mg po daily aspirin and statin therapy we will be changed to a high dose prior to discharge patient needs to be on dual anti platelet therapy for three months 6 minute walk close to discharge. [facility] protocol provided counseling social work faculty member for community resources. Replace electrolytes as needed per protocol goal is to keep potassium above four and magnesium above 2 PRN: MEDICATIONS Tylenol 650 mg po every 4 hrs for fever Zofran 4 mg IV every 6 hrs for n/v Hydralazine 10 mg IV every 4 hrs systolic pressure > 160 Supportive measures: DVT ppx, GI ppx all questions answered Case management life vest in process Supervising MD: Dr.Ellis Montes De Oca c/blanca ATTESTATION BY PHYSICIAN I have seen and examined the patient. I reviewed the documentation, medical decision making, and treatment plan as noted by the mid-level provider above. I agree with the findings and plan of care. DOMO JIMENEZ MD, ELIZABETH NP Feb 17, 2024 08:42
[2024-02-17] MEDS ORDERED: LORazepam 2 MG/ML 1 ML VIAL IVP PRN ×2 (11:30)
[2024-02-17] MEDS ORDERED: chlordiazePOXIDE HCL 25 MG CAP PO PRN ×2 (11:30)
[2024-02-17] MEDS ORDERED: PHARMACY COMMUNICATION MISC PRN (11:30)
--- NOTE | 2024-02-17 15:36 | NUR ---
CM NOTE Patient provided copy of pay stubs for [employer] patient assistance application. Information forwarded to [employer]. CM received call from Michelle with [employer]. States all documents received and case is still under review. CM to f/u.
[2024-02-17] MEDS: atorVAStatin 40 MG TABLET PO SCH (21:01)
[2024-02-18] VITALS: BP 156/94; PULSE 58; RESP 20; TEMP 98.8
[2024-02-18 04:00] VITALS: BP 141/87; PULSE 67; RESP 20; TEMP 98.1
[2024-02-18 07:57] VITALS: BP 158/102; PULSE 63; RESP 16; TEMP 98.1
[2024-02-18] MEDS ORDERED: PRAS10TA6 PO (08:24)
[2024-02-18] MEDS ORDERED: ATOR40TA69 PO (08:24)
[2024-02-18] MEDS ORDERED: EMPA10TA PO (08:24)
[2024-02-18] MEDS ORDERED: METO50TA9 PO (08:24)
[2024-02-18] MEDS ORDERED: SACU1TAB4 PO (08:24)
[2024-02-18 08:48] VITALS: O2SAT 98
[2024-02-18 10:16] VITALS: BP 150/93; PULSE 68; RESP 18; TEMP 98
--- NOTE | 2024-02-18 10:30 | NUR ---
PATIENT ALERT AND ORIENTED X4, WITH AT BEDSIDE, BEING DISCHARGED HOME. PATIENT HAS LIFE VEST ON. EDUCATED TO FOLLOW UP WITH PCP AND CARDIOLOGY PER SCHEDULED APPOINTMENT. EDUCATED ON NEW MEDICATION LIST, AND EACH MEDICATION EXPLAINED TO THE PATIENT, INCLUDING SIDE EFFECTS. IV REMOVED WITHOUT COMPLICATIONS. ALL QUESTIONS ANSWERED, PATIENT AND FAMILY VERBALIZED COMPLETE UNDERSTANDING.
[2024-02-18] MEDS ORDERED: FAMO20TA8 PO (11:15)
--- NOTE | 2024-02-18 11:22 | DS ---
Discharge Summary Hospital Course Summary: This is a 54-year-old male that presents in ER with concerns of shortness a breath. Onset one week, however today was different shortness of breast duration was longer. He reports he only happens in the morning when he is getting dressed to go to work. Patient also reports edema to lower extremity occasionally over the past week. Associated symptoms racing of the heart. Denied chest pain,or dizziness Patient denies smoking but does report drinks alcohol on a daily basis eight beers daily. Patient has significant medical history hypertension hyperlipidemia however noncompliance with medication treatment. 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 The patient underwent LHC on 02/14 : Lithotripsy angioplasty to proximal and mid LAD with a 4 mm x 12 mm balloon deployed up to six atmospheres for a total of six treatments overlapping fashion, Stent placement to proximal mid LAD with the use of a 4 mm x 34 mm resolute keo stent deployed to 4.30 mm under IVUS guidance with Dr Moriah Armstrong Per Dr Crowe: will Continue uninterrupted DAPT with aspirin 81 mg q daily and prasugrel 10 mg Uninterrupted DAPT x12 months with plans for lifelong monotherapy with aspirin. discharged with LIFE VEST follow up with Dr Crowe one wk. Continue aspirin, statin Continue GDMT for HFREF : Entresto, beta michelle, spironolactone, jardiance. Per industrial custodian's. Patient was instructed on fluid restriction counseling was provided on alcohol use community resources provided. Patient is clinically stable for discharge. Procedure(s): REASON: sob , elevated troponin ORDERING PHYSICIAN: JANA BRITT NP PROCEDURE: ECHO [facility] [place] - ECHO 2-D COMPLETE APPROVED REPORT EXAM: Two-dimensional and M-mode echocardiogram with Doppler and color Doppler. INDICATION ICD: Shortness of breath R06.02 2D Dimensions RVDd 4.0 cm LVEF(%) 40.0 (>50%) LVED Vol(simp.) 180.0 mL IVSd 1.3 (0.7-1.1cm) FS(%) 20 % LVES Vol(simp.) 120.0 mL LVDd 5.6 (3.8-5.6cm) LA (2D) 4.9 (1.6-4.0cm) LVEF(%, simp.) 33 % PWd 1.4 (0.7-1.1cm) Ao Root(2D) 3.5 (2.0-3.7cm) LA ESV INDEX (4CH) 36.30 mL/m2 IVSs 1.5 cm LVOT diam 2.5 (1.8-2.4cm) LA ESV INDEX (2CH) 44.20 mL/m2 LVDs 4.5 (2.5-4.0cm) IVC diam 1.9 cm LA ESV INDEX (BP) 43.60 mL/m2 PWs 2.2 cm Deformation Strain Apical 4 -9.0 % Apical 2 -10.0 % Apical 3 -11.0 % Global Strain -10.0 % M-Mode Dimensions EPSS 2.0 cm LA (MM) 4.9 (1.6-4.0cm) Ao Root(MM) 3.8 (2.0-3.7cm) Aortic Valve AoV VTI 0.2 m Ao Mean GR 3.0 mmHg LVOT VTI 0.13 m ALISHA (VMAX) 3.4 cm2 ALISHA (VTI) 3.4 cm2 Mitral Valve MV E Vmax 117.0 cm/s DECEL Time 158 ms MV A Vmax 48.4 cm/s P 1/2 T 82 ms E/A ratio 2.4 MVA (PHT) 2.7 cm2 MR Max PG 63 mmHg TDI E/E' Medial 27.2 E/E' Lateral 26.6 Medial E' Peak V 4.30 cm/s Lateral E' Peak V 4.40 cm/s Pulmonary Valve PV VTI 0.19 m PV Mean GR 2 mmHg PI End Joana. Gil 133.0 cm/s Left Ventricle The left ventricle is mildly dilated. GLS -10% There is global hypokinesis of the left ventricle. Mild concentric left ventricular hypertrophy. LVEF is 30- 35%. Stage II diastolic dysfunction. Right Ventricle The right ventricle is normal size. The right ventricular systolic function is normal. Atria The left atrium is moderately dilated. The right atrium size is normal. Aortic Valve The aortic valve is normal in structure. No aortic regurgitation is present. There is no aortic valvular stenosis. Mitral Valve The mitral valve is normal in structure. There is trivial mitral valve regurgitation noted. There is no mitral valve stenosis. Tricuspid Valve The tricuspid valve is normal in structure. There is no tricuspid valve regurgitation noted. Pulmonic Valve The pulmonary valve is normal in structure. There is no pulmonic valvular regurgitation. Great Vessels The aortic root is normal in size. The IVC is normal in size and collapses >50% with inspiration. Pericardium There is no pericardial effusion. Other Information Quality : Good Rhythm : NSR Conclusion There is global hypokinesis of the left ventricle. LVEF is 30-35%. Mild concentric left ventricular hypertrophy. Stage II diastolic dysfunction. The left atrium is moderately dilated. DICTATED BY: SHERLY CROWE DO DATE: 02/09/24 1347 ELECTRONICALLY SIGNED BY: SHERLY CROWE DO DATE: 02/10/24 0511 REASON: ELEVATED TROPONIN ORDERING PHYSICIAN: SHERLY CROWE DO PROCEDURE: CTCAWC - CT CARDIAC ANGIO W/CONT. CCTA CT CARDIAC ANGIO W/CONT. CCTA REASON: ELEVATED TROPONIN COMPARISON: None TECHNIQUE: Images are obtained through the heart in the axial plane before and during bolus IV contrast infusion, 100 cc Omnipaque 350. 2-D and 3-D multiplanar reconstruction images were then performed. The injection had to be repeated once due to motion artifact on the first sequence, total contrast volume was 200 cc. FINDINGS: This dictation is for the noncardiac findings only. Cardiac and coronary artery findings are reported separately. Visualized portions of the lungs are clear. There is normal-appearing pulmonary interstitium. There is no hilar or mediastinal lymphadenopathy. Chest wall structures appear unremarkable. IMPRESSION: 1. Unremarkable noncardiac portions of CT cardiac angiography. REASON: abd pain ORDERING PHYSICIAN: JANA BRITT NP PROCEDURE: ABD PEL WO - CT ABDOMEN/PELVIS W/O CONTRAST CT ABDOMEN/PELVIS W/O CONTRAST REASON: abd pain COMPARISON: None. FINDINGS: Lung bases are clear. There are no focal liver lesions. There are normal-appearing kidneys.. Spleen and pancreas appear unremarkable. The gallbladder appears normal as well. Bowel loops appear unremarkable. This includes normal appearance of the appendix There is no evidence of free fluid or intraperitoneal air. There are no focal fluid collections. Aorta and retroperitoneum appear normal as do pelvic soft tissue structures. There is a minimal periumbilical ventral hernia containing only mesenteric fat. Osseous structures appear unremarkable. IMPRESSION: 1. No acute finding on noncontrast CT abdomen and pelvis. 2. Minimal pedicle ventral hernia containing only mesenteric fat. CT was performed with one or more following dose reduction techniques: automated exposure control, adjustment of the mA and kv according to patient's size, or use of a iterative reconstruction technique. REASON: eval CHF ORDERING PHYSICIAN: FRANCIS FU PROCEDURE: CXR1VW - CHEST 1VW PORTABLE CHEST RADIOGRAPH INDICATION: eval CHF COMPARISON: 02/09/2024 FINDINGS: learning developer leads overlie the field of view. Heart size is normal. The pulmonary vascularity and imani appear normal. No abnormal pulmonary parenchymal opacity or consolidation identified. No significant pleural effusion noted. No pneumothorax detected. IMPRESSION: No radiographic evidence for any acute cardiopulmonary process. Assessment/Plan: Discharged NSTEMI POA status post left heart catheterization Lithotripsy angioplasty to proximal and mid LAD with a 4 mm x 12 mm balloon deployed up to six atmospheres for a total of six treatments overlapping fashion and Stent placement to proximal mid LAD with the use of a 4 mm x 34 mm resolute keo stent deployed to 4.30 mm Acute heart failure with diastolic dysfunction EF of 30-35%. POA New onset of cardiomyopathy EF 30-35% POA suspecting type II CO in the setting of uncontrolled blood pressure POA HTN urgency POA Tachycardia POA Dyspnea with minimal exertion POA ETOH abuse POA hypokalemia POA abd pain PLAN: [ ] ADMISSION DATE: DISCHARGE DATE: 02/18/2024 DISPOSITION: Home CONDITION: Stable ENROLLMENT SERVICES DEAN(S): [employer] DR Vargas, Dr Nathaniel Solis FOLLOW UP APPOINTMENT(S): DR Crowe one wk. PROCEDURES: Left heart catheterization x1 stent IMAGING (S) report attached to summary : chest xray, abd/pelvis CT, Coronary angiography CT and ECHO MICROBIOLOGY: report attached to summary; ACTIVITY: Ad miguel HOME MEDICATIONS None profile NEW MEDICATIONs Famotidine 20 Mg Tablet daily for PUD prophylaxis Aspirin (Aspirin 81MG Chew Tab) 81 Mg Tab.chew Atorvastatin Calcium (Lipitor) 40 Mg Tablet Empagliflozin (Jardiance) 10 Mg Tablet Metoprolol Succinate (Toprol Xl) 50 Mg Tab.er.24h Prasugrel HCl (Effient) 10 Mg Tablet Sacubitril/Valsartan (Entresto 97 mg-103 mg Tablet) 97 Mg-103 Mg Tablet Spironolactone 25 Mg Tablet Thiamine HCl (Vitamin B-1) 100 Mg Tablet Counseling provided alcohol abuse community resources provided TEACHING: WALLY VEST Instructed, Fluid restriction avoid sodium and side effects and adverse reaction of new medications. Emergency instructions: The patient was instructed to present to the nearest Emergency Department or call 911 should their symptoms return or worsen. Home Medications: Active Scripts Sacubitril/Valsartan (Entresto 97 mg-103 mg Tablet) 97 Mg-103 Mg Tablet, 1 EACH PO BID for 30 Days, #60 TAB Prov:JANA BRITT NP 02/18/24 Prasugrel HCl (Effient) 10 Mg Tablet, 10 MG PO DAILY for 30 Days, #30 TAB Prov:JANA BRITT NP 02/18/24 Metoprolol Succinate (Toprol Xl) 50 Mg Tab.er.24h, 50 MG PO DAILY for 30 Days, #30 TAB Prov:JANA BRITT NP 02/18/24 Empagliflozin (Jardiance) 10 Mg Tablet, 10 MG PO DAILY for 30 Days, #30 TAB Prov:JANA BRITT NP 02/18/24 Atorvastatin Calcium (LIPITOR) 40 Mg Tablet, 40 MG PO HS for 30 Days, #30 TAB Prov:JANA BRITT NP 02/18/24 Thiamine HCl (Vitamin B-1) 100 Mg Tablet, 100 MG PO DAILY for 5 Days, #5 TAB Prov:JANA BRITT NP 02/11/24 Spironolactone (Spironolactone) 25 Mg Tablet, 25 MG PO DAILY for 30 Days, #30 TAB Prov:JANA BRITT NP 02/11/24 Metoprolol Tartrate (Lopressor) 25 Mg Tab, 12.5 MG PO BID for 30 Days, #60 TAB Prov:JANA BRITT NP 02/11/24 Losartan Potassium (Cozaar) 50 Mg Tablet, 50 MG PO DAILY for 30 Days, #30 TAB Prov:JANA BRITT NP 02/11/24 Atorvastatin Calcium (Atorvastatin Calcium) 20 Mg Tablet, 20 MG PO HS for 30 Days, #30 TAB Prov:JANA BRITT NP 02/11/24 Aspirin (ASPIRIN 81MG CHEW TAB) 81 Mg Tab.chew, 81 MG PO DAILY for 30 Days, #30 TAB.CHEW Prov:JANA BRITT NP 02/11/24 New Medications: Famotidine (Famotidine) 20 Mg Tablet 20 MG PO DAILY for 30 Days, #30 TAB Aspirin (Aspirin 81MG Chew Tab) 81 Mg Tab.chew 81 MG PO DAILY for 30 Days, #30 TAB.CHEW Atorvastatin Calcium (Lipitor) 40 Mg Tablet 40 MG PO HS for 30 Days, #30 TAB Empagliflozin (Jardiance) 10 Mg Tablet 10 MG PO DAILY for 30 Days, #30 TAB Metoprolol Succinate (Toprol Xl) 50 Mg Tab.er.24h 50 MG PO DAILY for 30 Days, #30 TAB Prasugrel HCl (Effient) 10 Mg Tablet 10 MG PO DAILY for 30 Days, #30 TAB Sacubitril/Valsartan (Entresto 97 mg-103 mg Tablet) 97 Mg-103 Mg Tablet 1 EACH PO BID for 30 Days, #60 TAB Spironolactone (Spironolactone) 25 Mg Tablet 25 MG PO DAILY for 30 Days, #30 TAB Thiamine HCl (Vitamin B-1) 100 Mg Tablet 100 MG PO DAILY for 5 Days, #5 TAB Time spent arranging discharge: 31-60 minutes ATTESTATION BY PHYSICIAN I have seen and examined the patient. I reviewed the documentation, medical decision making, and treatment plan as noted by the mid-level provider above. I agree with the findings and plan of care. DOMO JIMENEZ MD, ELIZABETH NP Feb 18, 2024 11:22
== END 2024-02-18 10:55 | disposition home or self-care (01) | DRG 323 ==
LOC: EDH 08:09 → EDHIP 08:10 → 3DH 02-10 16:51 → 2DH 02-15 18:00
PROVIDERS: ADMIT Hospitalist; ATTEND Hospitalist
PROC: 027034Z Dilation of Coronary Artery, One Artery with Drug-eluting Intraluminal Device, Percutaneous Approach (ICD-10-PCS; principal; 2024-02-15)
PROC: 02F03ZZ Fragmentation in Coronary Artery, One Artery, Percutaneous Approach (ICD-10-PCS; 2024-02-15)
PROC: 4A023N7 Measurement of Cardiac Sampling and Pressure, Left Heart, Percutaneous Approach (ICD-10-PCS; 2024-02-15)
PROC: B211YZZ Fluoroscopy of Multiple Coronary Arteries using Other Contrast (ICD-10-PCS; 2024-02-15)
PROC: B240ZZ3 Ultrasonography of Single Coronary Artery, Intravascular (ICD-10-PCS; 2024-02-15)
DX: I11.0 Hypertensive heart disease with heart failure (principal); I21.A1 Myocardial infarction type 2; I50.43 Acute on chronic combined systolic (congestive) and diastolic (congestive) heart failure; F10.139 Alcohol abuse with withdrawal, unspecified; I16.1 Hypertensive emergency; I42.9 Cardiomyopathy, unspecified; R00.0 Tachycardia, unspecified; F10.10 Alcohol abuse, uncomplicated; E87.6 Hypokalemia; E78.5 Hyperlipidemia, unspecified; Z79.82 Long term (current) use of aspirin; Z79.899 Other long term (current) drug therapy; Z80.42 Family history of malignant neoplasm of prostate; Z82.49 Family history of ischemic heart disease and other diseases of the circulatory system; Z91.199 Patient's noncompliance with other medical treatment and regimen due to unspecified reason; Z91.148 Patient's other noncompliance with medication regimen for other reason; Z79.02 Long term (current) use of antithrombotics/antiplatelets
CPT/HCPCS: 36415; 71045; 74176; 75574; 80048; 80053; 80061; 80305; 81001; 82550; 82948; 83735; 83880; 84443; 84484; 85025; 85378; 85610; 85730; 92972; 92978; 93005; 93306; 93356; 93458; 94760; 99156; 99157; 99291; A4606; C1769; C1887; C1894; C9600; G0378; J0360; J0461; J0583; J1644; J2250; J3010; J3490; Q9967; C1753; C1761; C1874; Q9965